=== PATIENT | male | born 1955 | race Caucasian/White ===

== ENCOUNTER 2018-03-29 11:18 | Inpatient (IN) ==
[2018-03-29] MEDS ORDERED: Etomidate Inj 40 MG/20 ML Vial IV.PUSH ONE (11:19)
[2018-03-29] MEDS ORDERED: Midazolam 50 MG/50 ML Inj 50 MG/50 ML BAG IV.CONT ONE (11:25)
[2018-03-29] MEDS ORDERED: Aspirin 300 MG Supp RECTAL ONE ×2 (11:25→14:00)
[2018-03-29] MEDS ORDERED: fentaNYL 10 mcg/mL Premix Drip 2,500 MCG/250 ML BAG ONE (11:25)
[2018-03-29] MEDS ORDERED: Heparin 10,000 UNITS/10 ML Vial (for IV use) IV.PUSH STA (11:28)
[2018-03-29] MEDS ORDERED: Heparin Drip 25,000 UNIT/250 ML BAG IV.CONT PRN (11:31)
[2018-03-29] MEDS ORDERED: Succinylcholine Inj 200 MG/10 ML Vial ONE (11:31)
[2018-03-29] MEDS: fentaNYL 10 mcg/mL Premix Drip 2,500 MCG/250 ML BAG IV.SIG PRN (11:33)
[2018-03-29] MEDS ORDERED: Etomidate Inj 20 MG/10 ML Ampul IV.PUSH ONE (11:34)
--- NOTE | 2018-03-29 11:34 | ED ---
HPI General Stated Complaint: STEMI Time Seen by Provider: 03/29/18 11:24 Source: EMS Mode of arrival: EMS Limitations: altered mental status History of Present Illness HPI narrative: Patient is a 63-year-old male who presents the emergency room via EMS for STEMI alert. As per EMS, patient was with a girlfriend and reported to her that he was not feeling well. He had a syncopal episode. Apparently, patient did not hit his head on the floor, he was lowered to the floor. Patient did lose pulses, bystanders started CPR. When EMS arrived on scene, patient was found to be in V. fib arrest, he was shocked once at 150 and return to pulses. Patient was found to have ST segment elevations in leads II, III, aVF with reciprocal changes. Patient presents the emergency room obtunded , patient unable to provide any HPI. Related Data Home Medications Medication Instructions Recorded Confirmed Unable to Obtain Home Meds 03/29/18 03/29/18 Allergies Allergy/AdvReac Type Severity Reaction Status Date / Time No Allergy Information Allergy Verified 03/29/18 11:38 Available Review of Systems ROS Unobtainable ROS Unobtainable: unobtainable due to mental status PMFSH History History Provided By: Health Administrator / EMT Medical History Medical History Hypertension (Acute) Exam Narrative Exam Narrative: GENERAL: severe distress SKIN: Focused skin assessment warm/dry. HEAD: Atraumatic. Normocephalic. EYES: Pupils equal and round. No scleral icterus. No injection or drainage. ENT: No nasal bleeding or discharge. Mucous membranes pink and moist. NECK: Trachea midline. No JVD. CARDIOVASCULAR: Regular rate and rhythm. No murmur appreciated. RESPIRATORY: No accessory muscle use. Clear to auscultation. Breath sounds equal bilaterally. GASTROINTESTINAL: Abdomen soft, non-tender, nondistended. Hepatic and splenic margins not palpable. MUSCULOSKELETAL: No obvious deformities. No clubbing. No cyanosis. No edema. NEUROLOGICAL: GCS 3, patient unresponsive Procedures Intubation Time Out Performed: Yes Sedative: etomidate Mg Given: 40 Laryngoscope: fiber optic video scope Assist Device Used: fiber optic device ET Tube Size: 8 ET Tube Uncuffed: No Tube Secured Depth (cm): 24 Tube Secured Location: teeth Tube Placement Confirmation: visualized tube passing through cords, equal breath sounds bilaterally, no breath sounds over epigastrium and confirmation by capnometry Patient Tolerated Procedure: well Intubation Complications: none Course Reevaluation(s) Reevaluation #1: Intubation performed under direct supervision of my attending. I was in the room directly supervising Trini during the intubation Time: 11:30 Critical Care Time Critical Care Time: Yes Total Critical Care Time: 30 Attestation: Aggregate critical care time was 30 minutes. Time to perform other separately billable procedures was not included in the critical care time. My time did not include minutes spent treating any other patients simultaneously or on activities that did not directly contribute to the patient's treatment. The services I provided to this patient were to treat and/or prevent clinically significant deterioration that could result in: , decompensation, deterioration I provided critical care services requiring my management, as noted below: Chart data review, documentation time, medication orders and management, vital sign assessments/reviewing monitor data, ordering and reviewing lab tests, ordering and interpreting/reviewing x-rays and diagnostic studies, care of the patient and discussion of the patient with the admitting physicians. Medical Decision Making MDM Narrative Medical decision making narrative: During the course of the patients emergency department visit, the patients history, examination, and differential diagnosis were reviewed with the patient. The patient was placed on a nuclear monitoring technician with oximetry and frequent blood pressure monitoring. The patient had an IV access obtained and blood work sent for analysis. The patient was initially provided aspirin rectally Patient with a GCS of 3 upon arrival to the emergency room, he was emergently intubated for airway protection. A STEMI alert was called overhead as patient does have ST segment elevations in 2, 3, aVF, he does have a reciprical changes. Dr. Fry at bedside, will bring him to the Fuel Operator emergently. Radiology studies were reviewed and remarkable for [-] Medical Screen Exam Complete: Yes Emergency Medical Condition: Yes Differential Diagnosis Differential Diagnosis: STEMI Lab Data Result diagrams: 03/29/18 11:20 Lab Results 03/29/18 03/29/18 Range/Units 11:20 11:20 WBC 12.2 H (4.0-11.0) th/mm3 RBC 4.14 L (4.50-5.90) mil/mm3 Hgb 13.7 (13.0-17.0) gm/dL POC Hgb (Calc) 13.6 (13.0-17.0) g/dL Hct 40.7 (39.0-51.0) % POC Hct 40.0 (39-51.0) % MCV 98.3 (80.0-100.0) fL MCH 33.1 (27.0-34.0) pg MCHC 33.7 (32.0-36.0) % RDW 14.6 (11.6-17.2) % Plt Count 243 (150-450) th/mm3 MPV 7.8 (7.0-11.0) fL Neut % (Auto) 60.0 (16.0-70.0) % Lymph % (Auto) 32.3 (9.0-44.0) % Aiken % (Auto) 4.4 (0.0-8.0) % Eos % (Auto) 2.8 (0.0-4.0) % Baso % (Auto) 0.5 (0.0-2.0) % Neut # (Auto) 7.3 (1.8-7.7) th/mm3 Lymph # (Auto) 3.9 (1.0-4.8) th/mm3 Aiken # (Auto) 0.5 (0.0-0.9) th/mm3 Eos # (Auto) 0.3 (0.0-0.4) th/mm3 Baso # (Auto) 0.1 (0.0-0.2) th/mm3 WBC Differential . Differential Comment Auto diff final POC Sodium 127 L (137-144) mmol/L POC Potassium 4.3 (3.6-5.0) mmol/L POC Chloride 96 L (102-111) mmol/L POC BUN 13 (5-21) mg/dL POC Creatinine 1.8 H (0.6-1.3) mg/dL POC Glucose 154 H (68-110) mg/dL ECG Data EKG Prior to Arrival: Yes Attestation: I personally reviewed and interpreted this ECG as follows: Interpretation: EKG at 1119: Sinus tach at 105bpm, st seg elevation II, III, aVF , ST seg depression V1-V5 Discharge Plan Discharge Disposition Patient Disposition: 30 Still Patient Discharge Condition Condition: Critical Discharge Details Diagnosis: ST elevation myocardial infarction (STEMI) Physicians Team ED Provider: Quiana Kline ED Midlevel Provider: Trini Zimmerman Primary Care Provider: UNKNOWN, Rxs /Orders / Referrals /Forms Prescriptions: No Action Unable to Obtain Home Meds RF: 0 Status ED Status: With Doctor
[2018-03-29 11:49] LABS: Baso # (Auto) 0.1 th/mm3 (0.0-0.2); Baso % (Auto) 0.5 % (0.0-2.0); Eos # (Auto) 0.3 th/mm3 (0.0-0.4); Eos % (Auto) 2.8 % (0.0-4.0); Hematocrit 40.7 % (39.0-51.0); Hemoglobin 13.7 gm/dL (13.0-17.0); Lymph # (Auto) 3.9 th/mm3 (1.0-4.8); Lymph % (Auto) 32.3 % (9.0-44.0); Mean Corpuscular HGB Conc 33.7 % (32.0-36.0); Mean Corpuscular Hemoglobin 33.1 pg (27.0-34.0); Mean Corpuscular Volume 98.3 fL (80.0-100.0); Mean Platelet Volume 7.8 fL (7.0-11.0); Mono # (Auto) 0.5 th/mm3 (0.0-0.9); Mono % (Auto) 4.4 % (0.0-8.0); Neut # (Auto) 7.3 th/mm3 (1.8-7.7); Platelet Count 243 th/mm3 (150-450); Red Blood Count 4.14 mil/mm3 (4.50-5.90); Red Cell Distribution Width 14.6 % (11.6-17.2); White Blood Count 12.2 th/mm3 (4.0-11.0)
[2018-03-29] MEDS ORDERED: Heparin/NS PF Inj 1,000 ML ONE (11:50)
[2018-03-29] MEDS ORDERED: Heparin 10,000 UNITS/10 ML Vial (for IV use) ONE (11:50)
[2018-03-29] MEDS: Midazolam 50 MG/50 ML Inj 50 MG/50 ML BAG IV.CONT PRN ×2 (11:50→20:31)
[2018-03-29 11:59] LABS: Calcium 9.1 mg/dL (8.5-10.1); Prothrombin Time 9.9 sec (9.8-11.6)
[2018-03-29 12:08] LABS: Creatine Kinase 127 U/L (39-308); Troponin I 0.29 ng/mL (0.02-0.05)
[2018-03-29 12:20] LABS: Creatine Kinase MB 2.7 ng/mL (0.5-3.6)
--- NOTE | 2018-03-29 13:05 | CATHPROC ---
3sun HIS Report Study Information Study Number Admission Scheduled Start Study Start [id number] Mar 29 2018 11:18AM 03/29/2018 Mar 29 2018 11:31AM [place] [facility] Cardiac Catheterization Admit Source Facility Department Emergency department [facility] - Reporting Coordinator Physician and Clinical Staff Initial Ranjan Garcia Adult Ministries Director Jes Davis,FAYE Adult Ministries Director Quiana Sanchez,FAYE Recorder Damien Blue,RT(R) Scrub Cristina Barrow ,RT(R) Procedures Performed Procedure Location (Site) Vessel Name Coronary Angiograms LCA Left Coronary Coronary Angiograms RCA Right Coronary Drug Eluting Inflatio RCA Prox Right Coronary IVUS RCA Right Coronary L Heart Cath PTCA RCA Prox Right Coronary Wire insertion Fem Art (right) Femoral Art Equipment Time Demurrage Agent Description Size Mfg Part Number Used/Scraped WIRE, BALANCE MIDDLEWEIGHT [id number] 11:52 [employer] 190CM Used 190CM *[id number] TRANSDUCER, TRUWAVE [id number] 11:35 LUEVANO KAT * Used W/STOCKCOCK *[id number] BALLOON, 3.5 15[place] [id number] 12:33 [employer] 3.5 15MM Used QUANTUM APEX MR *[id number] 12:24 [employer] STENT, SYNERGY 3.0 X 20MM Used *[id number] INTRODUCER SET, 11:35 [employer] FR 5 [id number] *[id number] Used MICROPUNCTURE STIFF [id number] *[id number] *[id number] 12:46 DAIG/[employer] ANGIOSEAL, FR6 VIP FR 6 Used *[id number] 11:35 [employer] BLANKET,WARM AIR CCL * Used *[id number] 11:35 [employer] PACK, CCL CUSTOM * Used *[id number] 12:32 [employer] MEDICAL 30 TYLER INDEFLATOR Used *[id number] 11:35 [place] [employer] WIRE, 3MMJ .035 180CM 180CM Used *[id number] 11:35 NAMIC MANIFOLD, 4 PORT * Used *[id number] 11:35 [employer]COMED OMNIPAQUE, 350 MG, 150ML 150ML [id number] Used 11:42 NYCOMED OMNIPAQUE, 350 MG, 50ML 50ML [id number] Used [id number] 11:49 TERUMO MEDICAL SHEATH, FR6 TERUMO (10CM) FR 6 Used *[id number] CATHETER, [employer] NATIVE [id number] 12:08 [employer]OL[employer] Used IMAGING *[id number] Equipment Model, Serial, Lot Number and Expiration Data Description Model Number Serial Number Lot Number Expiration Date ANGIOSEAL, FR6 MILLI [id number] 12-03-2018 BALLOON, 3.5 15MM NC QUANTUM [id number] 10-23-2019 APEX MR CATHETER, [employer] NATIVE [id number] 11-04-2019 IMAGING STENT, SYNERGY [id number] 04-18-2018 History: Allergies Allergy Reaction No Allergy Information Available History: Risk Factors Family History of Hypertension Dyslipidemia Previous SC Previous Heart Failure Premature CAD Yes No No No No Prior Valve Prior PCI Prior CABG Surgery No Yes No Cerebrovascular Peripheral Artery Chronic Lung On Dialysis Diabetes Disease Disease Disease No No No No No History: Symptoms/Diagnosis Selection Items Syncope History: CV Disease Selection Items Cardiomyopathy History: Stress Tests Stress or Imaging Studies Performed No History: Arrhythmias Selection Items Supraventricular History: Other Current Smoker No Labs Hgb (g/dl) Hct (%) 11.60-17.00 35.00-51.00 13.6 40 Glucose (mg/dl) BUN (mg/dl) Creatinine (mg/dl) BUN:Creatinine (1:x) 74.00-106.00 7.00-18.00 0.50-1.30 10.00-20.00 154 13 1.8 7.2 Na (meq/l) K (meq/l) Cl (meq/l) 136.00-145.00 3.50-5.10 98.00-107.00 127 4.3 96 CPK-MB (ng/ML) 0.50-3.60 Not Drawn Medication Medication Total Dose (Bolus/Oral) Medication Total Dosage/Unit 1% XYLOCAINE 20 mL BRILLINTA 180 mg FENTANYL 50 mcg/hr HEPARIN 7000 units NTG (IC) 150 mcg VERSED 2 mg VERSED 6 mg/hr Medications (Bolus/Oral) Medication Time Given Dosage/Unit Administered By Reason 03/29/2018 11:40:54 VERSED 2 mg/hr AM Patient arrived on 2 mg/hr VERSED in Right Antecubital via Peripheral IV. Pump/Drip Flow = 0 ml/hr us ing D5W. 03/29/2018 11:41:13 FENTANYL 50 mcg/hr AM Patient arrived on 50 mcg/hr FENTANYL in Right Antecubital via Peripheral IV. Pump/Drip Flow = 0 ml/h r using NaCl .9. 03/29/2018 11:47:27 1% XYLOCAINE 20 mL Ranjan Fry AM 20 mL 1% XYLOCAINE given in lab by Ranjan Fry in Right Groin via Subcutaneous. 03/29/2018 12:06:38 VERSED 4 mg/hr PM Patient arrived on 4 mg/hr VERSED in Right Antecubital via Peripheral IV. Pump/Drip Flow = 0 ml/hr us ing D5W. Increased in lab. 03/29/2018 12:08:40 HEPARIN 6000 units Jes Davis PM 6000 units HEPARIN given in lab by Jes Davis RN in Left Hand via Peripheral IV. 03/29/2018 12:26:36 NTG (IC) 150 mcg Ranjan Fry 150 mcg NTG (IC) given in lab by Ranjan Fry via Intra-coronary. 03/29/2018 12:28:29 HEPARIN 1000 units Jes Davis PM 1000 units HEPARIN given in lab by Jes Davis, FAYE in Left Hand via Peripheral IV. 03/29/2018 12:31:03 VERSED 2 mg Jes Davis 2 mg VERSED given in lab by Jes Davis, FAYE in Left Hand via Peripheral IV. 03/29/2018 12:53:49 BRILLINTA 180 mg Jes Davis PM 180 mg BRILLINTA given in lab by Jes Davis, FAYE in Per mouth via Oral. Medication (Drip) Medication Time Given Dosage/Unit Concentration/Unit Diluent (ml) Solutio n 03/29/2018 11:43:32 IV Solutions 0 mL (IV) 500 NaCl .9 AM IV Solutions given in lab by Quiana Sanchez, FAYE in Left Hand via Peripheral IV. Pump/Drip Flow = 20 ml/hr using NaCl .9. Initial Case Assessment Cardiovascular HR Rhythm NIBP 96 Irregular 141/99 Edema Present Skin color Skin None Pale Warm Flush Circulatory - Right Pulses Dorsalis Pedis Femoral 2 2 Scale (0,1,2,3,4,d) Circulatory - Left Pulses Dorsalis Pedis Femoral 2 2 Scale (0,1,2,3,4,d) Neurological State Unresponsive Respiration - General Respiration Rate SpO2 (%) (B/min) 15 99 Respiration - Ventilator Type Intubation Type ET(oral) Final Case Assessment Cardiovascular HR Rhythm NIBP 99 Sinus 154/122 Edema Present Skin color Skin None Flush Flush Circulatory - Right Pulses Dorsalis Pedis Femoral 2 2 Scale (0,1,2,3,4,d) Circulatory - Left Pulses Dorsalis Pedis Femoral 2 2 Scale (0,1,2,3,4,d) Neurological State Unresponsive Respiration - General Respiration Rate SpO2 (%) (B/min) 14 99 Respiration - Ventilator Type Intubation Type ET(oral) Chronological Log Time Study Chronological Log 11:33:30 Patient arrived via Bed. 11:33:31 Patient Name, D.O.B, / Armband Verified By R.N. 11:33:32 Consent signed by the physician and the patient and verified by the Reporting Coordinator staff. 11:33:34 Pre-op and post- op instructions given; patient acknowledges understanding of instructions. 11:33:35 Verbal Stimulation=2 Physical Stimulation=2 Airway=2 Respiration=2 TOTAL=8. (0=absent, 1=li mited, 2=present) 11:33:36 Presedation assessment performed by Reporting Coordinator RN. 11:33:46 Patient has been NPO for Less than 6Hrs. 11:33:47 Skin Breakdown- unknown. 11:33:49 Patient Warmer Placed on the Table. Vitals capture started with the following parameters, Patient=Adult, Interval=5 min, Initial Pr zqeega=224 mmHg, 11:38:24 Deflation Rate=5 mmHg, Cuff placed on Left Arm 11:39:33 HR=95 bpm, OPDE=533/99 mmhg, IlN5=787.0 %, Resp=10 B/min, Lexus=10, Pacheco=6 11:40:10 Jose Prominences Protected 11:40:42 MD arrived. 11:40:53 A # 20 IV was noted in the Antecubital (right). Grade = 0 11:40:54 Patient arrived on 2 mg/hr VERSED in Right Antecubital via Peripheral IV. Pump/Drip Flow = 0 ml/hr using D5W. 11:41:13 Patient arrived on 50 mcg/hr FENTANYL in Right Antecubital via Peripheral IV. Pump/Drip J Carlos w = 0 ml/hr using NaCl .9. 11:41:18 A # 20 IV was noted in the Hand (left). Grade = 0 IV Solutions given in lab by Quiana Sanchez RN in Left Hand via Peripheral IV. Pump/Drip Flow = 20 ml/hr using NaCl 11:43:32 .9. 11:43:57 HR=96 bpm, AZUG=381/95 mmhg, SpO2=99.0 %, Resp=17 B/min, Lexus=5, Pacheco=6 Assessment: Initial Case, HR=96 BPM, Rhythm=Irregular, XZAV=327/99 mmhg, Edema=None, Color=Pale , Skin = Warm, Flush Right Pulses: Dominick Ped=2, Femoral=2 11:44:21 Left Pulses: Dominick Ped=2, Femoral=2 Neurological: State=Unresponsive Respiration: Resp=15 B/min, SpO2=99 %, Type=ET(Oral) Time Out. Correct patient, correct procedure, correct physician, labs, allergies, and equipment verified with cath lab tech 11:46:18 team present. Fire risk assesment completed (see hard stop sheet for coding). Time Out Conc urred by MD and individual staff in procedure. 11:46:48 Pressure channel 1 zeroed. 11:47:27 20 mL 1% XYLOCAINE given in lab by Ranjan Fry in Right Groin via Subcutaneous. 11:47:28 Case Start 11:48:55 Access site was Right Femoral Artery. 11:48:59 HR=95 bpm, QQTR=901/84 mmhg, SpO2=99.0 %, Resp=15 B/min, Lexus=5, Pacheco=6 11:49:04 A SHEATH, FR6 TERUMO (10CM) FR 6 was advanced into the Fem Art (right) using the Percutaneo us technique. 11:49:05 Reference ECG taken 11:50:20 An injection in the Fem Art (right) was made through the SHEATH, FR6 TERUMO (10CM) FR 6. A JL 4.0 INFINITI CATHETER FR 6 was advanced over a wire. OMNIPAQUE, 350 MG, 150ML 150ML was us ed for 11:50:55 injections. Recorded Pressure: Ao, HR=96, Condition=Condition 1 11:52:15 (Aorta) Ao 118/67/89 11:52:21 The LCA was injected and visualized at various angles. OMNIPAQUE, 350 MG, 150ML 150ML used . After removing the current catheter a JR 4.0 GUIDE CATHETER FR 6 was advanced over a WIRE, 3MMJ .035 180CM 11:53:16 180CM. 11:53:58 HR=96 bpm, KILB=717/86 mmhg, SpO2=99.0 %, Resp=16 B/min, Lexus=5, Pacheco=6 Recorded Pressure: LV, HR=95, Condition=Condition 1 11:54:44 (Left Ventricle) LV 126/5/11 Recorded Pressure: LV, Ao, HR=96, Condition=Condition 1 11:54:59 (Left Ventricle) LV 128/4/11, (Aorta) Ao 126/68/94 11:56:24 The RCA was injected and visualized at various angles. OMNIPAQUE, 350 MG, 150ML 150ML used . 11:59:31 XU=729 bpm, OAJQ=809/82 mmhg, JkE7=499.0 %, Resp=15 B/min, Lexus=5, Pacheco=6 12:04:00 HR=98 bpm, QFOG=284/79 mmhg, FxJ3=957.0 %, Resp=15 B/min, Lexus=5, Pacheco=6 Patient arrived on 4 mg/hr VERSED in Right Antecubital via Peripheral IV. Pump/Drip Flow = 0 ml /hr using D5W. 12:06:38 Increased in lab. 12:08:40 6000 units HEPARIN given in lab by Jes Davis, FAYE in Left Hand via Peripheral IV. 12:08:59 HR=97 bpm, IZLO=643/89 mmhg, SpO2=99.0 %, Resp=15 B/min, Lexus=5, Pacheco=6 12:10:14 A WIRE, BALANCE MIDDLEWEIGHT 190CM 190CM was inserted via Fem Art (right). 12:12:15 An CATHETER, [employer] IMAGING was advanced through the lesion. Images saved onto IVUS hard drive 12:13:00 IVUS in progress using CATHETER, [employer] IMAGING Mean Luminal Area measured ~ELSIE N LUMINAL~ 12:14:39 OR=346 bpm, ZIYR=679/92 mmhg, BmU4=355.0 %, Resp=16 B/min, Lexus=5, Pacheco=6 12:15:00 IVUS catheter removed 12:19:34 EG=903 bpm, FMFM=328/75 mmhg, OiH4=273.0 %, Resp=19 B/min, Lexus=5, Pacheco=6 12:20:00 Activated Clotting Time Drawn 12:24:41 HR=97 bpm, IFEW=263/74 mmhg, YjX9=338.0 %, Resp=15 B/min, Lexus=5, Pacheco=6 A STENT, SYNERGY 3.0 X 20MM was advanced through a JR 4.0 GUIDE CATHETER FR 6 over a WIRE, [place]UB[place]AM NCE 12:25:00 MIDDLEWEIGHT 190CM 190CM. 12:26:36 150 mcg NTG (IC) given in lab by Ranjan Fry via Intra-coronary. 12::29 1000 units HEPARIN given in lab by Jes Davis, FAYE in Left Hand via Peripheral IV. 12:29:24 WK=000 bpm, MQTS=167/97 mmhg, TpX6=764.0 %, Resp=26 B/min, Lexus=5, Pacheco=6 A STENT, SYNERGY 3.0 X 20MM was deployed using a 30 TYLER INDEFLATOR at 12 atmospheres for 14 sec onds in the 12:30:57 RCA Prox. 12:31:03 2 mg VERSED given in lab by Jes Davis, FAYE in Left Hand via Peripheral IV. A STENT, SYNERGY 3.0 X 20MM was deployed using a 30 TYLER INDEFLATOR at 14 atmospheres for 10 sec onds in the 12:31:43 RCA Prox. 12:32:02 Delivery device removed 12:34:08 ON=192 bpm, RLUD=239/72 mmhg, KfS0=203.0 %, Resp=15 B/min, Lexus=5, Pacheco=6 A BALLOON, 3.5 15MM NC QUANTUM APEX MR 3.5 15MM was inserted over WIRE, BALANCE MIDDLEWEIGHT 19 0CM 12:34:39 190CM via the RCA Prox. A BALLOON, 3.5 15MM NC QUANTUM APEX MR 3.5 15MM over a WIRE, BALANCE MIDDLEWEIGHT 190CM 190CM i n the 12:35:13 RCA Prox was inflated using a 30 TYLER INDEFLATOR at 14 tyler for 14 sec. A BALLOON, 3.5 15MM NC QUANTUM APEX MR 3.5 15MM over a WIRE, BALANCE MIDDLEWEIGHT 190CM 190CM i n the 12:35:30 RCA Prox was inflated using a 30 TYLER INDEFLATOR at 18 tyler for 10 sec. A BALLOON, 3.5 15MM NC QUANTUM APEX MR 3.5 15MM over a WIRE, BALANCE MIDDLEWEIGHT 190CM 190CM i n the 12:36:12 RCA Prox was inflated using a 30 TYLER INDEFLATOR at 18 tyler for 15 sec. 12:37:56 Balloon Removed. 12:38:10 An CATHETER, [employer] IMAGING was advanced through the lesion. Images saved o [employer] IVUS hard drive 12:38:17 IVUS in progress using CATHETER, [employer] IMAGING Mean Luminal Area measured ~ELSIE N LUMINAL~ 12:38:59 PA=816 bpm, TPNT=706/68 mmhg, XzX7=907.0 %, Resp=16 B/min, Lexus=5, Pacheco=6 12:39:08 IVUS catheter removed A BALLOON, 3.5 15MM NC QUANTUM APEX MR 3.5 15MM was inserted over WIRE, BALANCE MIDDLEWEIGHT 19 0CM 12:40:59 190CM via the RCA Prox. A BALLOON, 3.5 15MM NC QUANTUM APEX MR 3.5 15MM over a WIRE, BALANCE MIDDLEWEIGHT 190CM 190CM i n the 12:41:08 RCA Prox was inflated using a 30 TYLER INDEFLATOR at 20 tyler for 25 sec. 12:42:22 Balloon Removed. 12:43:58 HR=98 bpm, OXMD=041/79 mmhg, WtY6=940.0 %, Resp=14 B/min, Lexus=5, Pacheco=6 12:44:12 Wire removed 12:45:07 A WIRE, 3MMJ .035 180CM 180CM was inserted via Fem Art (right). 12:45:13 Catheter was removed 12:45:15 Wire removed 12:47:10 ANGIOSEAL, FR6 VIP FR 6 placement in the Fem Art (right) 12:48:11 Case End (Physician broke scrub) 12:48:20 No case complications noted. 12:48:21 Cine recording checked. 12:49:36 PR=925 bpm, ZENO=816/122 mmhg, Resp=19 B/min, Lexus=5, Pacheco=6 12:50:07 Bedside Report will be given. 12:50:16 Implantable Device card placed in patient's chart. 12:50:20 A Left Heart Cath was performed. Assessment: Final Case, HR=99 BPM, Rhythm=Sinus, JMEA=063/122 mmhg, Edema=None, Color=Flush, S kin = Flush Right Pulses: Dominick Ped=2, Femoral=2 12:50:23 Left Pulses: Dominick Ped=2, Femoral=2 Neurological: State=Unresponsive Respiration: Resp=14 B/min, SpO2=99 %, Type=ET(Oral) 12:53:49 180 mg BRILLINTA given in lab by Jes Davis, RN in Per mouth via Oral. 12:54:08 HR=97 bpm, FDHZ=351/72 mmhg, Resp=13 B/min, Lexus=5, Pacheco=6 12:56:39 Vitals capture stopped. End Study - Contrast Media Used In Study Contrast Total Opened (mL) Total Used (mL) Total Wasted (mL) Omnipaque 150 125 25 End Study - Maximum Contrast Load Max Contrast Load (mL) 227.3 End Study - Radiation Exposure Fluoro Time (minutes) 12.2 End Study - Patient Disposition Complications Transferred To Interventional Outcome No Critical Care Bed successful
[2018-03-29] MEDS ORDERED: Misc Info for Pharmacy OTHER STA (13:11)
[2018-03-29] MEDS ORDERED: Aspirin 325 MG Tablet PO ONE (13:17)
[2018-03-29] MEDS ORDERED: Iohexol 350 MG/ML 100 ML Vial (for Cath Lab) IVCONTRAST ONE (13:27)
[2018-03-29] MEDS ORDERED: Iohexol 350 MG/ML 50 ML Vial (for Cath Lab) IVCONTRAST ONE (13:27)
[2018-03-29] MEDS ORDERED: Cisatracurium Inj 20 MG/10 ML Vial IV.PUSH ONE (14:27)
[2018-03-29] MEDS ORDERED: Cisatracurium Inj 100 MG in Sodium Chlor 0.9% Inj 240 ML IV.CONT PRN (14:28)
[2018-03-29] MEDS ORDERED: Artificial Tears Opth Oint 3.5 GM Tube EACH EYE PRN (14:43)
[2018-03-29] MEDS ORDERED: Mix all IV Meds in NS MISCELLANE PRN (14:59)
[2018-03-29] MEDS ORDERED: Sod Chloride 0.9% Inj 2,000 ML IV.SIG SCH (15:00)
[2018-03-29] MEDS: Cisatracurium Inj 100 MG in Sodium Chlor 0.9% Inj 240 ML IV.CONT PRN (15:10)
--- NOTE | 2018-03-29 15:23 | P.CONCC ---
History of Present Illness Service: critical care medicine Consult date: 03/29/18 Requesting Physician: Ranjan Fry Reason for Consult: Cardiac arrest Primary Care Provider: UNKNOWN Chief Complaint: Out of hospital V fib arrest, STEMI alert History of Present Illness: Patient is a 63-year-old male who presents the emergency room via EMS for STEMI alert. As per EMS, patient was with a girlfriend and reported to her that he was not feeling well. He had a syncopal episode. Apparently, patient did not hit his head on the floor, he was lowered to the floor. Patient did lose pulses , bystanders started CPR. When EMS arrived on scene, patient was found to be in V. fib arrest, he was shocked once at 150 and return to pulses. Patient was found to have ST segment elevations in leads II, III, aVF with reciprocal changes. Patient presents the emergency room obtunded, patient unable to provide any HPI. Per ER documentation GCS was 3 following return of spontaneous circulation. Patient was intubated in ER and placed on mechanical ventilation. STEMI alert was called and patient was evaluated by Dr. 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 RCA stenting performed at site of dissection. Patient was started on Versed and fentanyl during cardiac catheterization as he appeared to be gagging and fighting the ventilator. Following procedure he was [place] [facility] [place] following his arrival. I personally spoke with Dr. Kline and confirmed GCS 3 on her evaluation following patient's arrival to the ER. Decision was made to initiate hypothermia protocol. I spoke with patient's and son at bedside and they agreed to proceed with Quatro catheter placement and initiation of therapeutic hypothermia. According to patient's he was down for about 5 minutes before EMS arrival and being shocked. He was given bystander CPR by family immediately on going down. Review of Systems unobtainable due to mental status PMFSH - History History Provided By: Diabetes Trainer / EMT - Medical History Medical History: Medical History (Last Updated 03/29/18 @ 11:59 by Anai Merchant) Hypertension Pacemaker - Tobacco History Second Hand Smoke Exposure: Yes Tobacco Use In Past 30 Days: Yes Smoking Status: Smoker, status unknown Tobacco Type: Cigarettes - Alcohol History How Often Do You Have a Drink Containing Alcohol: Unable to Obtain - Substance Use History Substance History: Unable to Obtain - Travel History Recent Travel in the [place] Within the Last 8 Weeks: No Recent Travel Out of the Country Within the Last 8 Weeks: No - Immunization History Tetanus Immunization: Unable to Assess Medications and Allergies Active Medications: Active Medications Acetaminophen (Tylenol Liq) 650 mg NG/OG Q6H PRN PRN Reason: SHIVERING Artificial Tears (Lacrilube Opth Oint) 1 applicatio EACH EYE Q4H PRN PRN Reason: WHILE ON NMB Aspirin (Aspirin Chew) 81 mg PO DAILY OMAR Atorvastatin Calcium (Lipitor) 80 mg PO HS OMAR Midazolam HCl (Versed Inj) 50 mg in 50 mls @ 2 mls/hr IV.CONT TITRATE PRN; Protocol PRN Reason: Per Protocol Last Titration: 03/29/18 11:58 Dose: 4 mg/hr, 4 mls/hr Fentanyl (Fentanyl 10 Mcg/Ml Premix Drip) 2,500 mcg in 250 mls @ 5 mls/hr IV.SIG TITRATE PRN; Protocol PRN Reason: Per Protocol Last Titration: 03/29/18 11:58 Dose: 50 mcg/hr, 5 mls/hr Cisatracurium Besylate 100 mg/ (Sodium Chloride) 250 mls @ 38.16 mls/hr IV.CONT TITRATE PRN; Protocol PRN Reason: Per Protocol Norepinephrine Bitartrate 4 mg (/ Sodium Chloride) 250 mls @ 1.87 mls/hr IV.SIG TITRATE PRN; Protocol PRN Reason: Per Protocol Metoprolol Tartrate (Lopressor) 12.5 mg PO BID OAMR Sodium Chloride (Ns Flush) 2 ml IV.FLUSH BID OMAR Sodium Chloride (Ns Flush) 2 ml IV.FLUSH PRN PRN PRN Reason: FLUSH AFTER USING IV ACCESS Terbutaline Sulfate (Brethine Inj) 1 mg SQ UNSCH PRN PRN Reason: For Extravasation Ticagrelor (Brilinta) 90 mg PO BID [facility] Allergies Allergy/AdvReac Type Severity Reaction Status Date / Time No Allergy Information Allergy Verified 03/29/18 11:38 Available Home Medications Medication Instructions Recorded Confirmed Type Unable to Obtain Home Meds 03/29/18 03/29/18 History Physical Exam Vital signs: Vital Signs 03/29/18 11:18 03/29/18 11:24 03/29/18 11:28 Temperature 97.7 F Pulse Rate 103 H 103 H 109 H Respiratory Rate 22 Blood Pressure 105/58 L 150/93 H Pulse Oximetry 100 100 99 03/29/18 13:26 Temperature Pulse Rate Respiratory Rate 16 Blood Pressure Pulse Oximetry Intake & Output 03/28/18 03/29/18 03/29/18 18:59 06:59 18:59 Intake Total 810 / 810 Balance 810 / 810 Weight 77.111 kg Intake: IV 10 / 10 Heparin/NS PF Inj 1,000 ML @ 0 10 / 10 mls/hr .ROUTE .[facility] Rx#: [id number] Anesthesia Amount 800 / 800 Narrative: HEENT/ Neuro: Sedated, orally intubated, Pallor present, no icterus, tongue/ mucosa moist. No response to painful stimuli on stopping sedation with no purposeful movements.. Opened eyes transiently with blank stare. Neck: No JVD Chest/Pulm: on mech vent, good air entry bilaterally, no wheezing or crackles CVS: S1-S2 regular, no murmur GI/abdomen: soft, nontender, bowel sounds sluggish Extremities: warm bilaterally, no edema Assessment and Plan - Assessment and Plan Plan: 63-year-old male with: Out of hospital V. fib arrest status post CPR Inferior wall STEMI status post PCI to RCA Acute respiratory failure on mechanical ventilation Suspected anoxic encephalopathy Hyperlipidemia History of pacemaker placement Plan: Neuro: Follow neuro status. Starting therapeutic hypothermia protocol for anoxic brain injury. Sedation with Versed and fentanyl. Nimbex for neuromuscular blockade per protocol. Cardiovascular: IV hydration, watch for hypotension antiplatelet therapy per Dr. Fry. Status post PCI to RCA. Follow-up 2D echo. Statin/beta-emi per cardiology. Pulmonary: Continue mechanical ventilation, vent bundle, bronchodilators as needed. GI/liver: N.p.o. for now Renal/: IV hydration, strict intake output, monitor and replete electrolytes, follow BUN/creatinine. ID: No indication for antibiotics at this time. Heme: Follow CBC and coags. Endocrine: SSI for glycemic control if needed Prophylaxis: Pepcid/SCDs. Lovenox when okay with cardiology Discussed current clinical status and plan of care with patient's and son at bedside and they voiced understanding and were agreeable with plan. Condition critical. Time spent on critical care excluding procedures 60 minutes
--- NOTE | 2018-03-29 15:27 | P.PCN ---
Date of procedure: 03/29/18 Pre-op diagnosis: V. fib arrest status post CPR Post-op diagnosis: same Procedure: Left femoral vein central line/cooling catheter placement After sterile prepping and draping using 1% lidocaine for local infiltration anesthesia, left femoral vein was visualized using ultrasound vessel finder and under direct visualization was cannulated using an introducer needle with dark nonpulsatile blood return. A guidewire was passed through the introducer needle without any resistance and the needle was then removed. After making a skin stevie and dilation of tract, a Quattro cooling catheter was passed over the guidewire into the left femoral vein by modified Seldinger's technique and the guidewire was then removed. Good blood return obtained through all 3 ports which were then flushed and capped. After suturing the catheter in place, a Bioclusive dressing with Biopatch was applied to the site. Patient tolerated the procedure well with no immediate complications noted. Of note patient did have a left inguinal hernia hence ultrasound was used for line placement. Anesthesia: local Surgeon: Trae Flores Estimated blood loss (mL): 5 Pathology: none sent Condition: critical Disposition: ICU
[2018-03-29 15:53] LABS: Albumin 2.8 g/dL (3.4-5.0); Magnesium 1.9 mg/dL (1.5-2.5); Phosphorus 3.2 mg/dL (2.5-4.9)
[2018-03-29 15:55] LABS: Total Protein 5.5 g/dL (6.4-8.2)
--- NOTE | 2018-03-29 15:59 | XR ---
EXAM DATE: 03/29/2018 11:24 AM EDT AGE/SEX: 63 years / Male INDICATIONS: Status post intubation. CLINICAL DATA: This is the patient's initial encounter. Patient reports that signs and symptoms have been present for 1 day and indicates a pain score of Nonresponsive. MEDICAL/SURGICAL HISTORY: Non-responsive. Non-responsive. COMPARISON: No prior exams available for comparison. FINDINGS: The endotracheal tube appears to be in good position overlying the tracheal air shadow. There is an N G tube in the stomach. There is no pneumothorax. The lungs are clear and well aerated bilaterally. Th ere are no pleural effusions or pulmonary edema. The heart size is within normal limits. There is a p acemaker overlying the left chest. The bony structures are grossly intact. CONCLUSION: 1. The endotracheal tube and NG tube are in good position. 2. No evidence of pneumothorax. 3. No acute pulmonary infiltrates. Electronically signed by: Quinton Polanco MD 03/29/2018 3:58 PM EDT
[2018-03-29] MEDS: Oral Hygiene Kit OROPHARYNG SCH (16:15)
--- NOTE | 2018-03-29 17:41 | ECHRPT ---
Indication: CORONARY ATHEROSCLEROSIS, S/P STEMI CONCLUSIONS Technically difficult study The left ventricular systolic function is moderately reduced with an estimated ejection fraction in the range of 40-45%. There is diffuse global hypokinesis. Doppler parameters are consistent with impaired left ventricular relaxtion (grade 1 diastolic dysfun ction). Trace mitral valve regurgitation. BP: / HR: Rhythm: Sinus MEASUREMENTS (Male / Female) Normal Values Technical Quality:Technically difficult study 2D ECHO LVOT Diameter 2.1 cm Aortic Root Diameter 3.4 cm DOPPLER AV Peak Velocity 112.0 cm/s AV Peak Gradient 5.0 mmHg AV Mean Gradient 3.0 mmHg AV Velocity Time Integral 18.9 cm LVOT Peak Velocity 110.0 cm/s LVOT Peak Gradient 4.8 mmHg LVOT Velocity Time Integral 19.0 cm AV Area Cont Eq vti 3.5 cm AV Area Cont Eq pk 3.4 cm Mitral E Point Velocity 52.3 cm/s Mitral A Point Velocity 69.6 cm/s Mitral E to A Ratio 0.8 TR Peak Velocity 224.0 cm/s TR Peak Gradient 20.1 mmHg FINDINGS LEFT VENTRICLE Normal left ventricular size. Wall thickness is normal. The left ventricular systolic function is moderately reduced with an estimated ejection fraction in the range of 40-45%. There is diffuse global hypokinesis. Doppler parameters are consistent with impaired left ventricular relaxtion (grade 1 diastolic dysfun ction). RIGHT VENTRICLE Grossly normal LEFT ATRIUM The left atrial size is hhmx-xc-hcurxnsckq dilated. RIGHT [facility] The right atrial size is mildly dilated. ATRIAL SEPTUM No atrial level shunt is demonstrated by color flow Doppler interrogation. AORTA The aortic root and proximal ascending aorta are not well visualized. MITRAL VALVE Grossly normal Trace mitral valve regurgitation. No mitral valve stenosis. AORTIC VALVE Grossly normal. No aortic valve stenosis or regurgitation. TRICUSPID VALVE Grossly normal tricuspid valve. No tricuspid valve stenosis or regurgitation. PULMONARY VALVE The pulmonary valve is not well visualized. PERICARDIUM No pericardial effusion. Ranjan Fry DO (Electronically Signed) Final Date:29 March 2018 17:40
[2018-03-29 17:59] LABS: Hematocrit 35.6 % (39.0-51.0); Hemoglobin 12.2 gm/dL (13.0-17.0); Mean Corpuscular HGB Conc 34.4 % (32.0-36.0); Mean Corpuscular Hemoglobin 33.3 pg (27.0-34.0); Mean Corpuscular Volume 96.8 fL (80.0-100.0); Mean Platelet Volume 7.4 fL (7.0-11.0); Platelet Count 185 th/mm3 (150-450); Red Blood Count 3.68 mil/mm3 (4.50-5.90); Red Cell Distribution Width 14.5 % (11.6-17.2); White Blood Count 12.8 th/mm3 (4.0-11.0)
[2018-03-29] MEDS ORDERED: Enoxaparin Inj 40 MG/0.4 ML Syringe SQ SCH (18:00)
[2018-03-29 19:53] LABS: Amphetamine Screen,Urine Neg (Neg); Barbiturate Screen,Urine Neg (Neg); Cannabinoid Screen,Urine Neg (Neg); Cocaine Screen,Urine Neg (Neg)
[2018-03-29 20:03] LABS: Opiate Screen,Urine Neg (Neg)
[2018-03-29] MEDS: Chlorhexidine 0.12% Oral Kit 15 ML UDC OROPHARYNG SCH (20:32)
[2018-03-29] MEDS: Metoprolol Tartrate 25 MG Tablet PO SCH (20:32)
[2018-03-29] MEDS: Docusate Sodium Liq 100 MG/10 ML UDC PO SCH (20:32)
[2018-03-29] MEDS: Famotidine PF Inj 20 MG/2 ML Vial IV.PUSH SCH (20:33)
[2018-03-29 21:41] LABS: Bilirubin,Urine Negative (Negative); Clarity,Urine Clear (Clear); Color,Urine Straw (Yellw/Straw); Glucose,Urine (UA) Negative (Negative); Leukocyte Esterase,Urine Negative (Negative); Mucus,Urine Few /lpf (Occasional); Nitrite,Urine Negative (Negative); Squamous Epithelial Cell,Urine <1 /hpf (0-5)
[2018-03-30] MEDS: Oral Hygiene Kit OROPHARYNG SCH ×4 (00:12→16:57)
--- NOTE | 2018-03-30 02:13 | MH ---
cc: Ranjan Fry DO DATE OF ADMISSION: 03/29/2018 CHIEF COMPLAINT: Ventricular fibrillation arrest, STEMI. HISTORY OF CHIEF COMPLAINT: Olivier Marrero is a 63-year-old male who presented to EMS after a V-fib arrest as a STEMI alert. The patient is unable to provide any history, so history is taken from the chart as well as his girlfriend. He woke up this morning and stated that he was not feeling well and had a coughing episode and then vomited. His girlfriend felt that this was due to his asthma and so she told him to open up the freezer and take some nice deep breaths from the cold air. He then drove to [place], picked up family, and then came back. As he was coming in the door, she opened the door and he was going limp and she caught him and lowered him to the floor. At that time, they called 911 and apparently he was having agonal breathing and they told him not to start CPR quite yet. Eventually, they started CPR and EMS was there within 5 minutes. He was found to be in ventricular fibrillation and was shocked back to sinus rhythm. Upon arrival to the emergency room, his GCS score was 3 and he was intubated. EKG showed ST elevations in the inferior leads and I was called emergently to see the patient for consideration of cardiac catheterization. PAST MEDICAL HISTORY: 1. Asthma. 2. Hypertension. PAST SURGICAL HISTORY: 1. Coronary artery disease with stents placed in unknown coronary anatomy in April 2017. 2. Pacemaker placement for unknown reason. ALLERGIES: UNKNOWN. MEDICATIONS: Unknown. FAMILY HISTORY: Unknown/unable to obtain. SOCIAL HISTORY: Unable to obtain. REVIEW OF SYSTEMS: Unable to obtain due to the patient's critical nature. PHYSICAL EXAMINATION: VITAL SIGNS: Temperature 97.7, heart rate 103, blood pressure 155/58, respirations 22, pulse oximetry 100% on ventilator. GENERAL: The patient is currently intubated on Versed and fentanyl drip. HEENT: Pupils are equal and round. Mucous membranes moist. ET tube in place. NECK: Supple. No JVD at 45 degrees. No carotid bruits heard bilaterally. Carotid upstroke is brisk in nature. HEART: Regular rhythm, mildly tachycardic. Positive first and second heart sounds. LUNGS: Clear to auscultation bilaterally. No wheezes, rales or rhonchi. ABDOMEN: Soft, nontender, nondistended. No organomegaly noted. EXTREMITIES: Show no clubbing, cyanosis, or edema. Femoral pulses are intact. The patient does have a notable hernia on the left groin. NEUROLOGIC: Unable to obtain as the patient is currently intubated and sedated. SKIN: Warm, dry, and intact. LABORATORY DATA: Hemoglobin 13.7, hematocrit 40.7, platelets 243. Potassium 4.3, BUN 13, creatinine 1.8. Troponin 0.29. Electrocardiogram (03/29/2018 at 11:19): Sinus tachycardia with first-degree AV block, ST elevations inferiorly consistent with an acute inferior and posterior myocardial infarction. ASSESSMENT: 1. Ventricular fibrillation arrest. 2. Inferior/posterior ST elevation myocardial infarction. 3. Acute respiratory failure on mechanical ventilation. 4. Encephalopathy. 5. Hypertension. 6. History of coronary artery disease with 2 stents placed unknown coronary anatomy (04/2017). 7. History of pacemaker placement. PLAN: 1. Mr. Marrero presented with V-fib arrest and ST elevations inferiorly. 2. Due to the emergent nature, he will be taken to the laborer construction or leak gang for coronary visualization and intervention. 3. As the patient is currently intubated and sedated, emergent consent will be taken. 4. Post-procedure consideration will be made for therapeutic hypothermia. 5. We will check a 2-D echo to look at his overall left ventricular function, cardiac structure, and possible valvulopathies. Thank you for allowing me to see Olivier Marrero. If there are any questions, please do not hesitate to call. Ranjan Fry, DO VGP/sv , 12:24 AM , 12:35 AM
[2018-03-30 04:49] LABS: Baso % (Auto) 0.2 % (0.0-2.0); Eos % (Auto) 0.2 % (0.0-4.0); Hematocrit 33.9 % (39.0-51.0); Hemoglobin 11.6 gm/dL (13.0-17.0); Lymph # (Auto) 0.8 th/mm3 (1.0-4.8); Lymph % (Auto) 8.9 % (9.0-44.0); Mean Corpuscular HGB Conc 34.2 % (32.0-36.0); Mean Corpuscular Volume 96.5 fL (80.0-100.0); Mean Platelet Volume 7.5 fL (7.0-11.0); Mono # (Auto) 0.5 th/mm3 (0.0-0.9); Mono % (Auto) 5.3 % (0.0-8.0); Neut # (Auto) 8.1 th/mm3 (1.8-7.7); Neut % (Auto) 85.4 % (16.0-70.0); Platelet Count 170 th/mm3 (150-450); Red Blood Count 3.52 mil/mm3 (4.50-5.90); Red Cell Distribution Width 14.9 % (11.6-17.2); White Blood Count 9.5 th/mm3 (4.0-11.0)
[2018-03-30 05:40] LABS: Albumin 2.7 g/dL (3.4-5.0); Calcium 7.3 mg/dL (8.5-10.1); Carbon Dioxide 20.9 meq/L (21.0-32.0); Potassium 4.6 meq/L (3.5-5.1); Total Protein 5.6 g/dL (6.4-8.2)
[2018-03-30 05:47] LABS: Troponin I 13.3 ng/mL (0.02-0.05)
[2018-03-30] MEDS: Cisatracurium Inj 100 MG in Sodium Chlor 0.9% Inj 240 ML IV.CONT PRN ×2 (06:12→17:27)
[2018-03-30] MEDS: Midazolam 50 MG/50 ML Inj 50 MG/50 ML BAG IV.CONT PRN ×2 (06:13→16:30)
--- NOTE | 2018-03-30 07:11 | MA ---
cc: Ranjan Fry DO DATE: 03/29/2018 PROCEDURE: Left heart catheterization, coronary angiogram, moderate sedation 60 minutes, intravascular ultrasound right coronary artery, Synergy drug-eluting stent (3 x 20) to the right coronary artery, Angio-Seal right femoral. PREPROCEDURE DIAGNOSIS: Ventricular fibrillation arrest, inferior ST elevation myocardial infarction. POSTPROCEDURE DIAGNOSES: Ventricular fibrillation arrest, inferior/posterior ST elevation myocardial infarction, status post Synergy drug-eluting stent (3 x 20) for right coronary artery dissection. MEDICATIONS: Versed drip 2 mg per hour, fentanyl drip 50 mg per hour, heparin 7000 units, nitroglycerin 200 mcg, Versed 2 mg bolus, Brilinta 180 mg. CONTRAST USED: 125 mL. FLUOROSCOPY: 12.2 minutes. MODERATE SEDATION: 60 minutes. FRAILTY SCORE: 4. ESTIMATED BLOOD LOSS: 10 mL. PROCEDURAL SUMMARY: Olivier Marerro is a 63-year-old male who presented after a V-fib arrest with ST elevations inferiorly. I was called to see him emergently and felt that he needed to go to the industrial laborer immediately. Consent was done emergently as the patient was intubated and sedated. He was brought to the lab and prepped in the usual sterile fashion. The right femoral artery was accessed using a modified Seldinger technique and placement of a 6-Afghan sheath. This was easily aspirated and flushed. A JL 3.5 was advanced over a J-wire and engaged in the left main. Selective angiography of the left coronary artery was done. This was exchanged out for a JR4 guide, which was advanced into the left ventricle for measurement of LVEDP. This was pulled back across the aortic valve showing no significant gradient of aortic stenosis. JR4 guide was used for selective angiography of the right coronary artery. No occluded vessels were noted, but there was concern for possible dissection in the proximal portion of the RCA. The patient was given heparin at this time. A BMW wire was advanced into the distal RCA. IVUS catheter was taken of the distal to the area of concern and imaging was done on pullback. During pullback, there is significant disease throughout the proximal portion of the RCA and questionable dissection. A Synergy drug-eluting stent (3 x 20) was placed just proximal to his previous stent to cover the dissection. While placing this, angiogram showed significant spasm of the RCA as well as elevation of his STs. Stent was removed and nitroglycerin was given, which relieved the spasm within the RCA. Stent was placed again with overlap proximal to his previous stent to cover the dissection. Stent balloon was then moved forward and inflated over the overlap of the stents. This was exchanged out for a noncompliant balloon (3.5 x 15), which was used to post-dilate the stent. IVUS was then advanced again and stent showed that it was well opposed distally, but the proximal portion was not fully opposed. The noncompliant balloon (3.5 x 15) was readvanced and used to post-dilate the proximal portion of the stent. The wire was removed. Final angiogram shows well-opposed stent with no perforations or dissections. An Angio-Seal was used to close the right femoral arteriotomy site . An OG tube was then placed and angiogram showed that it was within the stomach. The patient was given 180 mg of Brilinta. He left the industrial laborer in a critical but stable state. FINDINGS: LEFT MAIN: Normal-sized vessel with adequate reflux. There appears to be 10% disease. LAD: Qxivd-sb-gchgjkyp sized vessel with diffuse disease throughout. Distal portion becomes extremely small with a 70% lesion and an overall small vessel, but this may be due to spasm due to recent ischemic event. It gives off 1 diagonal which is overall small. LEFT CIRCUMFLEX: Small vessel with diffuse 20%-30% disease. Mid portion has a 50% lesion and an overall small vessel. It gives off 1 distal obtuse marginal with no significant disease. RCA: Moderate vessel with what appears to be a dissection in the proximal portion. Distal to this, there are 2 stents, which are overall patent with 20% in-stent restenosis. LVEDP: 11. INTERVENTIONAL DATA: Vessel: Proximal RCA, lesion length 20, pre-LEW 3, post-LEW 3, post-stenosis 0. IMPRESSION: 1. Ventricular fibrillation arrest. 2. Inferior/posterior ST elevation myocardial infarction, most likely due to right coronary artery dissection, status post Synergy drug-eluting stent (3 x 20). 3. Significant spasm throughout the vessels, most likely due to a recent ischemia/ventricular fibrillation arrest. 4. Acute respiratory distress requiring intubation. 5. Encephalopathy. Bassam Coma Scale scale of 3. RECOMMENDATIONS: 1. Mr. Marrero presented with a V-fib arrest and was found to have an inferior/posterior ST elevation myocardial infarction. This is most likely due to what appears to be a RCA dissection and underwent PCI as above. 2. He also had significant spasm noted within the RCA during the procedure and this could also be a possible cause for his ST elevation myocardial infarction. His other vessels appear overall small and this may be spasm due to his recent ischemia from the ventricular fibrillation event. 3. He will be recommended aspirin and Brilinta therapy. For now, beta emi will be held due to bradycardia during hypothermic initiation. MAKSIM inhibitor therapy will be held due to his acute kidney injury. Statin therapy will be started and we will have to check his LFTs as during the event he may have elevation of these due to possible shock liver: 4. I have discussed with critical care; and as he was an hxs-tc-kdbxoise arrest with a GCS of 3, we will plan on starting him on hypothermia protocol. 5. We will check a 2-D echo to look at his overall left ventricular function, cardiac structure, and possible valvulopathies. 6. We will have his pacemaker interrogated to see what events led up to this actual event. Most likely he got ischemic causing him to go into ventricular fibrillation. 7. Hldp-xu-iicekki time was most likely not met due to the patient's critical nature of being intubated in the emergency room as well as the necessity of IVUS-ing the lesion as it was not an occluded vessel to determine possible dissection. 8. Greater than 45 minutes of critical care time was spent post-procedure discussing the patient with the emergency room, the patient's family, and critical care team. Thank you for allowing me to see Olivier Marrero. If there are any questions, please do not hesitate to call. DO CHRISTINA IvyP/yissel , 12:39 AM , 12:55 AM NELLIE
[2018-03-30 08:08] LABS: ABG Base Excess -7.8 mmol/L (-2-2); ABG PCO2 34 mmHg (38-42); ABG PO2 160 mmHG (61-120)
[2018-03-30] MEDS: Chlorhexidine 0.12% Oral Kit 15 ML UDC OROPHARYNG SCH ×2 (08:33→20:03)
--- NOTE | 2018-03-30 08:50 | P.PNCC ---
Subjective Subjective Remarks/Hospital Course: Hospital Course: Patient is a 63-year-old male who presents the emergency room via EMS for STEMI alert. As per EMS, patient was with a girlfriend and reported to her that he was not feeling well. He had a syncopal episode. Apparently, patient did not hit his head on the floor, he was lowered to the floor. Patient did lose pulses , bystanders started CPR. When EMS arrived on scene, patient was found to be in V. fib arrest, he was shocked once at 150 and return to pulses. Patient was found to have ST segment elevations in leads II, III, aVF with reciprocal changes. Patient presents the emergency room obtunded, patient unable to provide any HPI. Per ER documentation GCS was 3 following return of spontaneous circulation. Patient was intubated in ER and placed on mechanical ventilation. STEMI alert was called and patient was evaluated by Dr. 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 RCA stenting performed at site of dissection. Patient was started on Versed and fentanyl during cardiac catheterization as he appeared to be gagging and fighting the ventilator. Following procedure he was transferred to [facility] where I evaluated him following his arrival. I personally spoke with Dr. Kline and confirmed GCS 3 on her evaluation following patient's arrival to the ER. Decision was made to initiate hypothermia protocol. I spoke with patient's and son at bedside and they agreed to proceed with Quatro catheter placement and initiation of therapeutic hypothermia. According to patient's he was down for about 5 minutes before EMS arrival and being shocked. He was given bystander CPR by family immediately on going down. Subjective: 03/30: at target temperature. on low-dose vasopressors intermittently. uop marginal but adequate, likely due to hypothermia. trop increasing still, but no other evidence of coronary ischemia. Objective Vital Signs / I&O: Vital Signs 03/29/18 11:18 03/29/18 11:24 03/29/18 11:28 Temperature 36.5 C Pulse Rate 103 H 103 H 109 H Respiratory Rate 22 Blood Pressure 105/58 L 150/93 H Pulse Oximetry 100 100 99 03/29/18 13:11 03/29/18 13:26 03/29/18 13:41 Temperature 35.4 C L Pulse Rate 90 90 81 Respiratory Rate 16 16 16 Blood Pressure 127/81 105/70 126/76 Pulse Oximetry 99 99 99 03/29/18 13:56 03/29/18 14:00 03/29/18 14:30 Temperature 34 C L Pulse Rate 78 Respiratory Rate 16 16 Blood Pressure 115/73 143/86 H Pulse Oximetry 99 03/29/18 14:56 03/29/18 15:26 03/29/18 15:56 Temperature 34.2 C L 34.2 C L Pulse Rate 78 78 79 Respiratory Rate 16 16 16 Blood Pressure 126/76 149/90 H Pulse Oximetry 100 100 100 03/29/18 16:56 03/29/18 17:04 03/29/18 17:56 Temperature 33 C L 33 C L Pulse Rate 68 65 Respiratory Rate 16 16 16 Blood Pressure 163/97 H 154/92 H Pulse Oximetry 100 100 100 03/29/18 19:00 03/29/18 19:56 03/29/18 20:00 Temperature 33.0 C L 33.0 C L 33.0 C L Pulse Rate 66 62 62 Respiratory Rate 16 16 16 Blood Pressure 124/79 117/72 117/72 Pulse Oximetry 100 100 100 03/29/18 21:00 03/29/18 22:00 03/29/18 22:19 Temperature 33.0 C L 33.0 C L Pulse Rate 62 63 Respiratory Rate 16 16 16 Blood Pressure 118/72 134/78 Pulse Oximetry 100 100 100 03/29/18 23:00 03/30/18 00:00 03/30/18 00:59 Temperature 33.0 C L 33.0 C L Pulse Rate 62 61 Respiratory Rate 16 16 17 Blood Pressure 108/69 107/69 Pulse Oximetry 100 100 100 03/30/18 01:00 03/30/18 02:00 03/30/18 03:00 Temperature 33.0 C L 33.0 C L 33.0 C L Pulse Rate 59 L 60 60 Respiratory Rate 16 16 16 Blood Pressure 97/55 L 95/67 L 87/55 L Pulse Oximetry 100 100 100 03/30/18 04:00 03/30/18 04:18 03/30/18 05:00 Temperature 33.0 C L 33.0 C L Pulse Rate 62 66 Respiratory Rate 16 16 16 Blood Pressure 87/60 L 103/65 Pulse Oximetry 100 100 100 03/30/18 06:00 Temperature 33.0 C L Pulse Rate 60 Respiratory Rate 16 Blood Pressure 89/64 L Pulse Oximetry 100 Intake & Output 03/29/18 03/30/18 03/30/18 18:59 06:59 18:59 Intake Total 810 / 810 2350 / 2350 Output Total 600 / 600 400 / 400 Balance 210 / 210 1950 / 1950 Weight 77.111 kg 75.5 kg Intake: IV 2350 / 2350 Heparin/NS PF Inj 1,000 ML @ 0 10 / 10 mls/hr .ROUTE .STK-MED ONE Rx#: [id number] Nimbex Inj 100 MG In NS Inj 240 250 / 250 ML @ 3.3 MCG/KG/MIN 38.16 mls/ hr IV.CONT TITRATE PRN Rx#: [id number] Versed Inj 50 mg In 50 ml @ 2 100 / 100 MG/HR 2 mls/hr IV.CONT TITRATE PRN Rx#:[id number] NS Inj 2,000 ML @ 2000 mls/hr 1999 / 1999 IV.SIG .Q1H OMAR Rx#:[id number] Anesthesia Amount 800 / 800 Output: Urine Amount (Catheter) 600 / 600 400 / 400 Indwelling Temp Sensing 600 / 600 400 / 400 Catheter Other: Date of Last Bowel Movement 03/28/18 03/28/18 # Bowel Movements 0 Weight On Admission 73.5 kg Result Diagrams: 03/30/18 04:30 03/30/18 04:30 Objective Remarks: GENERAL: Middle-age male, lying in bed, intubated, sedated, paralyzed, critically ill HEENT: Normocephalic. Atraumatic. Pupils equal, round, reactive, conjugate. Mucous membranes are moist NECK: Trachea is midline. There is no JVD. CHEST: Equal chest rise. PRVC. FiO2 40%. CARDIOVASCULAR: Normal rate, regular rhythm. Sinus. ABDOMEN: Soft, nontender, nondistended. No guarding. MUSCULOSKELETAL: Pulses 2+. No peripheral edema. NEUROLOGICAL: RASS -5. Deeply sedated and paralyzed to prevent shivering. Pupils equal and reactive. Assessment and Plan - Assessment and Plan Plan: Assessment: 63-year-old male status post out of hospital V. fib cardiac arrest with associated cardiogenic shock and hypoxic ischemic encephalopathy. Continue with therapeutic hypothermia protocol. We will start rewarming at 1700 tonight. Remains very critically ill. Plan by systems: Neurologic: Hypoxic ischemic encephalopathy Frequent neurochecks Midazolam infusion for goal RASS -5 Nimbex drip to prevent shivering Avoid long-acting sedatives Continue therapeutic hypothermia Rewarming at 1700 tonight Respiratory: Acute hypoxic and hypercarbic respiratory failure Vent bundle Head of bed elevated Nebs No SBT until neurologic status improves Wean FiO2 for goal SPO2 greater than 90% Cardiovascular: Out of hospital ventricular fibrillation cardiac arrest Cardiogenic shock ST elevation myocardial infarction Hyperlipidemia Status post RCA stent 03/29 Trend troponins Therapeutic hypothermia Low-dose vasopressors for goal map greater than 65 Continue Brilinta Continue statin 2D echo Renal: Acute kidney injury Secondary to cardiogenic shock from out of hospital cardiac arrest Continue Tellez Trend creatinine -- Strict I/Os FEN/GI: Tube feeds ICU electrolyte protocol Daily BMP, magnesium, phosphorus Maintenance IV fluids Heme/ID: Daily CBC Endocrine: Hyperglycemia of critical illness -- SSI Prophylaxis: GI Prophylaxis Pepcid DVT Prophylaxis -- SCDs Subcu heparin Lines: Quatro Cool catheter 03/29 Tellez 03/29 Dispo: Remain in the ICU. Very critically ill. This patient remains critically ill with one or more organ systems which are or may become a threat to life. I have spent in excess of 41 minutes discontinuously in the care and management of this patient. This time is exclusive of procedures, and includes, but is not limited to, evaluation of the patient, review of the medical record, discussions with family, consultants, nursing staff, or respiratory therapy, and documentation in the medical record.
[2018-03-30] MEDS: Norepinephrine Inj 4 MG in Sodium Chlor 0.9% Inj 246 ML IV.SIG PRN (09:30)
[2018-03-30] MEDS: Docusate Sodium Liq 100 MG/10 ML UDC PO SCH ×2 (09:40→21:09)
[2018-03-30] MEDS: Famotidine PF Inj 20 MG/2 ML Vial IV.PUSH SCH ×2 (09:41→21:10)
[2018-03-30] MEDS: Metoprolol Tartrate 25 MG Tablet PO SCH ×2 (09:41→21:09)
--- NOTE | 2018-03-30 12:27 | P.CONPAL ---
Consult Service: Palliative Care Requesting Physician: Filiberto Barkley Reason for Consult: a. To assist with evaluation and management of symptoms including: pain, altered mental status b. To assist medical decision maker(s) with: better understanding of current medical conditions; weighing benefits/burdens of medical treatment options; making medical treatment decisions. Primary Care Provider: UNKNOWN History of Present Illness History of Present Illness: Mr. Marrero is a 63-year-old male who presented to [place] ED on 03/29/2018 status V. fib arrest. The patient was with his when he told her he was not feeling well with subsequent syncopal episode. He was lowered to the floor. Patient became pulseless, and bystanders started CPR. Per EMS report, patient was found to be in V. fib arrest; he was shocked once with return of circulation. Patient's GCS was 3 following ROSC. He was intubated in the ED and placed on mechanical ventilation. Diagnostic data: * Pulse, 103, respirations 22, BP 105/53, oxygen saturation 100% on nonrebreather, Cord temp 97.7 * W BC: 12.2, hemoglobin 13.7, hematocrit 40.7, platelets 243, neutrophils 60.0% * PT: 9.9, INR 1.0, APTT 24.0 * Sodium 127, potassium 4.3, chloride 96, calcium 9.1, magnesium 2.0 * BUN: 13, creatinine 1.8 * Total creatine kinase: 127 * CK-MB: 2.7 * Troponin: 0.29 * BNP: 220 * Urinalysis WNL * Toxicology screening: + benzodiazepines * Chest x-ray showed no evidence of pneumothorax; no acute pulmonary infiltrates. STEMI alert was called and patient was evaluated by Dr. 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 RCA stenting performed at site of dissection. Patient was transferred to the [facility] following the procedure. According to the patient's , the patient was down for about 5 minutes before EMS arrived and being shocked. Bystanders started CPR immediately. After Dr. Flores spoke with the patient's family/friends, a decision was made to proceed with Quadtro catheter placement and initiation of therapeutic hypothermia. Echocardiogram showing moderately reduced left ventricular systolic function with an estimated EF of 40-45%; diffuse global hypokinesis; Doppler parameters consistent with grade 1 diastolic dysfunction; trace mitral valve regurgitation. Palliative Care was consulted to assist with symptom management and to discuss with the family the benefits and burdens of his current illnesses and the options regarding future care. Patient remains intubated on mechanical vent. On fentanyl, midazolam and cisatracurium drip. Will begin rewarming patient sometime this evening. Palliative care will continue to follow this patient throughout his hospitalization to establish trust, assist with symptom management and clarification of medical treatment goals. Patient's 4 adult sons will be arriving today or tomorrow. Possible palliative care meeting on 04/03/2018. Function/Cognitive Trajectory: Patient had a previous [place] in April,. Patient's states he had recovered fully. Patient was active and independent with all ADLs prior to this acute event. Review of Systems unobtainable due to endotracheal tube PMFSH - History History Provided By: Significant Other - Medical History Medical History: Medical History (Last Updated 03/30/18 @ 12:13 by FOZIA Copeland) Hyperlipidemia (Acute) Hypertension (Acute) Asthma Coronary artery disease - Surgical History Surgical History: Surgical History (Last Updated 03/30/18 @ 12:13 by FOZIA Copeland) History of coronary artery stent placement (Acute) History of permanent cardiac pacemaker placement - Family History Family History: Family History (Last Updated 03/30/18 @ 15:21 by FOZIA Copeland) Other No family history of cardiac disease - Social History I have reviewed the patient's Social History: Yes - Tobacco History Second Hand Smoke Exposure: Yes Tobacco Use In Past 30 Days: Yes Smoking Status: Current every day smoker (Patient smokes approximately 5 cigarettes daily) Tobacco Type: Cigarettes, E-Cigarettes - Alcohol History How Often Do You Have a Drink Containing Alcohol: 2 to 3 times a week - Substance Use History Substance History: No History of Abuse - Travel History Recent Travel in the [place] Within the Last 8 Weeks: No Recent Travel Out of the Country Within the Last 8 Weeks: No - Immunization History Tetanus Immunization: Unable to Assess Medications and Allergies Active Medications: Active Medications Acetaminophen (Tylenol Liq) 650 mg NG/OG Q6H PRN PRN Reason: SHIVERING Acetaminophen (Tylenol Liq) 650 mg PO Q6H PRN PRN Reason: PAIN SCALE 1-5 Albuterol (Duoneb Neb (Prn)) 1 ampul NEB Q4HR NEB PRN PRN Reason: WHEEZING Artificial Tears (Lacrilube Opth Oint) 1 applicatio EACH EYE Q4H PRN PRN Reason: WHILE ON NMB Aspirin (Aspirin Chew) 81 mg PO DAILY [facility] Last Admin: 03/30/18 09:40 Dose: 81 mg Atorvastatin Calcium (Lipitor) 80 mg PO HS [facility] Last Admin: 03/29/18 20:32 Dose: Not Given Bisacodyl (Dulcolax Ec) 10 mg PO DAILY PRN PRN Reason: CONSTIPATION Chlorhexidine Gluconate (Peridex 0.12% Oral Kit) 15 ml OROPHARYNG BID@0800, 2000 [facility] Last Admin: 03/30/18 08:33 Dose: 15 ml Docusate Sodium (Colace Liq) 100 mg PO BID [facility] Last Admin: 03/30/18 09:40 Dose: 100 mg Enoxaparin Sodium (Lovenox Inj) 40 mg SQ Q24H MOAR Famotidine (Pepcid Pf Inj) 20 mg IV.PUSH Q12HR [facility] Last Admin: 03/30/18 09:41 Dose: 20 mg Midazolam HCl (Versed Inj) 50 mg in 50 mls @ 2 mls/hr IV.CONT TITRATE PRN; Protocol PRN Reason: Per Protocol Last Admin: 03/30/18 06:13 Dose: 6 mg/hr, 6 mls/hr Fentanyl (Fentanyl 10 Mcg/Ml Premix Drip) 2,500 mcg in 250 mls @ 5 mls/hr IV.SIG TITRATE PRN; Protocol PRN Reason: Per Protocol Last Titration: 03/29/18 20:00 Dose: 50 mcg/hr, 5 mls/hr Cisatracurium Besylate 100 mg/ (Sodium Chloride) 250 mls @ 38.16 mls/hr IV.CONT TITRATE PRN; Protocol PRN Reason: Per Protocol Last Admin: 03/30/18 06:12 Dose: 2 mcg/kg/min, 23.13 mls/hr Norepinephrine Bitartrate 4 mg (/ Sodium Chloride) 250 mls @ 1.87 mls/hr IV.SIG TITRATE PRN; Protocol PRN Reason: Per Protocol Last Admin: 03/30/18 09:30 Dose: 4 mcg/min, 15 mls/hr Metoclopramide HCl (Reglan Inj) 10 mg IV.PUSH Q6H PRN PRN Reason: NAUSEA OR VOMITING Metoprolol Tartrate (Lopressor) 12.5 mg PO BID [facility] Last Admin: 03/30/18 09:41 Dose: Not Given Miscellaneous Information (Misc Mix All Iv Meds In Ns) 1 each MISCELLANE UNSCH PRN PRN Reason: SEE LABEL COMMENTS Miscellaneous Medication () 1 each OROPHARYNG 0000,0400,1200,1600 [facility] Last Admin: 03/30/18 03:58 Dose: 1 each Ondansetron HCl (Zofran Inj) 4 mg IV.PUSH Q6H PRN PRN Reason: NAUSEA OR VOMITING Sodium Chloride (Ns Flush) 2 ml IV.FLUSH BID [facility] Last Admin: 03/30/18 09:41 Dose: 2 ml Sodium Chloride (Ns Flush) 2 ml IV.FLUSH PRN PRN PRN Reason: FLUSH AFTER USING IV ACCESS Terbutaline Sulfate (Brethine Inj) 1 mg SQ UNSCH PRN PRN Reason: For Extravasation Ticagrelor (Brilinta) 90 mg PO BID [facility] Last Admin: 03/30/18 09:40 Dose: 90 mg Allergies Allergy/AdvReac Type Severity Reaction Status Date / Time No Allergy Information Allergy Verified 03/29/18 11:38 Available Home Medications Medication Instructions Recorded Confirmed Type Unable to Obtain Home Meds 03/29/18 03/29/18 History Advance Directives Advance Directives Date on File: 03/30/18 Living Will: Yes (Completed 04/17/1997) Healthcare Surrogate: Yes (Completed 04/17/1997) Health Care Surrogate Name and Number: Neris Marrero () [phone] Documented care wishes: Patient completed a "declaration of a desire for a natural " on 1996. Copies of the patient's written advanced directives were placed in his paper chart. Copies were faxed to HIM to be scanned into the patient's EMR. Today's verbally stated goals: Patient is currently sedated and intubated on mechanical ventilation. Due to his level of responsiveness, he is unable to participate in establishing medical treatment goals. Family/friends goals: Goals are aggressive at this time. Therapeutic hypothermia initiated on 2017. Ethical and Legal Issues: No known ethical or legal issues impacting care at this time. Physical Exam Vital Signs: Vital Signs - 24 hr 03/29/18 13:11 03/29/18 13:26 03/29/18 13:41 Temperature 95.7 F L Pulse Rate 90 90 81 Respiratory Rate 16 16 16 Blood Pressure 127/81 105/70 126/76 Pulse Oximetry 99 99 99 03/29/18 13:56 03/29/18 14:00 03/29/18 14:30 Temperature 93.2 F L Pulse Rate 78 Respiratory Rate 16 16 Blood Pressure 115/73 143/86 H Pulse Oximetry 99 03/29/18 14:56 03/29/18 15:26 03/29/18 15:56 Temperature 93.6 F L 93.6 F L Pulse Rate 78 78 79 Respiratory Rate 16 16 16 Blood Pressure 126/76 149/90 H Pulse Oximetry 100 100 100 03/29/18 16:56 03/29/18 17:04 03/29/18 17:56 Temperature 91.4 F L 91.4 F L Pulse Rate 68 65 Respiratory Rate 16 16 16 Blood Pressure 163/97 H 154/92 H Pulse Oximetry 100 100 100 03/29/18 19:00 03/29/18 19:56 03/29/18 20:00 Temperature 91.4 F L 91.4 F L 91.4 F L Pulse Rate 66 62 62 Respiratory Rate 16 16 16 Blood Pressure 124/79 117/72 117/72 Pulse Oximetry 100 100 100 03/29/18 21:00 03/29/18 22:00 03/29/18 22:19 Temperature 91.4 F L 91.4 F L Pulse Rate 62 63 Respiratory Rate 16 16 16 Blood Pressure 118/72 134/78 Pulse Oximetry 100 100 100 03/29/18 23:00 03/30/18 00:00 03/30/18 00:59 Temperature 91.4 F L 91.4 F L Pulse Rate 62 61 Respiratory Rate 16 16 17 Blood Pressure 108/69 107/69 Pulse Oximetry 100 100 100 03/30/18 01:00 03/30/18 02:00 03/30/18 03:00 Temperature 91.4 F L 91.4 F L 91.4 F L Pulse Rate 59 L 60 60 Respiratory Rate 16 16 16 Blood Pressure 97/55 L 95/67 L 87/55 L Pulse Oximetry 100 100 100 03/30/18 04:00 03/30/18 04:18 03/30/18 05:00 Temperature 91.4 F L 91.4 F L Pulse Rate 62 66 Respiratory Rate 16 16 16 Blood Pressure 87/60 L 103/65 Pulse Oximetry 100 100 100 03/30/18 06:00 03/30/18 08:58 03/30/18 11:22 Temperature 91.4 F L Pulse Rate 60 Respiratory Rate 16 16 16 Blood Pressure 89/64 L Pulse Oximetry 100 100 100 I&O: Intake & Output 03/28/18 03/29/18 03/30/18 03/31/18 06:59 06:59 06:59 06:59 Intake Total 3160 / 3160 Output Total 1000 / 1000 Balance 2160 / 2160 Weight 75.5 kg Physical Exam: CONSTITUTIONAL/GENERAL: This is a middle-aged male patient who is currently sedated and paralyzed; intubated on mechanical ventilation; therapeutic hypothermia in progress. TUBES/LINES/DRAINS: PIV x 2; left femoral central line, Tellez catheter, OGT, ETT SKIN: Abrasion noted on right lower extremity. Skin is cool to touch. Not diaphoretic. HEAD: Atraumatic. Normocephalic. EYES: Pupils equal and round and reactive. No scleral icterus. No injection or drainage. Fundi not examined. ENT: Hearing grossly normal. Nose without bleeding or purulent drainage. Mucous membranes moist. NECK: Trachea midline. Supple, nontender. No palpable thyroid enlargement or nodularity. CARDIOVASCULAR: Regular rate and rhythm. No JVD. P RESPIRATORY/CHEST: Intubated on mechanical vent. PRBC. FiO2 40%. GASTROINTESTINAL: Abdomen soft, non-tender, nondistended. No guarding. GENITOURINARY: Without palpable bladder distension. Tellez catheter in place. MUSCULOSKELETAL: Extremities without clubbing, cyanosis, or edema. No mottling or clubbing. LYMPHATICS: No palpable cervical or supraclavicular adenopathy. NEUROLOGICAL: Deeply sedated and paralyzed to prevent shivering. PSYCHIATRIC: Unable to assess given level of responsiveness. Diagnostic Tests Laboratory: Laboratory Results - last 72 hr 03/29/18 03/29/18 03/29/18 11:20 11:20 11:20 WBC 12.2 H RBC 4.14 L Hgb 13.7 POC Hgb (Calc) Hct 40.7 POC Hct MCV 98.3 MCH 33.1 MCHC 33.7 RDW 14.6 Plt Count 243 MPV 7.8 Neut % (Auto) 60.0 Lymph % (Auto) 32.3 Tripp % (Auto) 4.4 Eos % (Auto) 2.8 Baso % (Auto) 0.5 Neut # (Auto) 7.3 Lymph # (Auto) 3.9 Tripp # (Auto) 0.5 Eos # (Auto) 0.3 Baso # (Auto) 0.1 WBC Differential . Differential Comment Auto diff final PT 9.9 INR 1.0 APTT 24.0 L Puncture Site Patient Temperature O2 Saturation ABG pH ABG pCO2 ABG pO2 ABG HCO3 ABG O2 Content ABG Base Excess ABG Methemoglobin Oscar Test Hemoglobin Carboxyhemoglobin O2 Delivery Device Vent Setting Inspired O2 Critical Value POC Sodium Sodium POC Potassium Potassium POC Chloride Chloride Carbon Dioxide Anion Gap POC BUN BUN Creatinine POC Creatinine Estimated GFR POC Glucose Random Glucose Lactic Acid Calcium 9.1 Prot Corrected Calcium Phosphorus Magnesium 2.0 Total Bilirubin Direct Bilirubin Indirect Bilirubin AST ALT Alkaline Phosphatase Total Creatine Kinase 127 CK-MB (CK-2) 2.7 Troponin I 0.29 H B-Natriuretic Peptide Total Protein Albumin Urine Color Urine Clarity Urine pH Ur Specific [place] Urine Protein Urine Glucose (UA) Urine Ketones Urine Occult Blood Urine Nitrate Urine Bilirubin Urine Urobilinogen Ur Leukocyte Esterase Urine RBC Urine WBC Ur Squamous Epith Cells Urine Mucus Ur Microscopic Review Urine Opiates Screen Ur Barbiturates Screen Ur Amphetamines Screen U Benzodiazepines Scrn Urine Cocaine Screen U Cannabinoids Screen Blood Type Blood Type Recheck Antibody Screen 03/29/18 03/29/18 03/29/18 11:20 11:20 13:52 WBC RBC Hgb POC Hgb (Calc) 13.6 Hct POC Hct 40.0 MCV MCH MCHC RDW Plt Count MPV Neut % (Auto) Lymph % (Auto) Tripp % (Auto) Eos % (Auto) Baso % (Auto) Neut # (Auto) Lymph # (Auto) Tripp # (Auto) Eos # (Auto) Baso # (Auto) WBC Differential Differential Comment PT INR APTT Puncture Site Right radial Patient Temperature 98.6 O2 Saturation 96 ABG pH 7.32 L ABG pCO2 34 L ABG pO2 160 H ABG HCO3 17 L ABG O2 Content 18.1 ABG Base Excess -7.8 L ABG Methemoglobin 1.6 Oscar Test Present Hemoglobin 13.2 Carboxyhemoglobin 0.6 O2 Delivery Device Ventilator Vent Setting [id number] Inspired O2 50 Critical Value No POC Sodium 127 L Sodium POC Potassium 4.3 Potassium POC Chloride 96 L Chloride Carbon Dioxide Anion Gap POC BUN 13 BUN Creatinine POC Creatinine 1.8 H Estimated GFR POC Glucose 154 H Random Glucose Lactic Acid Calcium Prot Corrected Calcium Phosphorus Magnesium Total Bilirubin Direct Bilirubin Indirect Bilirubin AST ALT Alkaline Phosphatase Total Creatine Kinase CK-MB (CK-2) Troponin I B-Natriuretic Peptide 220 H Total Protein Albumin Urine Color Urine Clarity Urine pH Ur Specific [place] Urine Protein Urine Glucose (UA) Urine Ketones Urine Occult Blood Urine Nitrate Urine Bilirubin Urine Urobilinogen Ur Leukocyte Esterase Urine RBC Urine WBC Ur Squamous Epith Cells Urine Mucus Ur Microscopic Review Urine Opiates Screen Ur Barbiturates Screen Ur Amphetamines Screen U Benzodiazepines Scrn Urine Cocaine Screen U Cannabinoids Screen Blood Type Blood Type Recheck Antibody Screen 03/29/18 03/29/18 03/29/18 15:06 15:20 15:20 WBC RBC Hgb POC Hgb (Calc) Hct POC Hct MCV MCH MCHC RDW Plt Count MPV Neut % (Auto) Lymph % (Auto) Tripp % (Auto) Eos % (Auto) Baso % (Auto) Neut # (Auto) Lymph # (Auto) Tripp # (Auto) Eos # (Auto) Baso # (Auto) WBC Differential Differential Comment PT INR APTT Puncture Site Patient Temperature O2 Saturation ABG pH ABG pCO2 ABG pO2 ABG HCO3 ABG O2 Content ABG Base Excess ABG Methemoglobin Oscar Test Hemoglobin Carboxyhemoglobin O2 Delivery Device Vent Setting Inspired O2 Critical Value POC Sodium Sodium POC Potassium Potassium POC Chloride Chloride Carbon Dioxide Anion Gap POC BUN BUN Creatinine POC Creatinine Estimated GFR POC Glucose Random Glucose Lactic Acid 0.7 Calcium Prot Corrected Calcium Phosphorus 3.2 Magnesium 1.9 Total Bilirubin 0.7 Direct Bilirubin 0.3 H Indirect Bilirubin 0.4 AST 39 H ALT 19 Alkaline Phosphatase 98 Total Creatine Kinase CK-MB (CK-2) Troponin I B-Natriuretic Peptide Total Protein 5.5 L Albumin 2.8 L Urine Color Urine Clarity Urine pH Ur Specific [place] Urine Protein Urine Glucose (UA) Urine Ketones Urine Occult Blood Urine Nitrate Urine Bilirubin Urine Urobilinogen Ur Leukocyte Esterase Urine RBC Urine WBC Ur Squamous Epith Cells Urine Mucus Ur Microscopic Review Urine Opiates Screen Neg Ur Barbiturates Screen Neg Ur Amphetamines Screen Neg U Benzodiazepines Scrn Pos H Urine Cocaine Screen Neg U Cannabinoids Screen Neg Blood Type Blood Type Recheck Antibody Screen 03/29/18 03/29/18 03/29/18 15:20 15:20 17:35 WBC 12.8 H RBC 3.68 L Hgb 12.2 L POC Hgb (Calc) Hct 35.6 L POC Hct MCV 96.8 MCH 33.3 MCHC 34.4 RDW 14.5 Plt Count 185 MPV 7.4 Neut % (Auto) Lymph % (Auto) Tripp % (Auto) Eos % (Auto) Baso % (Auto) Neut # (Auto) Lymph # (Auto) Tripp # (Auto) Eos # (Auto) Baso # (Auto) WBC Differential Differential Comment PT INR APTT Puncture Site Patient Temperature O2 Saturation ABG pH ABG pCO2 ABG pO2 ABG HCO3 ABG O2 Content ABG Base Excess ABG Methemoglobin Oscar Test Hemoglobin Carboxyhemoglobin O2 Delivery Device Vent Setting Inspired O2 Critical Value POC Sodium Sodium POC Potassium Potassium POC Chloride Chloride Carbon Dioxide Anion Gap POC BUN BUN Creatinine POC Creatinine Estimated GFR POC Glucose Random Glucose Lactic Acid Calcium Prot Corrected Calcium Phosphorus Magnesium Total Bilirubin Cancelled Direct Bilirubin Cancelled Indirect Bilirubin Cancelled AST Cancelled ALT Cancelled Alkaline Phosphatase Cancelled Total Creatine Kinase CK-MB (CK-2) Troponin I B-Natriuretic Peptide Total Protein Cancelled Albumin Cancelled Urine Color Urine Clarity Urine pH Ur Specific [place] Urine Protein Urine Glucose (UA) Urine Ketones Urine Occult Blood Urine Nitrate Urine Bilirubin Urine Urobilinogen Ur Leukocyte Esterase Urine RBC Urine WBC Ur Squamous Epith Cells Urine Mucus Ur Microscopic Review Urine Opiates Screen Ur Barbiturates Screen Ur Amphetamines Screen U Benzodiazepines Scrn Urine Cocaine Screen U Cannabinoids Screen Blood Type O Positive Blood Type Recheck Required Antibody Screen Negative 03/29/18 03/29/18 03/29/18 17:35 17:50 20:08 WBC RBC Hgb POC Hgb (Calc) Hct POC Hct MCV MCH MCHC RDW Plt Count MPV Neut % (Auto) Lymph % (Auto) Tripp % (Auto) Eos % (Auto) Baso % (Auto) Neut # (Auto) Lymph # (Auto) Tripp # (Auto) Eos # (Auto) Baso # (Auto) WBC Differential Differential Comment PT INR APTT 37.8 H D Puncture Site Patient Temperature O2 Saturation ABG pH ABG pCO2 ABG pO2 ABG HCO3 ABG O2 Content ABG Base Excess ABG Methemoglobin Oscar Test Hemoglobin Carboxyhemoglobin O2 Delivery Device Vent Setting Inspired O2 Critical Value POC Sodium Sodium POC Potassium Potassium POC Chloride Chloride Carbon Dioxide Anion Gap POC BUN BUN Creatinine POC Creatinine Estimated GFR POC Glucose Random Glucose Lactic Acid Calcium Prot Corrected Calcium Phosphorus Magnesium Total Bilirubin Direct Bilirubin Indirect Bilirubin AST ALT Alkaline Phosphatase Total Creatine Kinase CK-MB (CK-2) Troponin I 9.96 H* B-Natriuretic Peptide Total Protein Albumin Urine Color Straw Urine Clarity Clear Urine pH 5.0 Ur Specific [place] 1.020 Urine Protein Negative Urine Glucose (UA) Negative Urine Ketones 20 Urine Occult Blood Small H Urine Nitrate Negative Urine Bilirubin Negative Urine Urobilinogen Less than 2 Ur Leukocyte Esterase Negative Urine RBC Less than 1 Urine WBC 1 Ur Squamous Epith Cells <1 Urine Mucus Few H Ur Microscopic Review Not Reportable Urine Opiates Screen Ur Barbiturates Screen Ur Amphetamines Screen U Benzodiazepines Scrn Urine Cocaine Screen U Cannabinoids Screen Blood Type Blood Type Recheck Antibody Screen 03/30/18 03/30/18 04:30 04:30 WBC 9.5 RBC 3.52 L Hgb 11.6 L POC Hgb (Calc) Hct 33.9 L POC Hct MCV 96.5 MCH 33.0 MCHC 34.2 RDW 14.9 Plt Count 170 MPV 7.5 Neut % (Auto) 85.4 H Lymph % (Auto) 8.9 L Tripp % (Auto) 5.3 Eos % (Auto) 0.2 Baso % (Auto) 0.2 Neut # (Auto) 8.1 H Lymph # (Auto) 0.8 L Tripp # (Auto) 0.5 Eos # (Auto) 0.0 Baso # (Auto) 0.0 WBC Differential . Differential Comment Auto diff final PT INR APTT Puncture Site Patient Temperature O2 Saturation ABG pH ABG pCO2 ABG pO2 ABG HCO3 ABG O2 Content ABG Base Excess ABG Methemoglobin Oscar Test Hemoglobin Carboxyhemoglobin O2 Delivery Device Vent Setting Inspired O2 Critical Value POC Sodium Sodium 134 L POC Potassium Potassium 4.6 POC Chloride Chloride 102 Carbon Dioxide 20.9 L Anion Gap 11 POC BUN BUN 16 Creatinine 1.25 POC Creatinine Estimated GFR 58 L POC Glucose Random Glucose 78 Lactic Acid Calcium 7.3 L* D Prot Corrected Calcium 8.1 L Phosphorus Magnesium Total Bilirubin 0.5 Direct Bilirubin 0.2 Indirect Bilirubin 0.3 AST 54 H ALT 22 Alkaline Phosphatase 93 Total Creatine Kinase CK-MB (CK-2) Troponin I 13.30 H* B-Natriuretic Peptide Total Protein 5.6 L Albumin 2.7 L Urine Color Urine Clarity Urine pH Ur Specific [place] Urine Protein Urine Glucose (UA) Urine Ketones Urine Occult Blood Urine Nitrate Urine Bilirubin Urine Urobilinogen Ur Leukocyte Esterase Urine RBC Urine WBC Ur Squamous Epith Cells Urine Mucus Ur Microscopic Review Urine Opiates Screen Ur Barbiturates Screen Ur Amphetamines Screen U Benzodiazepines Scrn Urine Cocaine Screen U Cannabinoids Screen Blood Type Blood Type Recheck Antibody Screen Result Diagrams: 03/30/18 04:30 03/30/18 04:30 Imaging: Chest X-Ray 03/29/18 11:24 CONCLUSION: 1. The endotracheal tube and NG tube are in good position. 2. No evidence of pneumothorax. 3. No acute pulmonary infiltrates. Procedures: 03/29/2018: Endotracheal intubation 03/29/2018: Cardiac catheterization 03/29/2018: Left femoral vein central line/cooling catheter placement Patient/Family Conference Present at Family Conference: Met with patient's at bedside Family Conference Location: Bedside Issues Discussed: * Palliative care role, purpose, approach * Additional medical, psychosocial, and spiritual history * Patients general health, functional status, and cognitive changes in the months leading up to the current hospitalization * Patient/family understanding of the current medical problems * Patient/family understanding of prognosis * Patients goals of care as best understood from advance directives and/or conversations and/or values * Current medical treatment options and benefits/burdens of those options * Likely scenarios comparing ongoing aggressive care with a transition to comfort measures only * Questions answered to the best of my ability * Palliative care contact information provided Assessment and Plan - Disease Oriented Problem List (1) Acute respiratory failure (2) Hyperlipidemia (3) History of permanent cardiac pacemaker placement (4) ST elevation myocardial infarction (STEMI) (5) Cardiac arrest with ventricular fibrillation Pertinent Non-Medical Issues: Psychosocial: Patient is originally from [place]. He has been to his , Neris, for approximately 30 years. They have 4 adult sons and at least one grandson. 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 Spiritual: Confucianism duane. Patient's tells me they have a very strong duane and believe in miracles. [place] visits were declined by the who states that they have their own psychological aide will likely visit Legal: Healthcare surrogate designation form and living will were completed on 04/17/1997. Patient's is designated as the primary healthcare surrogate decision-maker. Ethical issues impacting care: No known ethical issues impacting care at this time. Important Contacts: Neris Marrero, : [phone] JING Marrero, son: [phone] Prognosis: Patient is a 63-year-old male status post out of hospital cardiac arrest on . Therapeutic hypothermia was initiated. Approximately 1% of patients who suffer an out of hospital cardiac arrest survive. Code Status: Full Code Plan: * FULL CODE * Decision making: Patient has designated his , Neris Marrero, as his primary healthcare surrogate decision-maker. * Patient completed a "declaration of a desire for a natural " on 1996. Copies of the patient's written advanced directives were placed in his paper chart. Copies were faxed to HIM to be scanned into the patient's EMR. * AGGRESSIVE GOALS * Discussed patient with Dr. Best and RN, Ion. * Palliative care contact information was provided to the patient's , Neris. * Patient has 4 adult children who will likely be arriving in [place] sometime tomorrow 03/31/2018. Patient's is aware that her is critically ill. She states they have a strong duane and believe in miracles. There will be no changes in medical treatment goals at this time. Possible meeting with palliative care on 04/03/2018 * Symptom management: Pain: Patient is currently sedated on fentanyl and versed drips, showing no signs or symptoms of pain. Possible contributing factors include recent CPR, intubation, invasive procedures, immobility etc. We will continue to monitor; no recommendations at this time Altered mental status: Concern for anoxic brain injury status post out of hospital V. fib arrest. According to the patient's , the patient was down for about 5 minutes before EMS arrived and being shocked. Bystanders started CPR immediately. After Dr. Flores spoke with the patient's family/friends, a decision was made to proceed with Quadtro catheter placement and initiation of therapeutic hypothermia. Will begin rewarming this evening. * Palliative care will continue to follow this patient throughout his hospitalization to establish trust, assist with symptom management and clarification of medical treatment goals. Appreciation Thank you for the opportunity to participate in the care of Olivier Marrero. Attestation Attestation: To help prompt me to consider important information that might be impacting today's encounter and assessment, information from prior notes written by myself or my colleagues may have been "brought forward" into today's note. My signature on this note, however, is an attestation that I personally performed the exam, history, and/or decision-making noted today, and, unless otherwise indicated, the interactions with patient, family, and staff as well as the review of records all occurred today. I also attest that the listed assessment and stated plan reflect my best clinical judgment today based on the combination of historical information, prior notes, and today's exam/ interactions. When time spent is documented, it refers only to time spent today by the signer, or if indicated, combined time spent today by collaborating physician/nurse practitioner.
--- NOTE | 2018-03-30 12:53 | ECG ---
Date Performed: 03/30/2018 Time Performed: 06:28:10 PTAGE: 63 years EKG: Sinus bradycardia Lead(s) unsuitable for analysis: V2 Prolonged QT interval Inferior infarc t - age undetermined Lateral ST-T changes may be due to myocardial ischemia Inferior ST elevation wit h reciprocal changes has improved significantly since prior tracing Abnormal ECG PREVIOUS TRACING : 03/29/2018 11.19 DOCTOR: Osvaldo Walter Interpretating Date/Time 03/30/2018 12:52:07
--- NOTE | 2018-03-30 12:53 | ECG ---
Date Performed: 03/29/2018 Time Performed: 11:19:50 PTAGE: 63 years EKG: SINUS TACHYCARDIA WITH FIRST DEGREE AV BLOCK INFERIOR MYOCARDIAL INFARCTION ACUTE ID INTERPRETATION BASED ON A DEFAULT AGE OF 40 YEARS Clinical correlation urgently recommended NO PREVIOUS TRACING DOCTOR: Osvaldo Walter Interpretating Date/Time 03/30/2018 12:51:25
[2018-03-30 21:52] LABS: Calcium 7.5 mg/dL (8.5-10.1); Carbon Dioxide 19.8 meq/L (21.0-32.0); Magnesium 1.8 mg/dL (1.5-2.5); Potassium 4.6 meq/L (3.5-5.1)
--- NOTE | 2018-03-30 22:57 | P.PNCA ---
Subjective Interval history: At goal, plan for rewarming today at 1700 Minimal bleeding at groin sites Medications and Allergies Active Medications: Active Medications Acetaminophen (Tylenol Liq) 650 mg NG/OG Q6H PRN PRN Reason: SHIVERING Acetaminophen (Tylenol Liq) 650 mg PO Q6H PRN PRN Reason: PAIN SCALE 1-5 Albuterol (Duoneb Neb (Prn)) 1 ampul NEB Q4HR NEB PRN PRN Reason: WHEEZING Artificial Tears (Lacrilube Opth Oint) 1 applicatio EACH EYE Q4H PRN PRN Reason: WHILE ON NMB Aspirin (Aspirin Chew) 81 mg PO DAILY [facility] Last Admin: 03/30/18 09:40 Dose: 81 mg Atorvastatin Calcium (Lipitor) 80 mg PO HS [facility] Last Admin: 03/30/18 21:08 Dose: 80 mg Bisacodyl (Dulcolax Ec) 10 mg PO DAILY PRN PRN Reason: CONSTIPATION Chlorhexidine Gluconate (Peridex 0.12% Oral Kit) 15 ml OROPHARYNG BID@0800, 2000 [facility] Last Admin: 03/30/18 20:03 Dose: 15 ml Docusate Sodium (Colace Liq) 100 mg PO BID [facility] Last Admin: 03/30/18 21:09 Dose: 100 mg Enoxaparin Sodium (Lovenox Inj) 40 mg SQ Q24H [facility] Famotidine (Pepcid Pf Inj) 20 mg IV.PUSH Q12HR [facility] Last Admin: 03/30/18 21:10 Dose: 20 mg Midazolam HCl (Versed Inj) 50 mg in 50 mls @ 2 mls/hr IV.CONT TITRATE PRN; Protocol PRN Reason: Per Protocol Last Titration: 03/30/18 19:00 Dose: 6 mg/hr, 6 mls/hr Fentanyl (Fentanyl 10 Mcg/Ml Premix Drip) 2,500 mcg in 250 mls @ 5 mls/hr IV.SIG TITRATE PRN; Protocol PRN Reason: Per Protocol Last Titration: 03/30/18 19:00 Dose: 50 mcg/hr, 5 mls/hr Cisatracurium Besylate 100 mg/ (Sodium Chloride) 250 mls @ 38.16 mls/hr IV.CONT TITRATE PRN; Protocol PRN Reason: Per Protocol Last Titration: 03/30/18 19:00 Dose: 2 mcg/kg/min, 23.13 mls/hr Norepinephrine Bitartrate 4 mg (/ Sodium Chloride) 250 mls @ 1.87 mls/hr IV.SIG TITRATE PRN; Protocol PRN Reason: Per Protocol Last Titration: 03/30/18 19:00 Dose: 4 mcg/min, 15 mls/hr Metoclopramide HCl (Reglan Inj) 10 mg IV.PUSH Q6H PRN PRN Reason: NAUSEA OR VOMITING Metoprolol Tartrate (Lopressor) 12.5 mg PO BID [facility] Last Admin: 03/30/18 21:09 Dose: Not Given Miscellaneous Information (Misc Mix All Iv Meds In Ns) 1 each MISCELLANE UNSCH PRN PRN Reason: SEE LABEL COMMENTS Miscellaneous Medication () 1 each OROPHARYNG 0000,0400,1200,1600 [facility] Last Admin: 03/30/18 16:57 Dose: 1 each Ondansetron HCl (Zofran Inj) 4 mg IV.PUSH Q6H PRN PRN Reason: NAUSEA OR VOMITING Sodium Chloride (Ns Flush) 2 ml IV.FLUSH BID [facility] Last Admin: 03/30/18 21:10 Dose: 2 ml Sodium Chloride (Ns Flush) 2 ml IV.FLUSH PRN PRN PRN Reason: FLUSH AFTER USING IV ACCESS Terbutaline Sulfate (Brethine Inj) 1 mg SQ UNSCH PRN PRN Reason: For Extravasation Ticagrelor (Brilinta) 90 mg PO BID [facility] Last Admin: 03/30/18 21:09 Dose: 90 mg Allergies Allergy/AdvReac Type Severity Reaction Status Date / Time No Allergy Information Allergy Verified 03/29/18 11:38 Available Home Medications Medication Instructions Recorded Confirmed Type Unable to Obtain Home Meds 03/29/18 03/29/18 History Physical Exam Vital signs: Vital Signs 03/29/18 23:00 03/30/18 00:00 03/30/18 00:59 Temperature 91.4 F L 91.4 F L Pulse Rate 62 61 Respiratory Rate 16 16 17 Blood Pressure 108/69 107/69 Pulse Oximetry 100 100 100 03/30/18 01:00 03/30/18 02:00 03/30/18 03:00 Temperature 91.4 F L 91.4 F L 91.4 F L Pulse Rate 59 L 60 60 Respiratory Rate 16 16 16 Blood Pressure 97/55 L 95/67 L 87/55 L Pulse Oximetry 100 100 100 03/30/18 04:00 03/30/18 04:18 03/30/18 05:00 Temperature 91.4 F L 91.4 F L Pulse Rate 62 66 Respiratory Rate 16 16 16 Blood Pressure 87/60 L 103/65 Pulse Oximetry 100 100 100 03/30/18 06:00 03/30/18 08:00 03/30/18 08:58 Temperature 91.4 F L 91.6 F L Pulse Rate 60 60 Respiratory Rate 16 16 16 Blood Pressure 89/64 L 83/55 L Pulse Oximetry 100 100 100 03/30/18 10:00 03/30/18 11:22 03/30/18 12:00 Temperature 91.6 F L Pulse Rate 60 60 Respiratory Rate 16 16 Blood Pressure 100/63 Pulse Oximetry 100 100 03/30/18 14:00 03/30/18 15:30 03/30/18 16:00 Temperature 91.6 F L Pulse Rate 60 62 Respiratory Rate 16 16 Blood Pressure 91/56 L Pulse Oximetry 100 100 03/30/18 18:00 03/30/18 20:00 03/30/18 20:19 Temperature 94.1 F L Pulse Rate 60 87 Respiratory Rate 16 16 Blood Pressure 101/67 Pulse Oximetry 100 100 03/30/18 22:00 Temperature Pulse Rate 95 H Respiratory Rate Blood Pressure Pulse Oximetry Intake & Output 03/30/18 03/30/18 03/31/18 06:59 18:59 06:59 Intake Total 2350 / 2350 300 / 300 Output Total 400 / 400 200 / 200 Balance 1949 / 1950 100 / 100 Weight 75.5 kg Intake: IV 2350 / 2350 300 / 300 Nimbex Inj 100 MG In NS Inj 240 250 / 250 250 / 250 ML @ 3.3 MCG/KG/MIN 38.16 mls/ hr IV.CONT TITRATE PRN Rx#: [id number] Versed Inj 50 mg In 50 ml @ 2 100 / 100 50 / 50 MG/HR 2 mls/hr IV.CONT TITRATE PRN Rx#:[id number] NS Inj 2,000 ML @ 2000 mls/hr 1999 / 1999 IV.SIG .Q1H OMAR Rx#:[id number] Output: Urine Amount (Catheter) 400 / 400 200 / 200 Indwelling Temp Sensing 400 / 400 200 / 200 Catheter Other: Date of Last Bowel Movement 03/28/18 03/28/18 03/28/18 # Bowel Movements 0 0 Weight On Admission 73.5 kg Narrative: HEENT/ Neuro: Sedated, orally intubated, Pallor present, no icterus, tongue/ mucosa moist. No response to painful stimuli on stopping sedation with no purposeful movements.. Opened eyes transiently with blank stare. Neck: No JVD Chest/Pulm: on mech vent, good air entry bilaterally, no wheezing or crackles CVS: S1-S2 regular, no murmur GI/abdomen: soft, nontender, bowel sounds sluggish Extremities: cool bilaterally, no edema - Urinary Catheter Management Indwelling Temp Sensing Catheter Cath placed during this visit: yes Reason for continuing: Hourly intake/output Insertion date: 03/29/18 Insertion time: 15:00 Results 03/30/18 04:30 03/30/18 20:45 Cardiac Enzymes 03/29/18 03/29/18 03/29/18 Range/Units 11:20 11:20 15:20 AST 39 H (15-37) U/L CK-MB (CK-2) 2.7 (0.5-3.6) ng/mL Troponin I 0.29 H (0.02-0.05) ng/mL B-Natriuretic Peptide 220 H (0-100) pg/mL 03/29/18 03/29/18 03/30/18 Range/Units 15:20 20:08 04:30 AST Cancelled 54 H (15-37) U/L CK-MB (CK-2) (0.5-3.6) ng/mL Troponin I 9.96 H* 13.30 H* (0.02-0.05) ng/mL B-Natriuretic Peptide (0-100) pg/mL Coagulation 03/29/18 03/29/18 03/29/18 Range/Units 11:20 11:20 17:35 PT 9.9 (9.8-11.6) sec APTT 24.0 L 37.8 H D (24.3-30.1) sec B-Natriuretic Peptide 220 H (0-100) pg/mL CBC 03/29/18 03/29/18 03/30/18 Range/Units 11:20 17:35 04:30 WBC 12.2 H 12.8 H 9.5 (4.0-11.0) th/mm3 RBC 4.14 L 3.68 L 3.52 L (4.50-5.90) mil/mm3 Hgb 13.7 12.2 L 11.6 L (13.0-17.0) gm/dL Hct 40.7 35.6 L 33.9 L (39.0-51.0) % Plt Count 243 185 170 (150-450) th/mm3 Neut # (Auto) 7.3 8.1 H (1.8-7.7) th/mm3 Lymph # (Auto) 3.9 0.8 L (1.0-4.8) th/mm3 Imperial # (Auto) 0.5 0.5 (0.0-0.9) th/mm3 Eos # (Auto) 0.3 0.0 (0.0-0.4) th/mm3 Baso # (Auto) 0.1 0.0 (0.0-0.2) th/mm3 Comprehensive Metabolic Panel 03/29/18 03/29/18 03/29/18 Range/Units 11:20 15:20 15:20 Sodium (136-145) meq/L Potassium (3.5-5.1) meq/L Chloride (98-107) meq/L Carbon Dioxide (21.0-32.0) meq/L BUN (7-18) mg/dL Creatinine (0.60-1.30) mg/dL Calcium 9.1 (8.5-10.1) mg/dL Direct Bilirubin 0.3 H Cancelled (0.0-0.2) mg/dL Indirect Bilirubin 0.4 Cancelled (0.0-0.8) mg/dL AST 39 H Cancelled (15-37) U/L ALT 19 Cancelled (12-78) U/L Alkaline Phosphatase 98 Cancelled (45-117) U/L Total Protein 5.5 L Cancelled (6.4-8.2) g/dL Albumin 2.8 L Cancelled (3.4-5.0) g/dL 03/30/18 03/30/18 Range/Units 04:30 20:45 Sodium 134 L 134 L (136-145) meq/L Potassium 4.6 4.6 (3.5-5.1) meq/L Chloride 102 103 (98-107) meq/L Carbon Dioxide 20.9 L 19.8 L (21.0-32.0) meq/L BUN 16 15 (7-18) mg/dL Creatinine 1.25 1.03 (0.60-1.30) mg/dL Calcium 7.3 L* D 7.5 L (8.5-10.1) mg/dL Direct Bilirubin 0.2 (0.0-0.2) mg/dL Indirect Bilirubin 0.3 (0.0-0.8) mg/dL AST 54 H (15-37) U/L ALT 22 (12-78) U/L Alkaline Phosphatase 93 (45-117) U/L Total Protein 5.6 L (6.4-8.2) g/dL Albumin 2.7 L (3.4-5.0) g/dL Intake and Output 03/30/18 03/30/18 03/30/18 06:59 14:59 22:59 Intake Total 300 / 300 50 / 50 250 / 250 Output Total 400 / 400 200 / 200 Balance -100 / -100 50 / 50 50 / 50 Intake: IV 300 / 300 50 / 50 250 / 250 Nimbex Inj 100 MG In NS Inj 240 250 / 250 250 / 250 ML @ 3.3 MCG/KG/MIN 38.16 mls/ hr IV.CONT TITRATE PRN Rx#: [id number] Versed Inj 50 mg In 50 ml @ 2 50 / 50 50 / 50 MG/HR 2 mls/hr IV.CONT TITRATE PRN Rx#:[id number] Output: Urine Amount (Catheter) 400 / 400 200 / 200 Indwelling Temp Sensing 400 / 400 200 / 200 Catheter Other: Date of Last Bowel Movement 03/28/18 03/28/18 03/28/18 # Bowel Movements 0 0 Weight 75.5 kg - Imaging and Cardiology Imaging: Impressions Chest X-Ray 03/29/18 11:24 CONCLUSION: 1. The endotracheal tube and NG tube are in good position. 2. No evidence of pneumothorax. 3. No acute pulmonary infiltrates. Assessment and Plan - Assessment (1) ST elevation myocardial infarction (STEMI) Code(s): I21.3 - ST elevation (STEMI) myocardial infarction of unspecified site Status: Acute (2) Acute respiratory failure Code(s): J96.00 - Acute respiratory failure, unspecified whether with hypoxia or hypercapnia Status: Acute (3) History of permanent cardiac pacemaker placement Code(s): Z95.0 - Presence of cardiac pacemaker Status: Acute (4) Cardiac arrest with ventricular fibrillation Code(s): I46.9 - Cardiac arrest, cause unspecified; I49.01 - Ventricular fibrillation Status: Acute (5) History of coronary artery stent placement Code(s): Z95.5 - Presence of coronary angioplasty implant and graft Status: Acute (6) Hyperlipidemia Code(s): E78.5 - Hyperlipidemia, unspecified Status: Acute (7) Hypertension Code(s): I10 - Essential (primary) hypertension Status: Acute - Plan 1) Vfib arrest Most likely due to coronary dissection 2) Inferior STEMI with coronary dissection s/p KAILA to RCA Significant spasm in multiple vessels due to Vfib arrest/ischemia ASA/Brilinta 3) Encephalopathy Will await rewarming to see about neurologic status 4) Hypothermia protocol Plan for rewarming today at 1700 5) PPM interrogated 11 mins of ventricular fibrillation No other events (1) ST elevation myocardial infarction (STEMI) Qualifiers: Involved coronary artery: unspecified coronary artery Qualified Code(s): I21.3 - ST elevation (STEMI) myocardial infarction of unspecified site
[2018-03-30] MEDS ORDERED: Potassium Chlor 20 mEq Premix 20 MEQ/100 ML PIGGYBACK IV.SIG PRN ×2 (23:29)
[2018-03-30] MEDS ORDERED: Magnesium Oxide 400 MG Tablet PO PRN (23:29)
[2018-03-30] MEDS ORDERED: Sodium Phosphate Inj 30 MMOL in Sodium Chlor 0.9% Inj 250 ML IV.SIG PRN (23:29)
[2018-03-30] MEDS ORDERED: Potassium Phosphate Inj 30 MMOL in Sodium Chlor 0.9% Inj 250 ML IV.SIG PRN (23:29)
[2018-03-30] MEDS ORDERED: Magnesium Sulfate Inj 2 GM in Sodium Chlor 0.9% Inj 96 ML IV.SIG PRN (23:29)
[2018-03-30] MEDS ORDERED: Potassium Chloride 25 MEQ Effervescent Tablet PO PRN (23:29)
[2018-03-30] MEDS ORDERED: Magnesium Sulfate Inj 4 GM in Sodium Chlor 0.9% Inj 92 ML IV.SIG PRN (23:29)
[2018-03-30] MEDS ORDERED: Potassium Phosphate 500 MG Soluble Tablet PO PRN ×2 (23:29)
[2018-03-30] MEDS ORDERED: Potassium Chlor 40 mEq Premix 40 MEQ/100 ML PIGGYBACK IV.SIG PRN ×2 (23:29)
[2018-03-31] MEDS: Oral Hygiene Kit OROPHARYNG SCH ×4 (00:09→15:15)
[2018-03-31] MEDS: Midazolam 50 MG/50 ML Inj 50 MG/50 ML BAG IV.CONT PRN (01:35)
[2018-03-31] MEDS: Norepinephrine Inj 4 MG in Sodium Chlor 0.9% Inj 246 ML IV.SIG PRN ×2 (02:00→19:53)
[2018-03-31] MEDS ORDERED: Sodium Chlor 0.9% Inj 250 ML IV.SIG SCH (02:00)
[2018-03-31 04:34] LABS: Hematocrit 31.2 % (39.0-51.0); Hemoglobin 10.2 gm/dL (13.0-17.0); Mean Corpuscular HGB Conc 32.7 % (32.0-36.0); Mean Corpuscular Hemoglobin 32.4 pg (27.0-34.0); Mean Corpuscular Volume 99.3 fL (80.0-100.0); Mean Platelet Volume 7.9 fL (7.0-11.0); Platelet Count 157 th/mm3 (150-450); Red Blood Count 3.14 mil/mm3 (4.50-5.90); Red Cell Distribution Width 14.9 % (11.6-17.2); White Blood Count 12.1 th/mm3 (4.0-11.0)
[2018-03-31 04:49] LABS: Carbon Dioxide 19.5 meq/L (21.0-32.0); Magnesium 2.1 mg/dL (1.5-2.5); Potassium 4.9 meq/L (3.5-5.1)
--- NOTE | 2018-03-31 07:53 | P.PNCC ---
Subjective Subjective Remarks/Hospital Course: Hospital Course: Patient is a 63-year-old male who presents the emergency room via EMS for STEMI alert. As per EMS, patient was with a girlfriend and reported to her that he was not feeling well. He had a syncopal episode. Apparently, patient did not hit his head on the floor, he was lowered to the floor. Patient did lose pulses , bystanders started CPR. When EMS arrived on scene, patient was found to be in V. fib arrest, he was shocked once at 150 and return to pulses. Patient was found to have ST segment elevations in leads II, III, aVF with reciprocal changes. Patient presents the emergency room obtunded, patient unable to provide any HPI. Per ER documentation GCS was 3 following return of spontaneous circulation. Patient was intubated in ER and placed on mechanical ventilation. STEMI alert was called and patient was evaluated by Dr. 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 RCA stenting performed at site of dissection. Patient was started on Versed and fentanyl during cardiac catheterization as he appeared to be gagging and fighting the ventilator. Following procedure he was transferred to [facility] where I evaluated him following his arrival. I personally spoke with Dr. Kline and confirmed GCS 3 on her evaluation following patient's arrival to the ER. Decision was made to initiate hypothermia protocol. I spoke with patient's and son at bedside and they agreed to proceed with Quatro catheter placement and initiation of therapeutic hypothermia. According to patient's he was down for about 5 minutes before EMS arrival and being shocked. He was given bystander CPR by family immediately on going down. Subjective: 03/30: at target temperature. on low-dose vasopressors intermittently. uop marginal but adequate, likely due to hypothermia. trop increasing still, but no other evidence of coronary ischemia. 03/31: rewarmed. following commands. still on levophed. organ function stable. Objective Vital Signs / I&O: Vital Signs 03/30/18 08:00 03/30/18 08:58 03/30/18 10:00 Temperature 33.1 C L Pulse Rate 60 60 Respiratory Rate 16 16 Blood Pressure 83/55 L Pulse Oximetry 100 100 03/30/18 11:22 03/30/18 12:00 03/30/18 14:00 Temperature 33.1 C L Pulse Rate 60 60 Respiratory Rate 16 16 Blood Pressure 100/63 Pulse Oximetry 100 100 03/30/18 15:30 03/30/18 16:00 03/30/18 18:00 Temperature 33.1 C L Pulse Rate 62 60 Respiratory Rate 16 16 Blood Pressure 91/56 L Pulse Oximetry 100 100 03/30/18 20:00 03/30/18 20:19 03/30/18 22:00 Temperature 34.5 C L Pulse Rate 87 95 H Respiratory Rate 16 16 Blood Pressure 101/67 Pulse Oximetry 100 100 03/30/18 23:55 03/31/18 00:00 03/31/18 02:00 Temperature 35.9 C L Pulse Rate 108 H 110 H Respiratory Rate 16 16 Blood Pressure 86/51 L Pulse Oximetry 99 100 03/31/18 04:00 03/31/18 06:00 Temperature 36.0 C L Pulse Rate 101 H 101 H Respiratory Rate 16 Blood Pressure 94/59 L Pulse Oximetry 100 Intake & Output 03/30/18 03/31/18 03/31/18 18:59 06:59 18:59 Intake Total 300 / 300 710 / 710 Output Total 200 / 200 250 / 250 Balance 100 / 100 460 / 460 Weight 72 kg Intake: IV 300 / 300 650 / 650 Nimbex Inj 100 MG In NS Inj 240 250 / 250 100 / 100 ML @ 3.3 MCG/KG/MIN 38.16 mls/ hr IV.CONT TITRATE PRN Rx#: [id number] Versed Inj 50 mg In 50 ml @ 2 50 / 50 50 / 50 MG/HR 2 mls/hr IV.CONT TITRATE PRN Rx#:[id number] Levophed Inj 4 MG In NS Inj 246 250 / 250 ML @ 0.5 MCG/MIN 1.87 mls/hr IV.SIG TITRATE PRN Rx#:[id number] NS Inj 250 ML @ Wide Open IV. 250 / 250 SIG BOLUS OMAR Rx#:[id number] Water Bolus Amount 60 / 60 Output: Urine Amount (Catheter) 200 / 200 150 / 150 Indwelling Temp Sensing 200 / 200 150 / 150 Catheter Gastric Drainage 100 / 100 Oral 100 / 100 Other: Date of Last Bowel Movement 03/28/18 03/28/18 # Bowel Movements 0 Result Diagrams: 03/31/18 03:30 03/31/18 03:30 Objective Remarks: GENERAL: Middle-age male, lying in bed, awakens and follows commands. HEENT: Normocephalic. Atraumatic. Pupils equal, round, reactive, conjugate. Mucous membranes are moist NECK: Trachea is midline. There is no JVD. CHEST: Equal chest rise. PRVC. FiO2 40%. CARDIOVASCULAR: slightly tachycardic rate at 104, regular rhythm. Sinus. ABDOMEN: Soft, nontender, nondistended. No guarding. MUSCULOSKELETAL: Pulses 2+. No peripheral edema. NEUROLOGICAL: RASS -2. arouses and follows commands x 4. Assessment and Plan - Assessment and Plan Plan: Assessment: 63-year-old male status post out of hospital V. fib cardiac arrest with associated cardiogenic shock and hypoxic ischemic encephalopathy. Clinically starting to improve. shock persists. will work towards weaning of mechanical ventilation. Remains very critically ill. Plan by systems: Neurologic: Hypoxic ischemic encephalopathy- improving Frequent neurochecks transition to propofol and fentanyl. goal RASS -1. d/c midazolam. d/c nimbex. Avoid long-acting sedatives s/p therapetuic hypothermia. rewarmed AM 03/31. Respiratory: Acute hypoxic and hypercarbic respiratory failure Vent bundle Head of bed elevated Nebs start SBTs. Wean FiO2 for goal SPO2 greater than 90% Cardiovascular: Out of hospital ventricular fibrillation cardiac arrest Cardiogenic shock ST elevation myocardial infarction Hyperlipidemia Status post RCA stent 03/29 Trend troponins s/p therapeutic hypothermia norepinephrine for goal map greater than 65 Continue Brilinta Continue statin 2D echo Renal: Acute kidney injury- improving Secondary to cardiogenic shock from out of hospital cardiac arrest Continue Rosalinda Trend creatinine -- Strict I/Os FEN/GI: Tube feeds ICU electrolyte protocol Daily BMP, magnesium, phosphorus Maintenance IV fluids Heme/ID: Daily CBC Endocrine: Hyperglycemia of critical illness -- SSI Prophylaxis: GI Prophylaxis Pepcid DVT Prophylaxis -- SCDs Subcu heparin Lines: Quatro Cool catheter 03/29: keep today to prevent rebound hyperthermia Rosalinda 03/29 Dispo: Remain in the ICU.
[2018-03-31] MEDS: Chlorhexidine 0.12% Oral Kit 15 ML UDC OROPHARYNG SCH ×2 (08:25→20:55)
[2018-03-31] MEDS: Docusate Sodium Liq 100 MG/10 ML UDC PO SCH (08:25)
[2018-03-31] MEDS: Famotidine PF Inj 20 MG/2 ML Vial IV.PUSH SCH (08:25)
[2018-03-31] MEDS: Metoprolol Tartrate 25 MG Tablet PO SCH (08:26)
[2018-03-31] MEDS ORDERED: Magnesium Sulfate Inj 2 GM in Sodium Chlor 0.9% Inj 96 ML IV.SIG ONE (09:00)
[2018-03-31] MEDS ORDERED: Propofol 1000 mg/100 ml Inj 1,000 MG/100 ML BOTTLE IV.CONT PRN (09:00)
[2018-03-31] MEDS: fentaNYL 10 mcg/mL Premix Drip 2,500 MCG/250 ML BAG IV.SIG PRN (09:02)
[2018-03-31 11:28] LABS: ABG Base Excess -8.9 mmol/L (-2-2); ABG PCO2 36 mmHg (38-42); ABG PO2 136 mmHG (61-120)
[2018-03-31] MEDS ORDERED: Sodium Bicarbonate 8.4% Inj 50 MEQ/50 ML Syringe IV.PUSH SCH (12:15)
[2018-03-31 13:33] LABS: ABG Base Excess -3.1 mmol/L (-2-2); ABG PCO2 33 mmHg (38-42); ABG PO2 56 mmHG (61-120)
[2018-03-31] MEDS ORDERED: Gelatin 12 MM/7 MM Topical Foam ONE (14:09)
--- NOTE | 2018-03-31 15:49 | P.PNPAL ---
Reason for Visit Reason for visit: a. To assist with evaluation and management of symptoms including: pain, altered mental status b. To assist medical decision maker(s) with: better understanding of current medical conditions; weighing benefits/burdens of medical treatment options; making medical treatment decisions. Subjective Subjective/Interval History: Mr. Marrero is a 63-year-old male who presented to [facility] ED on 03/29/2018 status V. fib arrest. The patient was with his when he told her he was not feeling well with subsequent syncopal episode. He was lowered to the floor. Patient became pulseless, and bystanders started CPR. Per EMS report, patient was found to be in V. fib arrest; he was shocked once with return of circulation. Patient's GCS was 3 following ROSC. He was intubated in the ED and placed on mechanical ventilation. STEMI alert was called and patient was evaluated by Dr. 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 RCA stenting performed at site of dissection. Patient was transferred to the [facility] following the procedure. According to the patient's , the patient was down for about 5 minutes before EMS arrived and being shocked. Bystanders started CPR immediately. After Dr. Flores spoke with the patient's family/friends, a decision was made to proceed with Quadtro catheter placement and initiation of therapeutic hypothermia. Follow up visit earlier this morning for symptom management and clarification of medical treatment goals. Clinical data: * WBC: 12.1, hemoglobin 10.0, hematocrit 31.2, platelets 157 * Sodium: 138, potassium 4.9, chloride 105, carbon dioxide 19.5, glucose 77, calcium 8.0, magnesium 2.1 * BUN: 16, creatinine 1.17, GFR 63 * Blood cultures negative times 1 day Patient was seen and assessed in the [facility]. His was at bedside. Patient has been rewarmed. Remains on low dose Levophed. He he is alert and following commands; nodding and shaking his head to yes no questions. Plan for extubation later today. Advance Directives Advance Directives Date on File: 03/30/18 Health Care Surrogate Name and Number: Neris Marrero () [phone] Documented care wishes:: Patient completed a "declaration of a desire for a natural " on 1996. Copies of the patient's written advanced directives were placed in his paper chart. Copies were faxed to HIM to be scanned into the patient's EMR. Objective Vital Signs: Vital Signs 03/30/18 15:30 03/30/18 16:00 03/30/18 18:00 Temperature 91.6 F L Pulse Rate 62 60 Respiratory Rate 16 16 Blood Pressure 91/56 L Pulse Oximetry 100 100 03/30/18 20:00 03/30/18 20:19 03/30/18 22:00 Temperature 94.1 F L Pulse Rate 87 95 H Respiratory Rate 16 16 Blood Pressure 101/67 Pulse Oximetry 100 100 03/30/18 23:55 03/31/18 00:00 03/31/18 02:00 Temperature 96.6 F L Pulse Rate 108 H 110 H Respiratory Rate 16 16 Blood Pressure 86/51 L Pulse Oximetry 99 100 03/31/18 04:00 03/31/18 06:00 03/31/18 07:59 Temperature 96.8 F L Pulse Rate 101 H 101 H 10 L Respiratory Rate 16 23 Blood Pressure 94/59 L Pulse Oximetry 100 92 L 03/31/18 08:00 03/31/18 10:00 03/31/18 12:00 Temperature 97.0 F L 98.6 F Pulse Rate 100 H 110 H 112 H Respiratory Rate 23 18 Blood Pressure 94/59 L 93/56 L Pulse Oximetry 95 97 03/31/18 13:30 03/31/18 14:00 Temperature Pulse Rate 124 H Respiratory Rate Blood Pressure Pulse Oximetry 96 Intake & Output 03/30/18 03/31/18 03/31/18 18:59 06:59 18:59 Intake Total 300 / 300 710 / 710 611 / 611 Output Total 200 / 200 250 / 250 Balance 100 / 100 460 / 460 611 / 611 Weight 72 kg Intake: IV 300 / 300 650 / 650 611 / 611 Sodium Bicarbonate 8.4% Inj 100 100 / 100 ML @ 0 mls/hr .ROUTE .STK-MED ONE Rx#:[id number] Nimbex Inj 100 MG In NS Inj 240 250 / 250 100 / 100 100 / 100 ML @ 3.3 MCG/KG/MIN 38.16 mls/ hr IV.CONT TITRATE PRN Rx#: [id number] Versed Inj 50 mg In 50 ml @ 2 50 / 50 50 / 50 30 / 30 MG/HR 2 mls/hr IV.CONT TITRATE PRN Rx#:[id number] Diprivan 1000 mg/100 ml Inj 1, 1 / 1 000 mg In 100 ml @ 5 MCG/KG/MIN 2.16 mls/hr IV.CONT TITRATE PRN Rx#:[id number] Magnesium Sulfate Inj 2 GM In 100 / 100 NS Inj 96 ML @ 50 mls/hr IV.SIG ONCE ONE Rx#:[id number] Levophed Inj 4 MG In NS Inj 246 250 / 250 ML @ 0.5 MCG/MIN 1.87 mls/hr IV.SIG TITRATE PRN Rx#:[id number] NS Inj 250 ML @ Wide Open IV. 250 / 250 0 / 0 SIG BOLUS OMAR Rx#:[id number] fentaNYL 10 mcg/mL Premix Drip 280 / 280 2,500 mcg In 250 ml @ 50 MCG/HR 5 mls/hr IV.SIG TITRATE PRN Rx #:[id number] Water Bolus Amount 60 / 60 Output: Urine Amount (Catheter) 200 / 200 150 / 150 Indwelling Temp Sensing 200 / 200 150 / 150 Catheter Gastric Drainage 100 / 100 Oral 100 / 100 Other: Date of Last Bowel Movement 03/28/18 03/28/18 03/28/18 # Bowel Movements 0 Physical Exam: CONSTITUTIONAL/GENERAL: This is a middle-aged male patient who is currently sedated and paralyzed; intubated on mechanical ventilation TUBES/LINES/DRAINS: PIV x 2; left femoral central line, Tellez catheter, OGT, ETT SKIN: Abrasion noted on right lower extremity. Warm to touch Not diaphoretic. HEAD: Atraumatic. Normocephalic. EYES: Pupils equal and round and reactive. No scleral icterus. No injection or drainage. Fundi not examined. ENT: Hearing grossly normal. Nose without bleeding or purulent drainage. Mucous membranes moist. NECK: Trachea midline. Supple, nontender. No palpable thyroid enlargement or nodularity. CARDIOVASCULAR: Tachycardic. No JVD. RESPIRATORY/CHEST: Intubated on mechanical vent. PRBC. FiO2 40%. GASTROINTESTINAL: Abdomen soft, non-tender, nondistended. No guarding. GENITOURINARY: Without palpable bladder distension. Tellez catheter in place. MUSCULOSKELETAL: Extremities without clubbing, cyanosis, or edema. No mottling or clubbing. LYMPHATICS: No palpable cervical or supraclavicular adenopathy. NEUROLOGICAL: Awake and alert. Follows simple commands. Nodding/shaking his head to yes/no questions. PSYCHIATRIC: Anxious. No obvious hallucinations or psychotic thought processes noted. Diagnostic Tests Laboratory: Laboratory Results - last 72 hr 03/29/18 03/29/18 03/29/18 11:20 11:20 11:20 WBC 12.2 H RBC 4.14 L Hgb 13.7 POC Hgb (Calc) Hct 40.7 POC Hct MCV 98.3 MCH 33.1 MCHC 33.7 RDW 14.6 Plt Count 243 MPV 7.8 Neut % (Auto) 60.0 Lymph % (Auto) 32.3 Barren % (Auto) 4.4 Eos % (Auto) 2.8 Baso % (Auto) 0.5 Neut # (Auto) 7.3 Lymph # (Auto) 3.9 Barren # (Auto) 0.5 Eos # (Auto) 0.3 Baso # (Auto) 0.1 WBC Differential . Differential Comment Auto diff final PT 9.9 INR 1.0 APTT 24.0 L Puncture Site Patient Temperature O2 Saturation ABG pH ABG pCO2 ABG pO2 ABG HCO3 ABG O2 Content ABG Base Excess ABG Methemoglobin Oscar Test Hemoglobin Carboxyhemoglobin O2 Delivery Device Liter Flow Vent Setting Inspired O2 Critical Value POC Sodium Sodium POC Potassium Potassium POC Chloride Chloride Carbon Dioxide Anion Gap POC BUN BUN Creatinine POC Creatinine Estimated GFR POC Glucose Random Glucose Lactic Acid Calcium 9.1 Prot Corrected Calcium Phosphorus Magnesium 2.0 Total Bilirubin Direct Bilirubin Indirect Bilirubin AST ALT Alkaline Phosphatase Total Creatine Kinase 127 CK-MB (CK-2) 2.7 Troponin I 0.29 H B-Natriuretic Peptide Total Protein Albumin Urine Color Urine Clarity Urine pH Ur Specific Kipling Urine Protein Urine Glucose (UA) Urine Ketones Urine Occult Blood Urine Nitrate Urine Bilirubin Urine Urobilinogen Ur Leukocyte Esterase Urine RBC Urine WBC Ur Squamous Epith Cells Urine Mucus Ur Microscopic Review Urine Opiates Screen Ur Barbiturates Screen Ur Amphetamines Screen U Benzodiazepines Scrn Urine Cocaine Screen U Cannabinoids Screen Blood Type Blood Type Recheck Antibody Screen 03/29/18 03/29/18 03/29/18 11:20 11:20 13:52 WBC RBC Hgb POC Hgb (Calc) 13.6 Hct POC Hct 40.0 MCV MCH MCHC RDW Plt Count MPV Neut % (Auto) Lymph % (Auto) Barren % (Auto) Eos % (Auto) Baso % (Auto) Neut # (Auto) Lymph # (Auto) Barren # (Auto) Eos # (Auto) Baso # (Auto) WBC Differential Differential Comment PT INR APTT Puncture Site Right radial Patient Temperature 98.6 O2 Saturation 96 ABG pH 7.32 L ABG pCO2 34 L ABG pO2 160 H ABG HCO3 17 L ABG O2 Content 18.1 ABG Base Excess -7.8 L ABG Methemoglobin 1.6 Oscar Test Present Hemoglobin 13.2 Carboxyhemoglobin 0.6 O2 Delivery Device Ventilator Liter Flow Vent Setting Prvc/[id number] Inspired O2 50 Critical Value No POC Sodium 127 L Sodium POC Potassium 4.3 Potassium POC Chloride 96 L Chloride Carbon Dioxide Anion Gap POC BUN 13 BUN Creatinine POC Creatinine 1.8 H Estimated GFR POC Glucose 154 H Random Glucose Lactic Acid Calcium Prot Corrected Calcium Phosphorus Magnesium Total Bilirubin Direct Bilirubin Indirect Bilirubin AST ALT Alkaline Phosphatase Total Creatine Kinase CK-MB (CK-2) Troponin I B-Natriuretic Peptide 220 H Total Protein Albumin Urine Color Urine Clarity Urine pH Ur Specific Kipling Urine Protein Urine Glucose (UA) Urine Ketones Urine Occult Blood Urine Nitrate Urine Bilirubin Urine Urobilinogen Ur Leukocyte Esterase Urine RBC Urine WBC Ur Squamous Epith Cells Urine Mucus Ur Microscopic Review Urine Opiates Screen Ur Barbiturates Screen Ur Amphetamines Screen U Benzodiazepines Scrn Urine Cocaine Screen U Cannabinoids Screen Blood Type Blood Type Recheck Antibody Screen 03/29/18 03/29/18 03/29/18 15:06 15:20 15:20 WBC RBC Hgb POC Hgb (Calc) Hct POC Hct MCV MCH MCHC RDW Plt Count MPV Neut % (Auto) Lymph % (Auto) Barren % (Auto) Eos % (Auto) Baso % (Auto) Neut # (Auto) Lymph # (Auto) Barren # (Auto) Eos # (Auto) Baso # (Auto) WBC Differential Differential Comment PT INR APTT Puncture Site Patient Temperature O2 Saturation ABG pH ABG pCO2 ABG pO2 ABG HCO3 ABG O2 Content ABG Base Excess ABG Methemoglobin Oscar Test Hemoglobin Carboxyhemoglobin O2 Delivery Device Liter Flow Vent Setting Inspired O2 Critical Value POC Sodium Sodium POC Potassium Potassium POC Chloride Chloride Carbon Dioxide Anion Gap POC BUN BUN Creatinine POC Creatinine Estimated GFR POC Glucose Random Glucose Lactic Acid 0.7 Calcium Prot Corrected Calcium Phosphorus 3.2 Magnesium 1.9 Total Bilirubin 0.7 Direct Bilirubin 0.3 H Indirect Bilirubin 0.4 AST 39 H ALT 19 Alkaline Phosphatase 98 Total Creatine Kinase CK-MB (CK-2) Troponin I B-Natriuretic Peptide Total Protein 5.5 L Albumin 2.8 L Urine Color Urine Clarity Urine pH Ur Specific Kipling Urine Protein Urine Glucose (UA) Urine Ketones Urine Occult Blood Urine Nitrate Urine Bilirubin Urine Urobilinogen Ur Leukocyte Esterase Urine RBC Urine WBC Ur Squamous Epith Cells Urine Mucus Ur Microscopic Review Urine Opiates Screen Neg Ur Barbiturates Screen Neg Ur Amphetamines Screen Neg U Benzodiazepines Scrn Pos H Urine Cocaine Screen Neg U Cannabinoids Screen Neg Blood Type Blood Type Recheck Antibody Screen 03/29/18 03/29/18 03/29/18 15:20 15:20 17:35 WBC 12.8 H RBC 3.68 L Hgb 12.2 L POC Hgb (Calc) Hct 35.6 L POC Hct MCV 96.8 MCH 33.3 MCHC 34.4 RDW 14.5 Plt Count 185 MPV 7.4 Neut % (Auto) Lymph % (Auto) Barren % (Auto) Eos % (Auto) Baso % (Auto) Neut # (Auto) Lymph # (Auto) Barren # (Auto) Eos # (Auto) Baso # (Auto) WBC Differential Differential Comment PT INR APTT Puncture Site Patient Temperature O2 Saturation ABG pH ABG pCO2 ABG pO2 ABG HCO3 ABG O2 Content ABG Base Excess ABG Methemoglobin Oscar Test Hemoglobin Carboxyhemoglobin O2 Delivery Device Liter Flow Vent Setting Inspired O2 Critical Value POC Sodium Sodium POC Potassium Potassium POC Chloride Chloride Carbon Dioxide Anion Gap POC BUN BUN Creatinine POC Creatinine Estimated GFR POC Glucose Random Glucose Lactic Acid Calcium Prot Corrected Calcium Phosphorus Magnesium Total Bilirubin Cancelled Direct Bilirubin Cancelled Indirect Bilirubin Cancelled AST Cancelled ALT Cancelled Alkaline Phosphatase Cancelled Total Creatine Kinase CK-MB (CK-2) Troponin I B-Natriuretic Peptide Total Protein Cancelled Albumin Cancelled Urine Color Urine Clarity Urine pH Ur Specific Kipling Urine Protein Urine Glucose (UA) Urine Ketones Urine Occult Blood Urine Nitrate Urine Bilirubin Urine Urobilinogen Ur Leukocyte Esterase Urine RBC Urine WBC Ur Squamous Epith Cells Urine Mucus Ur Microscopic Review Urine Opiates Screen Ur Barbiturates Screen Ur Amphetamines Screen U Benzodiazepines Scrn Urine Cocaine Screen U Cannabinoids Screen Blood Type O Positive Blood Type Recheck Required Antibody Screen Negative 03/29/18 03/29/18 03/29/18 17:35 17:50 20:08 WBC RBC Hgb POC Hgb (Calc) Hct POC Hct MCV MCH MCHC RDW Plt Count MPV Neut % (Auto) Lymph % (Auto) Barren % (Auto) Eos % (Auto) Baso % (Auto) Neut # (Auto) Lymph # (Auto) Barren # (Auto) Eos # (Auto) Baso # (Auto) WBC Differential Differential Comment PT INR APTT 37.8 H D Puncture Site Patient Temperature O2 Saturation ABG pH ABG pCO2 ABG pO2 ABG HCO3 ABG O2 Content ABG Base Excess ABG Methemoglobin Oscar Test Hemoglobin Carboxyhemoglobin O2 Delivery Device Liter Flow Vent Setting Inspired O2 Critical Value POC Sodium Sodium POC Potassium Potassium POC Chloride Chloride Carbon Dioxide Anion Gap POC BUN BUN Creatinine POC Creatinine Estimated GFR POC Glucose Random Glucose Lactic Acid Calcium Prot Corrected Calcium Phosphorus Magnesium Total Bilirubin Direct Bilirubin Indirect Bilirubin AST ALT Alkaline Phosphatase Total Creatine Kinase CK-MB (CK-2) Troponin I 9.96 H* B-Natriuretic Peptide Total Protein Albumin Urine Color Straw Urine Clarity Clear Urine pH 5.0 Ur Specific Kipling 1.020 Urine Protein Negative Urine Glucose (UA) Negative Urine Ketones 20 Urine Occult Blood Small H Urine Nitrate Negative Urine Bilirubin Negative Urine Urobilinogen Less than 2 Ur Leukocyte Esterase Negative Urine RBC Less than 1 Urine WBC 1 Ur Squamous Epith Cells <1 Urine Mucus Few H Ur Microscopic Review Not Reportable Urine Opiates Screen Ur Barbiturates Screen Ur Amphetamines Screen U Benzodiazepines Scrn Urine Cocaine Screen U Cannabinoids Screen Blood Type Blood Type Recheck Antibody Screen 03/30/18 03/30/18 03/30/18 04:30 04:30 20:45 WBC 9.5 RBC 3.52 L Hgb 11.6 L POC Hgb (Calc) Hct 33.9 L POC Hct MCV 96.5 MCH 33.0 MCHC 34.2 RDW 14.9 Plt Count 170 MPV 7.5 Neut % (Auto) 85.4 H Lymph % (Auto) 8.9 L Barren % (Auto) 5.3 Eos % (Auto) 0.2 Baso % (Auto) 0.2 Neut # (Auto) 8.1 H Lymph # (Auto) 0.8 L Barren # (Auto) 0.5 Eos # (Auto) 0.0 Baso # (Auto) 0.0 WBC Differential . Differential Comment Auto diff final PT INR APTT Puncture Site Patient Temperature O2 Saturation ABG pH ABG pCO2 ABG pO2 ABG HCO3 ABG O2 Content ABG Base Excess ABG Methemoglobin Oscar Test Hemoglobin Carboxyhemoglobin O2 Delivery Device Liter Flow Vent Setting Inspired O2 Critical Value POC Sodium Sodium 134 L 134 L POC Potassium Potassium 4.6 4.6 POC Chloride Chloride 102 103 Carbon Dioxide 20.9 L 19.8 L Anion Gap 11 11 POC BUN BUN 16 15 Creatinine 1.25 1.03 POC Creatinine Estimated GFR 58 L 73 L POC Glucose Random Glucose 78 76 Lactic Acid Calcium 7.3 L* D 7.5 L Prot Corrected Calcium 8.1 L Phosphorus Magnesium 1.8 Total Bilirubin 0.5 Direct Bilirubin 0.2 Indirect Bilirubin 0.3 AST 54 H ALT 22 Alkaline Phosphatase 93 Total Creatine Kinase CK-MB (CK-2) Troponin I 13.30 H* B-Natriuretic Peptide Total Protein 5.6 L Albumin 2.7 L Urine Color Urine Clarity Urine pH Ur Specific Kipling Urine Protein Urine Glucose (UA) Urine Ketones Urine Occult Blood Urine Nitrate Urine Bilirubin Urine Urobilinogen Ur Leukocyte Esterase Urine RBC Urine WBC Ur Squamous Epith Cells Urine Mucus Ur Microscopic Review Urine Opiates Screen Ur Barbiturates Screen Ur Amphetamines Screen U Benzodiazepines Scrn Urine Cocaine Screen U Cannabinoids Screen Blood Type Blood Type Recheck Antibody Screen 03/31/18 03/31/18 03/31/18 00:17 03:30 03:30 WBC 12.1 H RBC 3.14 L Hgb 10.2 L POC Hgb (Calc) Hct 31.2 L POC Hct MCV 99.3 MCH 32.4 MCHC 32.7 RDW 14.9 Plt Count 157 MPV 7.9 Neut % (Auto) Lymph % (Auto) Barren % (Auto) Eos % (Auto) Baso % (Auto) Neut # (Auto) Lymph # (Auto) Barren # (Auto) Eos # (Auto) Baso # (Auto) WBC Differential Differential Comment PT INR APTT Puncture Site Patient Temperature O2 Saturation ABG pH ABG pCO2 ABG pO2 ABG HCO3 ABG O2 Content ABG Base Excess ABG Methemoglobin Oscar Test Hemoglobin Carboxyhemoglobin O2 Delivery Device Liter Flow Vent Setting Inspired O2 Critical Value POC Sodium Sodium 138 POC Potassium Potassium 4.9 POC Chloride Chloride 105 Carbon Dioxide 19.5 L Anion Gap 14 POC BUN BUN 16 Creatinine 1.17 POC Creatinine Estimated GFR 63 L POC Glucose 77 Random Glucose 77 Lactic Acid Calcium 8.0 L Prot Corrected Calcium Phosphorus Magnesium 2.1 Total Bilirubin Direct Bilirubin Indirect Bilirubin AST ALT Alkaline Phosphatase Total Creatine Kinase CK-MB (CK-2) Troponin I B-Natriuretic Peptide Total Protein Albumin Urine Color Urine Clarity Urine pH Ur Specific Kipling Urine Protein Urine Glucose (UA) Urine Ketones Urine Occult Blood Urine Nitrate Urine Bilirubin Urine Urobilinogen Ur Leukocyte Esterase Urine RBC Urine WBC Ur Squamous Epith Cells Urine Mucus Ur Microscopic Review Urine Opiates Screen Ur Barbiturates Screen Ur Amphetamines Screen U Benzodiazepines Scrn Urine Cocaine Screen U Cannabinoids Screen Blood Type Blood Type Recheck Antibody Screen 03/31/18 03/31/18 11:15 13:20 WBC RBC Hgb POC Hgb (Calc) Hct POC Hct MCV MCH MCHC RDW Plt Count MPV Neut % (Auto) Lymph % (Auto) Barren % (Auto) Eos % (Auto) Baso % (Auto) Neut # (Auto) Lymph # (Auto) Barren # (Auto) Eos # (Auto) Baso # (Auto) WBC Differential Differential Comment PT INR APTT Puncture Site Right radial Right radial Patient Temperature 98.6 98.6 O2 Saturation 96 89 L* ABG pH 7.29 L* 7.42 ABG pCO2 36 L 33 L ABG pO2 136 H 56 L* ABG HCO3 17 L 21 L ABG O2 Content 14.8 13.4 ABG Base Excess -8.9 L -3.1 L ABG Methemoglobin 1.6 1.4 Oscar Test Present Present Hemoglobin 10.7 L 10.7 L Carboxyhemoglobin 0.6 0.8 O2 Delivery Device Ventilator Nasal cannula Liter Flow 4.00 Vent Setting Cpap/[id number]/[id number] Inspired O2 40 Critical Value Yes Yes POC Sodium Sodium POC Potassium Potassium POC Chloride Chloride Carbon Dioxide Anion Gap POC BUN BUN Creatinine POC Creatinine Estimated GFR POC Glucose Random Glucose Lactic Acid Calcium Prot Corrected Calcium Phosphorus Magnesium Total Bilirubin Direct Bilirubin Indirect Bilirubin AST ALT Alkaline Phosphatase Total Creatine Kinase CK-MB (CK-2) Troponin I B-Natriuretic Peptide Total Protein Albumin Urine Color Urine Clarity Urine pH Ur Specific Kipling Urine Protein Urine Glucose (UA) Urine Ketones Urine Occult Blood Urine Nitrate Urine Bilirubin Urine Urobilinogen Ur Leukocyte Esterase Urine RBC Urine WBC Ur Squamous Epith Cells Urine Mucus Ur Microscopic Review Urine Opiates Screen Ur Barbiturates Screen Ur Amphetamines Screen U Benzodiazepines Scrn Urine Cocaine Screen U Cannabinoids Screen Blood Type Blood Type Recheck Antibody Screen Result Diagrams: 03/31/18 03:30 03/31/18 03:30 Microbiology: Microbiology 03/30/18 20:45 Aerobic Blood Culture - Preliminary Blood - Line No growth in 1 day Anaerobic Blood Culture - Preliminary No growth in 1 day Imaging: Chest X-Ray 03/29/18 11:24 CONCLUSION: 1. The endotracheal tube and NG tube are in good position. 2. No evidence of pneumothorax. 3. No acute pulmonary infiltrates. Procedures: 03/29/2018: Endotracheal intubation 03/29/2018: Cardiac catheterization 03/29/2018: Left femoral vein central line/cooling catheter placement 03/31/2018: Extubation Assessment and Plan - Disease Oriented Problem List (1) Acute respiratory failure (2) Hyperlipidemia (3) History of permanent cardiac pacemaker placement (4) ST elevation myocardial infarction (STEMI) (5) Cardiac arrest with ventricular fibrillation Pertinent Non-Medical Issues: Psychosocial: Patient is originally from [place]. He has been to his , Neris, for approximately 30 years. They have 4 adult sons and at least one grandson. Patient was in [place] in [employer] industry. He is now retired. Spiritual: Church duane. Patient's tells me they have a very strong duane and believe in miracles. 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 Patient's is designated as the primary healthcare surrogate decision-maker. Ethical issues impacting care: No known ethical issues impacting care at this time. Important Contacts: Neris Marrero, : [phone] JING Marrero, son: [phone] Prognosis: Patient is a 63-year-old male status post out of hospital cardiac arrest on . Therapeutic hypothermia was initiated. Approximately 1% of patients who suffer an out of hospital cardiac arrest survive. Code Status: Full Code Plan: * FULL CODE * Decision making: Patient has designated his , Neris Marrero, as his primary healthcare surrogate decision-maker. * Patient completed a "declaration of a desire for a natural " on 1996. Copies of the patient's written advanced directives were placed in his paper chart. Copies were faxed to HIM to be scanned into the patient's EMR. * AGGRESSIVE GOALS * Discussed patient with Dr. Best and RN, Ion. * Symptom management: Pain: Patient is currently sedated on fentanyl; weaned off of medazepam drip. Showing no signs or symptoms of pain. Factors that could contribute to possible pain include recent CPR, intubation, invasive procedures, immobility etc. We will continue to monitor; no recommendations at this time Altered mental status: Therapeutic hypothermia initiated secondary to concern for anoxic brain injury status post out of hospital V. fib Cardiac arrest. Patient has been rewarmed. He is awake and alert. Following simple one-step commands such as squeezing my hand, giving a "thumbs up" and wiggling his toes. We will continue to monitor; plan for possible extubation later today. * Palliative care will continue to follow this patient throughout his hospitalization to establish trust, assist with symptom management and clarification of medical treatment goals.
--- NOTE | 2018-03-31 16:33 | XR ---
EXAM DATE: 03/31/2018 4:29 PM EDT AGE/SEX: 63 years / Male INDICATIONS: Dobbhoff placement. CLINICAL DATA: This is the patient's initial encounter. Patient reports that signs and symptoms have been present for 4 - 6 days and indicates a pain score of 0/10. MEDICAL/SURGICAL HISTORY: None. None. COMPARISON: No prior exams available for comparison. FINDINGS: Doppler of tube coils in the stomach. Intestinal gas pattern is nonspecific and benign. Tellez cathete r is seen over the pelvis. Degenerative changes noted in the spine and hips. No suspicious calcific d ensities. CONCLUSION: Dobbhoff tube in the stomach. Electronically signed by: Frantz Almonte MD 03/31/2018 4:32 PM EDT
--- NOTE | 2018-03-31 19:29 | P.PNCA ---
Subjective Interval history: Extubated On low dose Levophed No complaints, but mildly lethargic Medications and Allergies Active Medications: Active Medications Acetaminophen (Tylenol Liq) 650 mg NG/OG Q6H PRN PRN Reason: SHIVERING Acetaminophen (Tylenol Liq) 650 mg PO Q6H PRN PRN Reason: PAIN SCALE 1-5 Albuterol (Duoneb Neb (Prn)) 1 ampul NEB Q4HR NEB PRN PRN Reason: WHEEZING Last Admin: 03/31/18 08:04 Dose: 1 ampul Artificial Tears (Lacrilube Opth Oint) 1 applicatio EACH EYE Q4H PRN PRN Reason: WHILE ON NMB Aspirin (Aspirin Chew) 81 mg PO DAILY [facility] Last Admin: 03/31/18 08:25 Dose: 81 mg Atorvastatin Calcium (Lipitor) 80 mg PO HS [facility] Last Admin: 03/30/18 21:08 Dose: 80 mg Bisacodyl (Dulcolax Ec) 10 mg PO DAILY PRN PRN Reason: CONSTIPATION Chlorhexidine Gluconate (Peridex 0.12% Oral Kit) 15 ml OROPHARYNG BID@0800, 2000 [facility] Last Admin: 03/31/18 08:25 Dose: 15 ml Docusate Sodium (Colace Liq) 100 mg PO BID [facility] Last Admin: 03/31/18 08:25 Dose: 100 mg Enoxaparin Sodium (Lovenox Inj) 40 mg SQ Q24H [facility] Famotidine (Pepcid Pf Inj) 20 mg IV.PUSH Q12HR [facility] Last Admin: 03/31/18 08:25 Dose: 20 mg Norepinephrine Bitartrate 4 mg (/ Sodium Chloride) 250 mls @ 1.87 mls/hr IV.SIG TITRATE PRN; Protocol PRN Reason: Per Protocol Last Titration: 03/31/18 17:52 Dose: 2 mcg/min, 7.5 mls/hr Magnesium Sulfate 4 gm/ Sodium (Chloride) 100 mls @ 50 mls/hr IV.SIG UNSCH PRN PRN Reason: For Magnesium 0.9 - 1.1 mg/dL Potassium Chloride (Kcl 40 Meq Premix Inj) 40 meq in 100 mls @ 25 mls/hr IV.SIG Q2H PRN PRN Reason: For Potassium 2.8 - 3.2 mEq/L Potassium Chloride (Kcl 20 Meq Premix Inj) 20 meq in 100 mls @ 50 mls/hr IV.SIG Q2H PRN PRN Reason: For Potassium 3.3 - 3.5 mEq/L Potassium Chloride (Kcl 40 Meq Premix Inj) 40 meq in 100 mls @ 25 mls/hr IV.SIG UNSCH PRN PRN Reason: For Potassium 3.3 - 3.5 mEq/L Potassium Chloride (Kcl 20 Meq Premix Inj) 20 meq in 100 mls @ 50 mls/hr IV.SIG Q2H PRN PRN Reason: For Potassium 2.8 - 3.2 mEq/L Potassium Phosphate 30 mmol/ (Sodium Chloride) 260 mls @ 42 mls/hr IV.SIG UNSCH PRN PRN Reason: SEE LABEL COMMENTS Sodium Phosphate 30 mmol/ (Sodium Chloride) 260 mls @ 42 mls/hr IV.SIG UNSCH PRN PRN Reason: For Phosphorus < 2.5 mg/dL Magnesium Sulfate 2 gm/ Sodium (Chloride) 100 mls @ 50 mls/hr IV.SIG UNSCH PRN PRN Reason: For Magnesium 1.2 - 1.6 mg/dL Magnesium Oxide (Mag-Ox) 800 mg PO UNSCH PRN PRN Reason: For Magnesium 1.2 - 1.6 mg/dL Metoclopramide HCl (Reglan Inj) 10 mg IV.PUSH Q6H PRN PRN Reason: NAUSEA OR VOMITING Metoprolol Tartrate (Lopressor) 12.5 mg PO BID [facility] Last Admin: 03/31/18 08:26 Dose: Not Given Miscellaneous Information (Misc Mix All Iv Meds In Ns) 1 each MISCELLANE UNSCH PRN PRN Reason: SEE LABEL COMMENTS Miscellaneous Medication () 1 each OROPHARYNG 0000,0400,1200,1600 [facility] Last Admin: 03/31/18 15:15 Dose: Not Given Ondansetron HCl (Zofran Inj) 4 mg IV.PUSH Q6H PRN PRN Reason: NAUSEA OR VOMITING Potassium Bicarb/Potassium Chloride (K-Lyte Cl Eff) 50 meq PO UNSCH PRN PRN Reason: For Potassium 3.3 - 3.5 mEq/L Potassium Phosphate (K-Phos Original) 2,000 mg PO Q4H PRN PRN Reason: Phosphorus Less Than 2.5 mg/dL Potassium Phosphate (K-Phos Original) 2,000 mg PO UNSCH PRN PRN Reason: SEE LABEL COMMENTS Sodium Bicarbonate (Sodium Bicarbonate 8.4% Inj) 100 meq IV.PUSH NOW [facility] Sodium Chloride (Ns Flush) 2 ml IV.FLUSH BID [facility] Last Admin: 03/31/18 08:25 Dose: 2 ml Sodium Chloride (Ns Flush) 2 ml IV.FLUSH PRN PRN PRN Reason: FLUSH AFTER USING IV ACCESS Terbutaline Sulfate (Brethine Inj) 1 mg SQ UNSCH PRN PRN Reason: For Extravasation Ticagrelor (Brilinta) 90 mg PO BID [facility] Last Admin: 03/31/18 08:25 Dose: 90 mg Allergies Allergy/AdvReac Type Severity Reaction Status Date / Time No Allergy Information Allergy Verified 03/29/18 11:38 Available Home Medications Medication Instructions Recorded Confirmed Type Unable to Obtain Home Meds 03/29/18 03/29/18 History Physical Exam Vital signs: Vital Signs 03/30/18 20:00 03/30/18 20:19 03/30/18 22:00 Temperature 94.1 F L Pulse Rate 87 95 H Respiratory Rate 16 16 Blood Pressure 101/67 Pulse Oximetry 100 100 03/30/18 23:55 03/31/18 00:00 03/31/18 02:00 Temperature 96.6 F L Pulse Rate 108 H 110 H Respiratory Rate 16 16 Blood Pressure 86/51 L Pulse Oximetry 99 100 03/31/18 04:00 03/31/18 06:00 03/31/18 07:59 Temperature 96.8 F L Pulse Rate 101 H 101 H 10 L Respiratory Rate 16 23 Blood Pressure 94/59 L Pulse Oximetry 100 92 L 03/31/18 08:00 03/31/18 10:00 03/31/18 12:00 Temperature 97.0 F L 98.6 F Pulse Rate 100 H 110 H 112 H Respiratory Rate 23 18 Blood Pressure 94/59 L 93/56 L Pulse Oximetry 95 97 03/31/18 13:30 03/31/18 14:00 03/31/18 16:00 Temperature 98.4 F Pulse Rate 124 H 117 H Respiratory Rate 15 Blood Pressure 91/51 L Pulse Oximetry 96 98 03/31/18 17:57 Temperature Pulse Rate 110 H Respiratory Rate Blood Pressure Pulse Oximetry Intake & Output 03/31/18 03/31/18 04/01/18 06:59 18:59 06:59 Intake Total 710 / 710 801 / 801 Output Total 250 / 250 500 / 500 Balance 460 / 460 301 / 301 Weight 72 kg Intake: IV 650 / 650 711 / 711 Sodium Bicarbonate 8.4% Inj 100 100 / 100 ML @ 0 mls/hr .ROUTE .STK-MED ONE Rx#:[id number] Nimbex Inj 100 MG In NS Inj 240 100 / 100 100 / 100 ML @ 3.3 MCG/KG/MIN 38.16 mls/ hr IV.CONT TITRATE PRN Rx#: [id number] Versed Inj 50 mg In 50 ml @ 2 50 / 50 30 / 30 MG/HR 2 mls/hr IV.CONT TITRATE PRN Rx#:[id number] Diprivan 1000 mg/100 ml Inj 1, 1 / 1 000 mg In 100 ml @ 5 MCG/KG/MIN 2.16 mls/hr IV.CONT TITRATE PRN Rx#:[id number] Ofirmev Inj 1,000 mg In 100 ml 100 / 100 @ 400 mls/hr IV.SIG NOW ONE Rx# :[id number] Magnesium Sulfate Inj 2 GM In 100 / 100 NS Inj 96 ML @ 50 mls/hr IV.SIG ONCE ONE Rx#:[id number] Levophed Inj 4 MG In NS Inj 246 250 / 250 ML @ 0.5 MCG/MIN 1.87 mls/hr IV.SIG TITRATE PRN Rx#:[id number] NS Inj 250 ML @ Wide Open IV. 250 / 250 0 / 0 SIG BOLUS OMAR Rx#:[id number] fentaNYL 10 mcg/mL Premix Drip 280 / 280 2,500 mcg In 250 ml @ 50 MCG/HR 5 mls/hr IV.SIG TITRATE PRN Rx #:[id number] Oral 30 / 30 Water Bolus Amount 60 / 60 60 / 60 Output: Urine Amount (Catheter) 150 / 150 500 / 500 Indwelling Temp Sensing 150 / 150 500 / 500 Catheter Gastric Drainage 100 / 100 Oral 100 / 100 Other: Date of Last Bowel Movement 03/28/18 03/28/18 Narrative: GENERAL: NAD, mildly drowsy SKIN: Warm and dry. HEAD: Atraumatic. Normocephalic. EYES: Pupils equal and round. No scleral icterus. No injection or drainage. ENT: No nasal bleeding or discharge. Mucous membranes pink and moist. Tongue with ecchymosis most likely from biting it NECK: Trachea midline. No JVD. CARDIOVASCULAR: Regular rhythm, mildly tachycardic RESPIRATORY: No accessory muscle use. Clear to auscultation. Breath sounds equal bilaterally. GASTROINTESTINAL: Abdomen soft, non-tender, nondistended. Hepatic and splenic margins not palpable. MUSCULOSKELETAL: Extremities without clubbing, cyanosis, or edema. No obvious deformities. NEUROLOGICAL: Awake and alert. No obvious cranial nerve deficits. Motor grossly within normal limits. Five out of 5 muscle strength in the arms and legs. Normal speech. - Urinary Catheter Management Indwelling Temp Sensing Catheter Cath placed during this visit: yes Reason for continuing: Hourly intake/output Insertion date: 03/29/18 Insertion time: 15:00 Results 03/31/18 03:30 03/31/18 03:30 Cardiac Enzymes 03/29/18 03/30/18 Range/Units 20:08 04:30 AST 54 H (15-37) U/L Troponin I 9.96 H* 13.30 H* (0.02-0.05) ng/mL CBC 03/30/18 03/31/18 Range/Units 04:30 03:30 WBC 9.5 12.1 H (4.0-11.0) th/mm3 RBC 3.52 L 3.14 L (4.50-5.90) mil/mm3 Hgb 11.6 L 10.2 L (13.0-17.0) gm/dL Hct 33.9 L 31.2 L (39.0-51.0) % Plt Count 170 157 (150-450) th/mm3 Neut # (Auto) 8.1 H (1.8-7.7) th/mm3 Lymph # (Auto) 0.8 L (1.0-4.8) th/mm3 [place] # (Auto) 0.5 (0.0-0.9) th/mm3 Eos # (Auto) 0.0 (0.0-0.4) th/mm3 Baso # (Auto) 0.0 (0.0-0.2) th/mm3 Comprehensive Metabolic Panel 03/30/18 03/30/18 03/31/18 Range/Units 04:30 20:45 03:30 Sodium 134 L 134 L 138 (136-145) meq/L Potassium 4.6 4.6 4.9 (3.5-5.1) meq/L Chloride 102 103 105 (98-107) meq/L Carbon Dioxide 20.9 L 19.8 L 19.5 L (21.0-32.0) meq/L BUN 16 15 16 (7-18) mg/dL Creatinine 1.25 1.03 1.17 (0.60-1.30) mg/dL Calcium 7.3 L* D 7.5 L 8.0 L (8.5-10.1) mg/dL Direct Bilirubin 0.2 (0.0-0.2) mg/dL Indirect Bilirubin 0.3 (0.0-0.8) mg/dL AST 54 H (15-37) U/L ALT 22 (12-78) U/L Alkaline Phosphatase 93 (45-117) U/L Total Protein 5.6 L (6.4-8.2) g/dL Albumin 2.7 L (3.4-5.0) g/dL Intake and Output 03/31/18 03/31/18 03/31/18 06:59 14:59 22:59 Intake Total 710 / 710 611 / 611 190 / 190 Output Total 250 / 250 500 / 500 Balance 460 / 460 611 / 611 -310 / -310 Intake: IV 650 / 650 611 / 611 100 / 100 Sodium Bicarbonate 8.4% Inj 100 100 / 100 ML @ 0 mls/hr .ROUTE .STK-MED ONE Rx#:[id number] Nimbex Inj 100 MG In NS Inj 240 100 / 100 100 / 100 ML @ 3.3 MCG/KG/MIN 38.16 mls/ hr IV.CONT TITRATE PRN Rx#: [id number] Versed Inj 50 mg In 50 ml @ 2 50 / 50 30 / 30 MG/HR 2 mls/hr IV.CONT TITRATE PRN Rx#:[id number] Diprivan 1000 mg/100 ml Inj 1, 1 / 1 000 mg In 100 ml @ 5 MCG/KG/MIN 2.16 mls/hr IV.CONT TITRATE PRN Rx#:[id number] Ofirmev Inj 1,000 mg In 100 ml 100 / 100 @ 400 mls/hr IV.SIG NOW ONE Rx# :[id number] Magnesium Sulfate Inj 2 GM In 100 / 100 NS Inj 96 ML @ 50 mls/hr IV.SIG ONCE ONE Rx#:[id number] Levophed Inj 4 MG In NS Inj 246 250 / 250 ML @ 0.5 MCG/MIN 1.87 mls/hr IV.SIG TITRATE PRN Rx#:[id number] NS Inj 250 ML @ Wide Open IV. 250 / 250 0 / 0 SIG BOLUS OMAR Rx#:[id number] fentaNYL 10 mcg/mL Premix Drip 280 / 280 2,500 mcg In 250 ml @ 50 MCG/HR 5 mls/hr IV.SIG TITRATE PRN Rx #:[id number] Oral 30 / 30 Water Bolus Amount 60 / 60 60 / 60 Output: Urine Amount (Catheter) 150 / 150 500 / 500 Indwelling Temp Sensing 150 / 150 500 / 500 Catheter Gastric Drainage 100 / 100 Oral 100 / 100 Other: Date of Last Bowel Movement 03/28/18 03/28/18 03/28/18 Weight 72 kg - Imaging and Cardiology Imaging: Impressions Abdomen X-Ray 03/31/18 15:51 CONCLUSION: Dobbhoff tube in the stomach. Assessment and Plan - Assessment (1) ST elevation myocardial infarction (STEMI) Code(s): I21.3 - ST elevation (STEMI) myocardial infarction of unspecified site Status: Acute (2) Acute respiratory failure Code(s): J96.00 - Acute respiratory failure, unspecified whether with hypoxia or hypercapnia Status: Acute (3) History of permanent cardiac pacemaker placement Code(s): Z95.0 - Presence of cardiac pacemaker Status: Acute (4) Cardiac arrest with ventricular fibrillation Code(s): I46.9 - Cardiac arrest, cause unspecified; I49.01 - Ventricular fibrillation Status: Acute (5) History of coronary artery stent placement Code(s): Z95.5 - Presence of coronary angioplasty implant and graft Status: Acute (6) Hyperlipidemia Code(s): E78.5 - Hyperlipidemia, unspecified Status: Acute (7) Hypertension Code(s): I10 - Essential (primary) hypertension Status: Acute - Plan 1) Vfib arrest Most likely due to coronary dissection 2) Inferior STEMI with coronary dissection s/p KAILA to RCA Significant spasm in multiple vessels due to Vfib arrest/ischemia ASA/Brilinta/Statin BB/MAKSIM-I on hold due to hypotension 3) Encephalopathy Post cardiac arrest, hypothermia, and rewarming 4) Hypothermia protocol completed 5) PPM interrogated 11 mins of ventricular fibrillation No other events 6) asked about defibrillator placement Vfib arrest due to inferior STEMI with RCA dissection Would not consider him a candidate as area of concern fixed (1) ST elevation myocardial infarction (STEMI) Qualifiers: Involved coronary artery: unspecified coronary artery Qualified Code(s): I21.3 - ST elevation (STEMI) myocardial infarction of unspecified site
[2018-04-01] MEDS ORDERED: Morphine Inj 4 MG/ML Vial IV.PUSH PRN ×2 (00:01→00:02)
[2018-04-01] MEDS: Metoprolol Tartrate 25 MG Tablet PO SCH ×3 (00:52→20:21)
[2018-04-01] MEDS: Docusate Sodium Liq 100 MG/10 ML UDC PO SCH ×3 (00:53→23:50)
[2018-04-01] MEDS: Famotidine PF Inj 20 MG/2 ML Vial IV.PUSH SCH ×2 (00:53→09:51)
[2018-04-01] MEDS: Oral Hygiene Kit OROPHARYNG SCH ×4 (00:53→15:55)
--- NOTE | 2018-04-01 00:57 | XR ---
EXAM DATE: 04/01/2018 12:54 AM EDT AGE/SEX: 63 years / Male INDICATIONS: Dobbhoff tube placement. CLINICAL DATA: This is the patient's initial encounter. Patient reports that signs and symptoms have been present for 1 day and indicates a pain score of 0/10. MEDICAL/SURGICAL HISTORY: None. None. [place] [facility] [place]. . FINDINGS: Dobbhoff tube is coiled within the stomach. No dilated loops of small or large bowel failure. The vis ualized lower lungs are clear. CONCLUSION: Dobbhoff tube in the stomach. Electronically signed by: Grayson Little MD 04/01/2018 12:56 AM EDT
--- NOTE | 2018-04-01 09:50 | P.PNCA ---
Subjective Interval history: PT without complaints Medications and Allergies Active Medications: Active Medications Acetaminophen (Tylenol Liq) 650 mg NG/OG Q6H PRN PRN Reason: SHIVERING Acetaminophen (Tylenol Liq) 650 mg PO Q6H PRN PRN Reason: PAIN SCALE 1-5 Last Admin: 04/01/18 05:08 Dose: 650 mg Hydrocodone Bitart/Acetaminophen ([place] 7.5/325) 1 tab NG/OG Q4H PRN PRN Reason: pain Albuterol (Duoneb Neb (Prn)) 1 ampul NEB Q4HR NEB PRN PRN Reason: WHEEZING Last Admin: 03/31/18 08:04 Dose: 1 ampul Artificial Tears (Lacrilube Opth Oint) 1 applicatio EACH EYE Q4H PRN PRN Reason: WHILE ON NMB Aspirin (Aspirin Chew) 81 mg PO DAILY [facility] Last Admin: 03/31/18 08:25 Dose: 81 mg Atorvastatin Calcium (Lipitor) 80 mg PO HS [facility] Last Admin: 04/01/18 00:52 Dose: 80 mg Bisacodyl (Dulcolax Ec) 10 mg PO DAILY PRN PRN Reason: CONSTIPATION Chlorhexidine Gluconate (Peridex 0.12% Oral Kit) 15 ml OROPHARYNG BID@0800, 2000 [facility] Last Admin: 03/31/18 20:55 Dose: 15 ml Docusate Sodium (Colace Liq) 100 mg PO BID [facility] Last Admin: 04/01/18 00:53 Dose: 100 mg Enoxaparin Sodium (Lovenox Inj) 40 mg SQ Q24H OMAR Famotidine (Pepcid Pf Inj) 20 mg IV.PUSH Q12HR [facility] Last Admin: 04/01/18 00:53 Dose: 20 mg Norepinephrine Bitartrate 4 mg (/ Sodium Chloride) 250 mls @ 1.87 mls/hr IV.SIG TITRATE PRN; Protocol PRN Reason: Per Protocol Last Admin: 03/31/18 19:53 Dose: 2 mcg/min, 7.5 mls/hr Magnesium Sulfate 4 gm/ Sodium (Chloride) 100 mls @ 50 mls/hr IV.SIG UNSCH PRN PRN Reason: For Magnesium 0.9 - 1.1 mg/dL Potassium Chloride (Kcl 40 Meq Premix Inj) 40 meq in 100 mls @ 25 mls/hr IV.SIG Q2H PRN PRN Reason: For Potassium 2.8 - 3.2 mEq/L Potassium Chloride (Kcl 20 Meq Premix Inj) 20 meq in 100 mls @ 50 mls/hr IV.SIG Q2H PRN PRN Reason: For Potassium 3.3 - 3.5 mEq/L Potassium Chloride (Kcl 40 Meq Premix Inj) 40 meq in 100 mls @ 25 mls/hr IV.SIG UNSCH PRN PRN Reason: For Potassium 3.3 - 3.5 mEq/L Potassium Chloride (Kcl 20 Meq Premix Inj) 20 meq in 100 mls @ 50 mls/hr IV.SIG Q2H PRN PRN Reason: For Potassium 2.8 - 3.2 mEq/L Potassium Phosphate 30 mmol/ (Sodium Chloride) 260 mls @ 42 mls/hr IV.SIG UNSCH PRN PRN Reason: SEE LABEL COMMENTS Sodium Phosphate 30 mmol/ (Sodium Chloride) 260 mls @ 42 mls/hr IV.SIG UNSCH PRN PRN Reason: For Phosphorus < 2.5 mg/dL Magnesium Sulfate 2 gm/ Sodium (Chloride) 100 mls @ 50 mls/hr IV.SIG UNSCH PRN PRN Reason: For Magnesium 1.2 - 1.6 mg/dL Magnesium Oxide (Mag-Ox) 800 mg PO UNSCH PRN PRN Reason: For Magnesium 1.2 - 1.6 mg/dL Metoclopramide HCl (Reglan Inj) 10 mg IV.PUSH Q6H PRN PRN Reason: NAUSEA OR VOMITING Metoprolol Tartrate (Lopressor) 12.5 mg PO BID [facility] Last Admin: 04/01/18 00:52 Dose: 12.5 mg Miscellaneous Information (Misc Mix All Iv Meds In Ns) 1 each MISCELLANE UNSCH PRN PRN Reason: SEE LABEL COMMENTS Miscellaneous Medication () 1 each OROPHARYNG 0000,0400,1200,1600 [facility] Last Admin: 04/01/18 04:51 Dose: Not Given Morphine Sulfate (Morphine Inj) 2 mg IV.PUSH Q3H PRN PRN Reason: mild breakthrough pain Last Admin: 04/01/18 00:33 Dose: 2 mg Morphine Sulfate (Morphine Inj) 4 mg IV.PUSH Q3H PRN PRN Reason: mod/severe breakthrough pain Ondansetron HCl (Zofran Inj) 4 mg IV.PUSH Q6H PRN PRN Reason: NAUSEA OR VOMITING Potassium Bicarb/Potassium Chloride (K-Lyte Cl Eff) 50 meq PO UNSCH PRN PRN Reason: For Potassium 3.3 - 3.5 mEq/L Potassium Phosphate (K-Phos Original) 2,000 mg PO Q4H PRN PRN Reason: Phosphorus Less Than 2.5 mg/dL Potassium Phosphate (K-Phos Original) 2,000 mg PO UNSCH PRN PRN Reason: SEE LABEL COMMENTS Sodium Bicarbonate (Sodium Bicarbonate 8.4% Inj) 100 meq IV.PUSH NOW [facility] Sodium Chloride (Ns Flush) 2 ml IV.FLUSH BID [facility] Last Admin: 04/01/18 00:53 Dose: 2 ml Sodium Chloride (Ns Flush) 2 ml IV.FLUSH PRN PRN PRN Reason: FLUSH AFTER USING IV ACCESS Terbutaline Sulfate (Brethine Inj) 1 mg SQ UNSCH PRN PRN Reason: For Extravasation Ticagrelor (Brilinta) 90 mg PO BID [facility] Last Admin: 04/01/18 00:53 Dose: 90 mg Allergies Allergy/AdvReac Type Severity Reaction Status Date / Time No Allergy Information Allergy Verified 03/29/18 11:38 Available Home Medications Medication Instructions Recorded Confirmed Type Unable to Obtain Home Meds 03/29/18 03/29/18 History Physical Exam Vital signs: Vital Signs 03/31/18 10:00 03/31/18 12:00 03/31/18 13:30 Temperature 98.6 F Pulse Rate 110 H 112 H Respiratory Rate 18 Blood Pressure 93/56 L Pulse Oximetry 97 96 03/31/18 14:00 03/31/18 16:00 03/31/18 16:15 Temperature 98.4 F 98.2 F Pulse Rate 124 H 117 H 122 H Respiratory Rate 15 21 Blood Pressure 91/51 L 92/53 L Pulse Oximetry 98 97 03/31/18 16:30 03/31/18 16:45 03/31/18 17:00 Temperature 98.4 F 98.2 F 98.2 F Pulse Rate 124 H 115 H 111 H Respiratory Rate 25 H 15 13 Blood Pressure 90/51 L 86/52 L 85/57 L Pulse Oximetry 97 96 98 03/31/18 17:15 03/31/18 17:30 03/31/18 17:45 Temperature 98.4 F 98.4 F 98.2 F Pulse Rate 111 H 110 H 108 H Respiratory Rate 13 15 14 Blood Pressure 95/59 L 83/52 L 86/51 L Pulse Oximetry 99 97 98 03/31/18 17:57 03/31/18 18:00 03/31/18 18:15 Temperature 98.2 F 98.4 F Pulse Rate 110 H 108 H 109 H Respiratory Rate 14 15 Blood Pressure 92/55 L 84/53 L Pulse Oximetry 98 98 03/31/18 18:31 03/31/18 18:45 03/31/18 19:00 Temperature 98.4 F 98.4 F 98.4 F Pulse Rate 113 H 122 H 111 H Respiratory Rate 29 H 20 16 Blood Pressure 79/63 L 88/56 L 87/52 L Pulse Oximetry 98 98 97 03/31/18 19:15 03/31/18 19:30 03/31/18 19:45 Temperature 98.4 F 98.4 F 98.4 F Pulse Rate 121 H 125 H 111 H Respiratory Rate 21 25 H 20 Blood Pressure 102/55 L 101/59 L 80/50 L Pulse Oximetry 98 96 98 03/31/18 19:51 03/31/18 20:00 03/31/18 21:00 Temperature 98.4 F 98.4 F 98.4 F Pulse Rate 125 H 128 H 128 H Respiratory Rate 28 H 29 H 23 Blood Pressure 103/65 Pulse Oximetry 98 97 99 03/31/18 21:14 03/31/18 21:15 03/31/18 21:30 Temperature 98.4 F 98.4 F 98.4 F Pulse Rate 125 H 126 H 127 H Respiratory Rate 21 22 27 H Blood Pressure 104/57 L 90/59 L 96/62 L Pulse Oximetry 98 98 99 03/31/18 21:45 03/31/18 22:00 03/31/18 22:09 Temperature 98.6 F 98.4 F Pulse Rate 119 H 113 H Respiratory Rate 20 17 Blood Pressure 88/56 L 86/56 L Pulse Oximetry 98 99 98 03/31/18 22:16 03/31/18 22:30 03/31/18 22:45 Temperature 98.4 F 98.6 F 98.4 F Pulse Rate 132 H 127 H 126 H Respiratory Rate 30 H 21 21 Blood Pressure 119/62 110/53 L 109/60 Pulse Oximetry 97 97 95 03/31/18 23:00 03/31/18 23:19 03/31/18 23:30 Temperature 98.4 F 98.1 F 98.1 F Pulse Rate 127 H 133 H 118 H Respiratory Rate 15 22 18 Blood Pressure 117/59 L 111/68 95/56 L Pulse Oximetry 97 97 99 03/31/18 23:45 04/01/18 00:00 04/01/18 00:15 Temperature 97.9 F 97.7 F 97.9 F Pulse Rate 127 H 102 H 128 H Respiratory Rate 31 H 32 H 34 H Blood Pressure 113/61 117/59 L 106/65 Pulse Oximetry 98 96 99 04/01/18 00:30 04/01/18 00:36 04/01/18 00:45 Temperature 97.5 F L 97.3 F L Pulse Rate 134 H 130 H Respiratory Rate 20 19 Blood Pressure 138/82 109/60 Pulse Oximetry 98 98 98 04/01/18 01:00 04/01/18 01:15 04/01/18 01:37 Temperature 97.3 F L 97.2 F L 96.4 F L Pulse Rate 129 H 138 H 128 H Respiratory Rate 22 25 H 24 Blood Pressure 123/63 111/83 105/57 L Pulse Oximetry 100 97 100 04/01/18 01:47 04/01/18 02:00 04/01/18 02:15 Temperature 94.8 F L 98.4 F 98.4 F Pulse Rate 127 H 127 H 124 H Respiratory Rate 17 33 H 24 Blood Pressure 106/59 L 106/61 103/61 Pulse Oximetry 98 99 100 04/01/18 02:30 04/01/18 02:45 04/01/18 03:00 Temperature 98.4 F 98.4 F 98.4 F Pulse Rate 123 H 109 H 106 H Respiratory Rate 27 H 21 21 Blood Pressure 101/64 92/56 L 92/53 L Pulse Oximetry 99 100 100 04/01/18 03:15 04/01/18 03:30 04/01/18 03:45 Temperature 98.4 F 98.4 F 98.4 F Pulse Rate 105 H 104 H 102 H Respiratory Rate 18 23 25 H Blood Pressure 98/56 L 94/54 L 93/56 L Pulse Oximetry 100 100 100 04/01/18 04:00 04/01/18 04:15 04/01/18 04:30 Temperature 98.4 F 98.4 F 98.4 F Pulse Rate 114 H 105 H 109 H Respiratory Rate 29 H 18 16 Blood Pressure 90/55 L 93/54 L 91/56 L Pulse Oximetry 97 99 99 04/01/18 04:45 04/01/18 06:00 Temperature 98.4 F Pulse Rate 105 H 102 H Respiratory Rate 22 Blood Pressure 90/53 L Pulse Oximetry 99 Intake & Output 03/31/18 04/01/18 04/01/18 18:59 06:59 18:59 Intake Total 801 / 801 310 / 310 Output Total 500 / 500 500 / 500 Balance 301 / 301 -190 / -190 Weight 72 kg Intake: IV 711 / 711 250 / 250 Sodium Bicarbonate 8.4% Inj 100 100 / 100 ML @ 0 mls/hr .ROUTE .STK-MED ONE Rx#:[id number] Nimbex Inj 100 MG In NS Inj 240 100 / 100 ML @ 3.3 MCG/KG/MIN 38.16 mls/ hr IV.CONT TITRATE PRN Rx#: [id number] Versed Inj 50 mg In 50 ml @ 2 30 / 30 MG/HR 2 mls/hr IV.CONT TITRATE PRN Rx#:[id number] Diprivan 1000 mg/100 ml Inj 1, 1 / 1 000 mg In 100 ml @ 5 MCG/KG/MIN 2.16 mls/hr IV.CONT TITRATE PRN Rx#:[id number] Ofirmev Inj 1,000 mg In 100 ml 100 / 100 @ 400 mls/hr IV.SIG NOW ONE Rx# :[id number] Magnesium Sulfate Inj 2 GM In 100 / 100 NS Inj 96 ML @ 50 mls/hr IV.SIG ONCE ONE Rx#:[id number] Levophed Inj 4 MG In NS Inj 246 250 / 250 ML @ 0.5 MCG/MIN 1.87 mls/hr IV.SIG TITRATE PRN Rx#:[id number] NS Inj 250 ML @ Wide Open IV. 0 / 0 SIG BOLUS OMAR Rx#:[id number] fentaNYL 10 mcg/mL Premix Drip 280 / 280 2,500 mcg In 250 ml @ 50 MCG/HR 5 mls/hr IV.SIG TITRATE PRN Rx #:[id number] Oral 30 / 30 Water Bolus Amount 60 / 60 60 / 60 Output: Urine Amount (Catheter) 500 / 500 500 / 500 Indwelling Temp Sensing 500 / 500 500 / 500 Catheter Other: Date of Last Bowel Movement 03/28/18 03/28/18 # Bowel Movements 0 - Routine Neck Exam Comments: no JVD - Routine Respiratory Exam Present: CTA bilaterally - Routine Cardiovascular Exam Present: tachycardia - Routine Abdominal Exam Present: soft - Urinary Catheter Management Indwelling Temp Sensing Catheter Cath placed during this visit: yes Reason for continuing: Hourly intake/output Insertion date: 03/29/18 Insertion time: 15:00 Results 03/31/18 03:30 03/31/18 03:30 CBC 03/31/18 Range/Units 03:30 WBC 12.1 H (4.0-11.0) th/mm3 RBC 3.14 L (4.50-5.90) mil/mm3 Hgb 10.2 L (13.0-17.0) gm/dL Hct 31.2 L (39.0-51.0) % Plt Count 157 (150-450) th/mm3 Comprehensive Metabolic Panel 03/30/18 03/31/18 Range/Units 20:45 03:30 Sodium 134 L 138 (136-145) meq/L Potassium 4.6 4.9 (3.5-5.1) meq/L Chloride 103 105 (98-107) meq/L Carbon Dioxide 19.8 L 19.5 L (21.0-32.0) meq/L BUN 15 16 (7-18) mg/dL Creatinine 1.03 1.17 (0.60-1.30) mg/dL Calcium 7.5 L 8.0 L (8.5-10.1) mg/dL Intake and Output 03/31/18 04/01/18 04/01/18 22:59 06:59 14:59 Intake Total 440 / 440 60 / 60 Output Total 500 / 500 500 / 500 Balance -60 / -60 -440 / -440 Intake: IV 350 / 350 Ofirmev Inj 1,000 mg In 100 ml 100 / 100 @ 400 mls/hr IV.SIG NOW ONE Rx# :[id number] Levophed Inj 4 MG In NS Inj 246 250 / 250 ML @ 0.5 MCG/MIN 1.87 mls/hr IV.SIG TITRATE PRN Rx#:[id number] Oral 30 / 30 Water Bolus Amount 60 / 60 60 / 60 Output: Urine Amount (Catheter) 500 / 500 500 / 500 Indwelling Temp Sensing 500 / 500 500 / 500 Catheter Other: Date of Last Bowel Movement 03/28/18 03/28/18 # Bowel Movements 0 Weight 72 kg - Imaging and Cardiology Imaging: Impressions Abdomen X-Ray 03/31/18 15:51 CONCLUSION: Dobbhoff tube in the stomach. Abdomen X-Ray 04/01/18 00:00 CONCLUSION: Dobbhoff tube in the stomach. Assessment and Plan - Assessment (1) ST elevation myocardial infarction (STEMI) Code(s): I21.3 - ST elevation (STEMI) myocardial infarction of unspecified site Status: Acute Plan: stable and doing well: off vent, will try for OOB to chair today. Consider BB if BP holds up off pressors. (2) Acute respiratory failure Code(s): J96.00 - Acute respiratory failure, unspecified whether with hypoxia or hypercapnia Status: Acute (3) History of permanent cardiac pacemaker placement Code(s): Z95.0 - Presence of cardiac pacemaker Status: Acute (4) Cardiac arrest with ventricular fibrillation Code(s): I46.9 - Cardiac arrest, cause unspecified; I49.01 - Ventricular fibrillation Status: Acute (5) History of coronary artery stent placement Code(s): Z95.5 - Presence of coronary angioplasty implant and graft Status: Acute (6) Hyperlipidemia Code(s): E78.5 - Hyperlipidemia, unspecified Status: Acute (7) Hypertension Code(s): I10 - Essential (primary) hypertension Status: Acute - Plan 1) Vfib arrest Most likely due to coronary dissection 2) Inferior STEMI with coronary dissection s/p KAILA to RCA Significant spasm in multiple vessels due to Vfib arrest/ischemia ASA/Brilinta/Statin BB/MAKSIM-I on hold due to hypotension 3) Encephalopathy Post cardiac arrest, hypothermia, and rewarming 4) Hypothermia protocol completed 5) PPM interrogated 11 mins of ventricular fibrillation No other events 6) asked about defibrillator placement Vfib arrest due to inferior STEMI with RCA dissection Would not consider him a candidate as area of concern fixed (1) ST elevation myocardial infarction (STEMI) Qualifiers: Involved coronary artery: unspecified coronary artery Qualified Code(s): I21.3 - ST elevation (STEMI) myocardial infarction of unspecified site
[2018-04-01] MEDS: Chlorhexidine 0.12% Oral Kit 15 ML UDC OROPHARYNG SCH ×2 (09:52→23:14)
[2018-04-01] MEDS ORDERED: Morphine Sulfate Inj 2 MG/ML Vial IV.PUSH PRN (15:49)
--- NOTE | 2018-04-01 15:53 | P.PNCC ---
Subjective Subjective Remarks/Hospital Course: Patient is a 63-year-old male who presents the emergency room via EMS for STEMI alert. As per EMS, patient was with a girlfriend and reported to her that he was not feeling well. He had a syncopal episode. Apparently, patient did not hit his head on the floor, he was lowered to the floor. Patient did lose pulses , bystanders started CPR. When EMS arrived on scene, patient was found to be in V. fib arrest, he was shocked once at 150 and return to pulses. Patient was found to have ST segment elevations in leads II, III, aVF with reciprocal changes. Patient presents the emergency room obtunded, patient unable to provide any HPI. Per ER documentation GCS was 3 following return of spontaneous circulation. Patient was intubated in ER and placed on mechanical ventilation. STEMI alert was called and patient was evaluated by Dr. 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 RCA stenting performed at site of dissection. Patient was started on Versed and fentanyl during cardiac catheterization as he appeared to be gagging and fighting the ventilator. Following procedure he was transferred to [facility] where I evaluated him following his arrival. I personally spoke with Dr. Kline and confirmed GCS 3 on her evaluation following patient's arrival to the ER. Decision was made to initiate hypothermia protocol. I spoke with patient's and son at bedside and they agreed to proceed with Quatro catheter placement and initiation of therapeutic hypothermia. According to patient's he was down for about 5 minutes before EMS arrival and being shocked. He was given bystander CPR by family immediately on going down. 03/30: at target temperature. on low-dose vasopressors intermittently. uop marginal but adequate, likely due to hypothermia. trop increasing still, but no other evidence of coronary ischemia. 03/31: rewarmed. following commands. still on levophed. organ function stable. Subjective 04/01: Off norepinephrine. Quattro catheter has been removed. Very weak. Nasogastric tube remains in place. Follows commands. Objective Vital Signs / I&O: Vital Signs 03/31/18 16:00 03/31/18 16:15 03/31/18 16:30 Temperature 98.4 F 98.2 F 98.4 F Pulse Rate 117 H 122 H 124 H Respiratory Rate 15 21 25 H Blood Pressure 91/51 L 92/53 L 90/51 L Pulse Oximetry 98 97 97 03/31/18 16:45 03/31/18 17:00 03/31/18 17:15 Temperature 98.2 F 98.2 F 98.4 F Pulse Rate 115 H 111 H 111 H Respiratory Rate 15 13 13 Blood Pressure 86/52 L 85/57 L 95/59 L Pulse Oximetry 96 98 99 03/31/18 17:30 03/31/18 17:45 03/31/18 17:57 Temperature 98.4 F 98.2 F Pulse Rate 110 H 108 H 110 H Respiratory Rate 15 14 Blood Pressure 83/52 L 86/51 L Pulse Oximetry 97 98 03/31/18 18:00 03/31/18 18:15 03/31/18 18:31 Temperature 98.2 F 98.4 F 98.4 F Pulse Rate 108 H 109 H 113 H Respiratory Rate 14 15 29 H Blood Pressure 92/55 L 84/53 L 79/63 L Pulse Oximetry 98 98 98 03/31/18 18:45 03/31/18 19:00 03/31/18 19:15 Temperature 98.4 F 98.4 F 98.4 F Pulse Rate 122 H 111 H 121 H Respiratory Rate 20 16 21 Blood Pressure 88/56 L 87/52 L 102/55 L Pulse Oximetry 98 97 98 03/31/18 19:30 03/31/18 19:45 03/31/18 19:51 Temperature 98.4 F 98.4 F 98.4 F Pulse Rate 125 H 111 H 125 H Respiratory Rate 25 H 20 28 H Blood Pressure 101/59 L 80/50 L 103/65 Pulse Oximetry 96 98 98 03/31/18 20:00 03/31/18 21:00 03/31/18 21:14 Temperature 98.4 F 98.4 F 98.4 F Pulse Rate 128 H 128 H 125 H Respiratory Rate 29 H 23 21 Blood Pressure 104/57 L Pulse Oximetry 97 99 98 03/31/18 21:15 03/31/18 21:30 03/31/18 21:45 Temperature 98.4 F 98.4 F 98.6 F Pulse Rate 126 H 127 H 119 H Respiratory Rate 22 27 H 20 Blood Pressure 90/59 L 96/62 L 88/56 L Pulse Oximetry 98 99 98 03/31/18 22:00 03/31/18 22:09 03/31/18 22:16 Temperature 98.4 F 98.4 F Pulse Rate 113 H 132 H Respiratory Rate 17 30 H Blood Pressure 86/56 L 119/62 Pulse Oximetry 99 98 97 03/31/18 22:30 03/31/18 22:45 03/31/18 23:00 Temperature 98.6 F 98.4 F 98.4 F Pulse Rate 127 H 126 H 127 H Respiratory Rate 21 21 15 Blood Pressure 110/53 L 109/60 117/59 L Pulse Oximetry 97 95 97 03/31/18 23:19 03/31/18 23:30 03/31/18 23:45 Temperature 98.1 F 98.1 F 97.9 F Pulse Rate 133 H 118 H 127 H Respiratory Rate 22 18 31 H Blood Pressure 111/68 95/56 L 113/61 Pulse Oximetry 97 99 98 04/01/18 00:00 04/01/18 00:15 04/01/18 00:30 Temperature 97.7 F 97.9 F 97.5 F L Pulse Rate 102 H 128 H 134 H Respiratory Rate 32 H 34 H 20 Blood Pressure 117/59 L 106/65 138/82 Pulse Oximetry 96 99 98 04/01/18 00:36 04/01/18 00:45 04/01/18 01:00 Temperature 97.3 F L 97.3 F L Pulse Rate 130 H 129 H Respiratory Rate 19 22 Blood Pressure 109/60 123/63 Pulse Oximetry 98 98 100 04/01/18 01:15 04/01/18 01:37 04/01/18 01:47 Temperature 97.2 F L 96.4 F L 94.8 F L Pulse Rate 138 H 128 H 127 H Respiratory Rate 25 H 24 17 Blood Pressure 111/83 105/57 L 106/59 L Pulse Oximetry 97 100 98 04/01/18 02:00 04/01/18 02:15 04/01/18 02:30 Temperature 98.4 F 98.4 F 98.4 F Pulse Rate 127 H 124 H 123 H Respiratory Rate 33 H 24 27 H Blood Pressure 106/61 103/61 101/64 Pulse Oximetry 99 100 99 04/01/18 02:45 04/01/18 03:00 04/01/18 03:15 Temperature 98.4 F 98.4 F 98.4 F Pulse Rate 109 H 106 H 105 H Respiratory Rate 21 21 18 Blood Pressure 92/56 L 92/53 L 98/56 L Pulse Oximetry 100 100 100 04/01/18 03:30 04/01/18 03:45 04/01/18 04:00 Temperature 98.4 F 98.4 F 98.4 F Pulse Rate 104 H 102 H 114 H Respiratory Rate 23 25 H 29 H Blood Pressure 94/54 L 93/56 L 90/55 L Pulse Oximetry 100 100 97 04/01/18 04:15 04/01/18 04:30 04/01/18 04:45 Temperature 98.4 F 98.4 F 98.4 F Pulse Rate 105 H 109 H 105 H Respiratory Rate 18 16 22 Blood Pressure 93/54 L 91/56 L 90/53 L Pulse Oximetry 99 99 99 04/01/18 06:00 Temperature Pulse Rate 102 H Respiratory Rate Blood Pressure Pulse Oximetry Intake & Output 03/31/18 04/01/18 04/01/18 18:59 06:59 18:59 Intake Total 801 / 801 310 / 310 Output Total 500 / 500 500 / 500 Balance 301 / 301 -190 / -190 Weight 72 kg Intake: IV 711 / 711 250 / 250 Sodium Bicarbonate 8.4% Inj 100 100 / 100 ML @ 0 mls/hr .ROUTE .STK-MED ONE Rx#:[id number] Nimbex Inj 100 MG In NS Inj 240 100 / 100 ML @ 3.3 MCG/KG/MIN 38.16 mls/ hr IV.CONT TITRATE PRN Rx#: [id number] Versed Inj 50 mg In 50 ml @ 2 30 / 30 MG/HR 2 mls/hr IV.CONT TITRATE PRN Rx#:[id number] Diprivan 1000 mg/100 ml Inj 1, 1 / 1 000 mg In 100 ml @ 5 MCG/KG/MIN 2.16 mls/hr IV.CONT TITRATE PRN Rx#:[id number] Ofirmev Inj 1,000 mg In 100 ml 100 / 100 @ 400 mls/hr IV.SIG NOW ONE Rx# :[id number] Magnesium Sulfate Inj 2 GM In 100 / 100 NS Inj 96 ML @ 50 mls/hr IV.SIG ONCE ONE Rx#:[id number] Levophed Inj 4 MG In NS Inj 246 250 / 250 ML @ 0.5 MCG/MIN 1.87 mls/hr IV.SIG TITRATE PRN Rx#:[id number] NS Inj 250 ML @ Wide Open IV. 0 / 0 SIG BOLUS OMAR Rx#:[id number] fentaNYL 10 mcg/mL Premix Drip 280 / 280 2,500 mcg In 250 ml @ 50 MCG/HR 5 mls/hr IV.SIG TITRATE PRN Rx #:[id number] Oral 30 / 30 Water Bolus Amount 60 / 60 60 / 60 Output: Urine Amount (Catheter) 500 / 500 500 / 500 Indwelling Temp Sensing 500 / 500 500 / 500 Catheter Other: Date of Last Bowel Movement 03/28/18 03/28/18 03/28/18 # Bowel Movements 0 Result Diagrams: 03/31/18 03:30 03/31/18 03:30 Other Results: Microbiology 03/30/18 20:45 Blood - Line Aerobic Blood Culture - Preliminary No growth in 2 days 03/30/18 20:45 Blood - Line Anaerobic Blood Culture - Preliminary No growth in 2 days Imaging: Chest X-Ray 03/29/18 11:24 CONCLUSION: 1. The endotracheal tube and NG tube are in good position. 2. No evidence of pneumothorax. 3. No acute pulmonary infiltrates. Abdomen X-Ray 03/31/18 15:51 CONCLUSION: Dobbhoff tube in the stomach. Abdomen X-Ray 04/01/18 00:00 CONCLUSION: Dobbhoff tube in the stomach. Objective Remarks: GENERAL: 63-year-old male resting in bed in no acute distress HEENT: Normocephalic. Atraumatic. Pupils equal, round, reactive, conjugate. Mucous membranes are moist G-tube in place NECK: Trachea is midline. There is no JVD. CHEST: Essentially clear to auscultation bilateral without wheezes rales rhonchi CARDIOVASCULAR: Tachycardic, regular rhythm. S1, S2. No S4 per ABDOMEN: Soft, nontender, nondistended. No guarding. MUSCULOSKELETAL: Pulses 2+. No peripheral edema. NEUROLOGICAL: Renal nerves II through XII grossly intact. Strength is equal and symmetric. Normal sensation. Assessment and Plan - Assessment and Plan Plan: Neuro/Psych: Hypoxic ischemic encephalopathy- improving Acetaminophen 650 mg by tube every 4 hours as needed fever Oxycodone 5 mg by tube every 4 hours as needed pain 1 through 5 Morphine sulfate 2 mg IV every 2 hours as needed pain 6-10 s/p therapetuic hypothermia. rewarmed AM 03/31. Respiratory: Acute hypoxic and hypercarbic respiratory failure Incentive spirometry while awake Nasal cannula to maintain saturations greater than equal to 92% Head of bed elevated Albuterol/ipratropium aerosols every 6 hours with albuterol aerosols every 2 hours as needed dyspnea Cardiovascular: Out of hospital ventricular fibrillation cardiac arrest Cardiogenic shock Acute systolic and diastolic heart failure ST elevation myocardial infarction Hyperlipidemia RCA dissection Status post RCA stent 03/29 for dissection 2D echocardiogram revealed EF of 40-45 %. Global hypokinesis. Grade 1 diastolic dysfunction. s/p target temperature monitoring Continue ticagrelor 90 mg twice daily and aspirin 81 mg daily for dual action platelet therapy for drug-eluting stent Continue atorvastatin 80 mg daily 11-minute V. fib arrest document by pacemaker Currently on metoprolol tartrate 6.25 mg twice daily. No MAKSIM inhibitor due to hypotension Renal Acute kidney injury- improving Secondary to cardiogenic shock from out of hospital cardiac arrest Continue Tellez Trend creatinine -- Strict I/Os FEN/GI: Tube feeds currently on hold. Swallow evaluation pending ICU electrolyte protocol Daily BMP, magnesium, phosphorus Maintenance IV fluids Heme/ID: Leukocytosis Normocytic anemia Daily CBC No indication for transfusion of blood products. Endocrine: Hyperglycemia of critical illness -- SSI Prophylaxis: GI Prophylaxis Famotidine DVT Prophylaxis -- SCDs Enoxaparin Lines: Quatro Cool catheter 03/29- Tellez 03/29 Level 2 follow-up
[2018-04-01] MEDS ORDERED: Melatonin 5 MG Tablet PO ONE (23:30)
[2018-04-02] MEDS ORDERED: Dexmedetomidine Inj 200 MCG in Sodium Chlor 0.9% Inj 48 ML IV.CONT PRN (03:03)
[2018-04-02 05:44] LABS: Baso % (Auto) 0.2 % (0.0-2.0); Eos % (Auto) 0.3 % (0.0-4.0); Hematocrit 26.4 % (39.0-51.0); Hemoglobin 9.1 gm/dL (13.0-17.0); Lymph # (Auto) 0.6 th/mm3 (1.0-4.8); Mean Corpuscular HGB Conc 34.7 % (32.0-36.0); Mean Corpuscular Hemoglobin 33.5 pg (27.0-34.0); Mean Corpuscular Volume 96.7 fL (80.0-100.0); Mean Platelet Volume 8.4 fL (7.0-11.0); Mono # (Auto) 0.4 th/mm3 (0.0-0.9); Mono % (Auto) 5.8 % (0.0-8.0); Neut # (Auto) 6.5 th/mm3 (1.8-7.7); Neut % (Auto) 85.7 % (16.0-70.0); Platelet Count 140 th/mm3 (150-450); Red Blood Count 2.73 mil/mm3 (4.50-5.90); Red Cell Distribution Width 14.9 % (11.6-17.2); White Blood Count 7.6 th/mm3 (4.0-11.0)
[2018-04-02 06:17] LABS: Alanine Aminotransferase 35 U/L (12-78); Alkaline Phosphatase 111 U/L (45-117); Anion Gap 10 meq/L (5-15); Aspartate Aminotransferase 164 U/L (15-37); Blood Urea Nitrogen 21 mg/dL (7-18); Calcium 8.2 mg/dL (8.5-10.1); Carbon Dioxide 24.8 meq/L (21.0-32.0); Chloride 105 meq/L (98-107); Glomerular Filtration Rate 46 mL/min (>89); Glucose,Random 86 mg/dL (74-106); Magnesium 1.9 mg/dL (1.5-2.5); Phosphorus 1.9 mg/dL (2.5-4.9); Potassium 3.5 meq/L (3.5-5.1); Sodium 140 meq/L (136-145); Total Protein 5.2 g/dL (6.4-8.2)
[2018-04-02] MEDS ORDERED: Potassium Phosphate Inj 30 MMOL in Sodium Chlor 0.9% Inj 250 ML IV.SIG ONE (06:38)
[2018-04-02] MEDS ORDERED: Sodium Chlor 0.9% Inj 500 ML IV.SIG SCH (06:39)
[2018-04-02] MEDS: Oral Hygiene Kit OROPHARYNG SCH ×3 (06:39→16:51)
[2018-04-02] MEDS: Enoxaparin Inj 40 MG/0.4 ML Syringe SQ SCH (09:55)
[2018-04-02] MEDS: Docusate Sodium Liq 100 MG/10 ML UDC PO SCH ×2 (09:55→20:32)
--- NOTE | 2018-04-02 09:55 | CT ---
EXAM DATE: 04/02/2018 9:46 AM EDT AGE/SEX: 63 years / Male INDICATIONS: Altered mental status. CLINICAL DATA: This is the patient's initial encounter. Patient reports that signs and symptoms have been present for 1 day and indicates a pain score of Nonresponsive. MEDICAL/SURGICAL HISTORY: Hypertension. Cardiovascular disease. Coronary artery stent. Pacemaker. RADIATION DOSE: 40.28 CTDI (mGy) COMPARISON: No prior exams available for comparison. TECHNIQUE: CT of the head without contrast. Using automated exposure control and adjustment of the mA and/or kV according to patient size, radiation dose was kept as low as reasonably achievable to ob tain optimal diagnostic quality images. DICOM format image data is available electronically for revi ew and comparison. FINDINGS: Cerebrum: There is mild generalized atrophy and ventricles are normal given the degree of atrophy. M ild periventricular white matter change is present. No midline shift, mass lesion, hemorrhage or acu te infarction. No extraaxial fluid collections are seen. Posterior Fossa: The cerebellum and brainstem demonstrate no acute abnormality. The 4th ventricle is midline. The cerebellopontine angle is within normal limits. Extracranial: There is a minimal mucoperiosteal thickening within the sphenoid, ethmoid, and visuali zed maxillary sinuses. Mastoid air cells are clear. Skull: The calvaria is intact. No skull fracture. CONCLUSION: 1. No acute intracranial abnormality is identified. 2. Chronic changes include mild generalized atrophy and mild periventricular white matter low-attenu ation most likely representing chronic microvascular ischemia. . Electronically signed by: Frantz Pacheco MD 04/02/2018 9:54 AM EDT
[2018-04-02] MEDS: Chlorhexidine 0.12% Oral Kit 15 ML UDC OROPHARYNG SCH ×2 (09:56→20:32)
[2018-04-02] MEDS: Metoprolol Tartrate 25 MG Tablet PO SCH ×2 (09:56→20:32)
--- NOTE | 2018-04-02 10:42 | US ---
EXAM DATE: 04/02/2018 10:26 AM EDT AGE/SEX: 63 years / Male INDICATIONS: Increased lab values. CLINICAL DATA: This is the patient's initial encounter. Patient reports that signs and symptoms have been present for 1 day and indicates a pain score of 0/10. MEDICAL/SURGICAL HISTORY: Asthma. Hypertension. Hyperlipidemia. . Coronary artery stent place ment. Permanent cardiac pacemaker placement. COMPARISON: No prior exams available for comparison. MEASUREMENTS: Right Kidney:__9.8 x 5.2 x 4.7 cm Left Kidney:__7.8 x 4.4 x 4.1 cm FINDINGS: Right Kidney: Normal echogenicity and cortical thickness. No mass or hydronephrosis. Left Kidney: Normal echogenicity and cortical thickness. No mass or hydronephrosis. Bladder: Tellez catheter is present. Bladder decompressed. Other: None. CONCLUSION: Ultrasound of the kidneys demonstrate no significant abnormality. There is no hydronephrosis. Electronically signed by: Frantz Pacheco MD 04/02/2018 10:41 AM EDT
--- NOTE | 2018-04-02 11:01 | P.PNCA ---
Subjective Interval history: Pt without complaints this am Medications and Allergies Active Medications: Active Medications Acetaminophen (Tylenol Liq) 650 mg PO Q6H PRN PRN Reason: FEVER Last Admin: 04/01/18 05:08 Dose: 650 mg Albuterol (Duoneb Neb (Mendez)) 1 ampul NEB Q6HR NEB [facility] Last Admin: 04/02/18 09:44 Dose: Not Given Albuterol (Albuterol Neb (Prn)) 2.5 mg NEB Q2HR NEB PRN PRN Reason: DYSPNEA Artificial Tears (Lacrilube Opth Oint) 1 applicatio EACH EYE Q4H PRN PRN Reason: WHILE ON NMB Aspirin (Aspirin Chew) 81 mg PO DAILY [facility] Last Admin: 04/02/18 09:55 Dose: 81 mg Atorvastatin Calcium (Lipitor) 80 mg PO HS [facility] Last Admin: 04/01/18 20:14 Dose: 80 mg Bisacodyl (Dulcolax Ec) 10 mg PO DAILY PRN PRN Reason: CONSTIPATION Chlorhexidine Gluconate (Peridex 0.12% Oral Kit) 15 ml OROPHARYNG BID@0800, 2000 [facility] Last Admin: 04/02/18 09:56 Dose: 15 ml Docusate Sodium (Colace Liq) 100 mg PO BID [facility] Last Admin: 04/02/18 09:55 Dose: 100 mg Enoxaparin Sodium (Lovenox Inj) 40 mg SQ DAILY [facility] Last Admin: 04/02/18 09:55 Dose: 40 mg Magnesium Sulfate 4 gm/ Sodium (Chloride) 100 mls @ 50 mls/hr IV.SIG UNSCH PRN PRN Reason: For Magnesium 0.9 - 1.1 mg/dL Potassium Chloride (Kcl 40 Meq Premix Inj) 40 meq in 100 mls @ 25 mls/hr IV.SIG Q2H PRN PRN Reason: For Potassium 2.8 - 3.2 mEq/L Potassium Chloride (Kcl 20 Meq Premix Inj) 20 meq in 100 mls @ 50 mls/hr IV.SIG Q2H PRN PRN Reason: For Potassium 3.3 - 3.5 mEq/L Potassium Chloride (Kcl 40 Meq Premix Inj) 40 meq in 100 mls @ 25 mls/hr IV.SIG UNSCH PRN PRN Reason: For Potassium 3.3 - 3.5 mEq/L Potassium Chloride (Kcl 20 Meq Premix Inj) 20 meq in 100 mls @ 50 mls/hr IV.SIG Q2H PRN PRN Reason: For Potassium 2.8 - 3.2 mEq/L Potassium Phosphate 30 mmol/ (Sodium Chloride) 260 mls @ 42 mls/hr IV.SIG UNSCH PRN PRN Reason: SEE LABEL COMMENTS Sodium Phosphate 30 mmol/ (Sodium Chloride) 260 mls @ 42 mls/hr IV.SIG UNSCH PRN PRN Reason: For Phosphorus < 2.5 mg/dL Magnesium Sulfate 2 gm/ Sodium (Chloride) 100 mls @ 50 mls/hr IV.SIG UNSCH PRN PRN Reason: For Magnesium 1.2 - 1.6 mg/dL Dexmedetomidine HCl 200 mcg/ (Sodium Chloride) 50 mls @ 3.6 mls/hr IV.CONT TITRATE PRN; Protocol PRN Reason: Per Protocol Sodium Chloride (Ns Inj) 500 mls @ 0 mls/hr IV.SIG BOLUS MENDEZ Potassium Phosphate 30 mmol/ (Sodium Chloride) 260 mls @ 43.333 mls/hr IV.SIG ONCE ONE Stop: 04/02/18 12:37 Magnesium Oxide (Mag-Ox) 800 mg PO UNSCH PRN PRN Reason: For Magnesium 1.2 - 1.6 mg/dL Metoclopramide HCl (Reglan Inj) 10 mg IV.PUSH Q6H PRN PRN Reason: NAUSEA OR VOMITING Metoprolol Tartrate (Lopressor) 6.25 mg PO BID [facility] Last Admin: 04/02/18 09:56 Dose: Not Given Miscellaneous Information (Misc Mix All Iv Meds In Ns) 1 each MISCELLANE UNSCH PRN PRN Reason: SEE LABEL COMMENTS Miscellaneous Medication () 1 each OROPHARYNG 0000,0400,1200,1600 [facility] Last Admin: 04/02/18 06:39 Dose: Not Given Morphine Sulfate (Morphine Inj) 2 mg IV.PUSH Q2H PRN PRN Reason: Pain 6 through 10 Last Admin: 04/01/18 22:38 Dose: 2 mg Ondansetron HCl (Zofran Inj) 4 mg IV.PUSH Q6H PRN PRN Reason: NAUSEA OR VOMITING Oxycodone HCl (Roxicodone Intensol Liq) 5 mg PO Q4H PRN PRN Reason: Pain 1 through 5 Potassium Bicarb/Potassium Chloride (K-Lyte Cl Eff) 50 meq PO UNSCH PRN PRN Reason: For Potassium 3.3 - 3.5 mEq/L Potassium Phosphate (K-Phos Original) 2,000 mg PO Q4H PRN PRN Reason: Phosphorus Less Than 2.5 mg/dL Potassium Phosphate (K-Phos Original) 2,000 mg PO UNSCH PRN PRN Reason: SEE LABEL COMMENTS Sodium Bicarbonate (Sodium Bicarbonate 8.4% Inj) 100 meq IV.PUSH NOW [facility] Sodium Chloride (Ns Flush) 2 ml IV.FLUSH BID [facility] Last Admin: 04/02/18 09:55 Dose: 2 ml Sodium Chloride (Ns Flush) 2 ml IV.FLUSH PRN PRN PRN Reason: FLUSH AFTER USING IV ACCESS Ticagrelor (Brilinta) 90 mg PO BID [facility] Last Admin: 04/02/18 09:55 Dose: 90 mg Allergies Allergy/AdvReac Type Severity Reaction Status Date / Time No Allergy Information Allergy Verified 03/29/18 11:38 Available Home Medications Medication Instructions Recorded Confirmed Type Unable to Obtain Home Meds 03/29/18 03/29/18 History Physical Exam Vital signs: Vital Signs 04/01/18 12:00 04/01/18 14:00 04/01/18 16:00 Temperature 97.7 F 97.8 F Pulse Rate 113 H 106 H 111 H Respiratory Rate 20 17 Blood Pressure 107/57 L 100/59 L Pulse Oximetry 99 100 04/01/18 17:05 04/01/18 17:07 04/01/18 18:00 Temperature Pulse Rate 118 H 126 H Respiratory Rate 22 Blood Pressure Pulse Oximetry 97 04/01/18 20:00 04/01/18 22:00 04/02/18 00:00 Temperature 97.8 F 98.0 F Pulse Rate 121 H 112 H 128 H Respiratory Rate 14 26 H Blood Pressure 107/62 122/74 Pulse Oximetry 97 96 04/02/18 02:00 04/02/18 04:00 04/02/18 06:00 Temperature 98.0 F Pulse Rate 108 H 114 H 89 Respiratory Rate 12 Blood Pressure 109/62 Pulse Oximetry 98 04/02/18 07:00 Temperature Pulse Rate Respiratory Rate Blood Pressure Pulse Oximetry 97 Intake & Output 04/01/18 04/02/18 04/02/18 18:59 06:59 18:59 Intake Total 200 / 200 0 / 0 Output Total 350 / 350 600 / 600 Balance -150 / -150 -600 / -600 Weight 70.5 kg Intake: Oral 200 / 200 0 / 0 Output: Stool 0 / 0 Urine/Stool Mix 0 / 0 Urine Amount (Catheter) 350 / 350 600 / 600 Indwelling Temp Sensing 350 / 350 600 / 600 Catheter Other: Date of Last Bowel Movement 03/28/18 03/28/18 # Bowel Movements 0 # Incontinent Bowel Movements 0 - Constitutional no acute distress - Routine Respiratory Exam Present: CTA bilaterally - Routine Cardiovascular Exam Present: RRR Comments: no murmurs or edema - Urinary Catheter Management Indwelling Temp Sensing Catheter Cath placed during this visit: yes Reason for continuing: Hourly intake/output Insertion date: 03/29/18 Insertion time: 15:00 Results 04/02/18 04:56 04/02/18 04:56 Cardiac Enzymes 04/02/18 Range/Units 04:56 AST 164 H (15-37) U/L CBC 04/02/18 Range/Units 04:56 WBC 7.6 (4.0-11.0) th/mm3 RBC 2.73 L (4.50-5.90) mil/mm3 Hgb 9.1 L (13.0-17.0) gm/dL Hct 26.4 L (39.0-51.0) % Plt Count 140 L (150-450) th/mm3 Neut # (Auto) 6.5 (1.8-7.7) th/mm3 Lymph # (Auto) 0.6 L (1.0-4.8) th/mm3 Collier # (Auto) 0.4 (0.0-0.9) th/mm3 Eos # (Auto) 0.0 (0.0-0.4) th/mm3 Baso # (Auto) 0.0 (0.0-0.2) th/mm3 Comprehensive Metabolic Panel 04/02/18 Range/Units 04:56 Sodium 140 (136-145) meq/L Potassium 3.5 (3.5-5.1) meq/L Chloride 105 (98-107) meq/L Carbon Dioxide 24.8 (21.0-32.0) meq/L BUN 21 H (7-18) mg/dL Creatinine 1.54 H (0.60-1.30) mg/dL Calcium 8.2 L (8.5-10.1) mg/dL AST 164 H (15-37) U/L ALT 35 (12-78) U/L Alkaline Phosphatase 111 (45-117) U/L Total Protein 5.2 L (6.4-8.2) g/dL Albumin 2.0 L (3.4-5.0) g/dL Intake and Output 04/01/18 04/02/18 04/02/18 22:59 06:59 14:59 Intake Total 200 / 200 0 / 0 Output Total 350 / 350 600 / 600 Balance -150 / -150 -600 / -600 Intake: Oral 200 / 200 0 / 0 Output: Stool 0 / 0 Urine/Stool Mix 0 / 0 Urine Amount (Catheter) 350 / 350 600 / 600 Indwelling Temp Sensing 350 / 350 600 / 600 Catheter Other: Date of Last Bowel Movement 03/28/18 03/28/18 # Bowel Movements 0 # Incontinent Bowel Movements 0 Weight 70.5 kg - Imaging and Cardiology Imaging: Impressions Abdomen X-Ray 03/31/18 15:51 CONCLUSION: Dobbhoff tube in the stomach. Abdomen X-Ray 04/01/18 00:00 CONCLUSION: Dobbhoff tube in the stomach. Abdomen/Bladder Ultrasound 04/02/18 00:00 CONCLUSION: Ultrasound of the kidneys demonstrate no significant abnormality. There is no hydronephrosis. Head CT 04/02/18 06:40 CONCLUSION: 1. No acute intracranial abnormality is identified. 2. Chronic changes include mild generalized atrophy and mild periventricular white matter low-attenuation most likely representing chronic microvascular ischemia. . Echo: report reviewed Assessment and Plan - Assessment (1) ST elevation myocardial infarction (STEMI) Code(s): I21.3 - ST elevation (STEMI) myocardial infarction of unspecified site Status: Acute Plan: stable and doing well -try again for OOB, (AMS yesterday) -on low dose BB (2) History of permanent cardiac pacemaker placement Code(s): Z95.0 - Presence of cardiac pacemaker Status: Acute (3) Cardiac arrest with ventricular fibrillation Code(s): I46.9 - Cardiac arrest, cause unspecified; I49.01 - Ventricular fibrillation Status: Acute (4) History of coronary artery stent placement Code(s): Z95.5 - Presence of coronary angioplasty implant and graft Status: Acute (5) Hyperlipidemia Code(s): E78.5 - Hyperlipidemia, unspecified Status: Acute Plan: statin (6) Hypertension Code(s): I10 - Essential (primary) hypertension Status: Acute Plan: good to low s/p STEMI (7) Acute respiratory failure Code(s): J96.00 - Acute respiratory failure, unspecified whether with hypoxia or hypercapnia Status: Acute - Plan 1) Vfib arrest Most likely due to coronary dissection 2) Inferior STEMI with coronary dissection s/p KAILA to RCA Significant spasm in multiple vessels due to Vfib arrest/ischemia ASA/Brilinta/Statin BB/MAKSIM-I on hold due to hypotension 3) Encephalopathy Post cardiac arrest, hypothermia, and rewarming 4) Hypothermia protocol completed 5) PPM interrogated 11 mins of ventricular fibrillation No other events 6) asked about defibrillator placement Vfib arrest due to inferior STEMI with RCA dissection Would not consider him a candidate as area of concern fixed (1) ST elevation myocardial infarction (STEMI) Qualifiers: Involved coronary artery: unspecified coronary artery Qualified Code(s): I21.3 - ST elevation (STEMI) myocardial infarction of unspecified site
--- NOTE | 2018-04-02 12:49 | P.PNCC ---
Subjective Subjective Remarks/Hospital Course: Patient is a 63-year-old male who presents the emergency room via EMS for STEMI alert. As per EMS, patient was with a girlfriend and reported to her that he was not feeling well. He had a syncopal episode. Apparently, patient did not hit his head on the floor, he was lowered to the floor. Patient did lose pulses , bystanders started CPR. When EMS arrived on scene, patient was found to be in V. fib arrest, he was shocked once at 150 and return to pulses. Patient was found to have ST segment elevations in leads II, III, aVF with reciprocal changes. Patient presents the emergency room obtunded, patient unable to provide any HPI. Per ER documentation GCS was 3 following return of spontaneous circulation. Patient was intubated in ER and placed on mechanical ventilation. STEMI alert was called and patient was evaluated by Dr. 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 RCA stenting performed at site of dissection. Patient was started on Versed and fentanyl during cardiac catheterization as he appeared to be gagging and fighting the ventilator. Following procedure he was transferred to [facility] [place] where I evaluated him following his arrival. I personally spoke with Dr. Kline and confirmed GCS 3 on her evaluation following patient's arrival to the ER. Decision was made to initiate hypothermia protocol. I spoke with patient's and son at bedside and they agreed to proceed with Quatro catheter placement and initiation of therapeutic hypothermia. According to patient's he was down for about 5 minutes before EMS arrival and being shocked. He was given bystander CPR by family immediately on going down. 03/30: at target temperature. on low-dose vasopressors intermittently. uop marginal but adequate, likely due to hypothermia. trop increasing still, but no other evidence of coronary ischemia. 03/31: rewarmed. following commands. still on levophed. organ function stable. 04/01: Off norepinephrine. Quattro catheter has been removed. Very weak. Nasogastric tube remains in place. Follows commands. Subjective 04/02: Patient became acutely and confused this a.m. Received 1 dose of melatonin overnight. Required dexmedetomidine drip but this is been discontinued. Currently awake and oriented to person place and year. CT brain revealed chronic microvascular changes. No acute findings. Objective Vital Signs / I&O: Vital Signs 04/01/18 14:00 04/01/18 16:00 04/01/18 17:05 Temperature 97.8 F Pulse Rate 106 H 111 H 118 H Respiratory Rate 17 22 Blood Pressure 100/59 L Pulse Oximetry 100 04/01/18 17:07 04/01/18 18:00 04/01/18 20:00 Temperature 97.8 F Pulse Rate 126 H 121 H Respiratory Rate 14 Blood Pressure 107/62 Pulse Oximetry 97 97 04/01/18 22:00 04/02/18 00:00 04/02/18 02:00 Temperature 98.0 F Pulse Rate 112 H 128 H 108 H Respiratory Rate 26 H Blood Pressure 122/74 Pulse Oximetry 96 04/02/18 04:00 04/02/18 06:00 04/02/18 07:00 Temperature 98.0 F Pulse Rate 114 H 89 Respiratory Rate 12 Blood Pressure 109/62 Pulse Oximetry 98 97 Intake & Output 04/01/18 04/02/18 04/02/18 18:59 06:59 18:59 Intake Total 200 / 200 0 / 0 Output Total 350 / 350 600 / 600 Balance -150 / -150 -600 / -600 Weight 70.5 kg Intake: Oral 200 / 200 0 / 0 Output: Stool 0 / 0 Urine/Stool Mix 0 / 0 Urine Amount (Catheter) 350 / 350 600 / 600 Indwelling Temp Sensing 350 / 350 600 / 600 Catheter Other: Date of Last Bowel Movement 03/28/18 03/28/18 # Bowel Movements 0 # Incontinent Bowel Movements 0 Result Diagrams: 04/02/18 04:56 04/02/18 04:56 Other Results: Microbiology 03/30/18 20:45 Blood - Line Aerobic Blood Culture - Preliminary No growth in 3 days 03/30/18 20:45 Blood - Line Anaerobic Blood Culture - Preliminary No growth in 3 days Imaging: Chest X-Ray 03/29/18 11:24 CONCLUSION: 1. The endotracheal tube and NG tube are in good position. 2. No evidence of pneumothorax. 3. No acute pulmonary infiltrates. Abdomen X-Ray 03/31/18 15:51 CONCLUSION: Dobbhoff tube in the stomach. Abdomen X-Ray 04/01/18 00:00 CONCLUSION: Dobbhoff tube in the stomach. Abdomen/Bladder Ultrasound 04/02/18 00:00 CONCLUSION: Ultrasound of the kidneys demonstrate no significant abnormality. There is no hydronephrosis. Head CT 04/02/18 06:40 CONCLUSION: 1. No acute intracranial abnormality is identified. 2. Chronic changes include mild generalized atrophy and mild periventricular white matter low-attenuation most likely representing chronic microvascular ischemia. . Objective Remarks: GENERAL: 63-year-old male resting in bed in no acute distress HEENT: Normocephalic. Atraumatic. Pupils equal, round, reactive, conjugate. Mucous membranes are moist G-tube in place NECK: Trachea is midline. There is no JVD. CHEST: Essentially clear to auscultation bilateral without wheezes rales rhonchi CARDIOVASCULAR: Tachycardic, regular rhythm. S1, S2. No S4 per ABDOMEN: Soft, nontender, nondistended. No guarding. MUSCULOSKELETAL: Pulses 2+. No peripheral edema. NEUROLOGICAL: Cranial nerves II through XII grossly intact. Strength is equal and symmetric. Normal sensation. Assessment and Plan - Assessment and Plan Plan: Neuro/Psych: Hypoxic ischemic encephalopathy- improving ICU delirium Acetaminophen 650 mg by tube every 4 hours as needed fever Oxycodone 5 mg by tube every 4 hours as needed pain 1 through 5 Morphine sulfate 2 mg IV every 2 hours as needed pain 6-10 s/p therapetuic hypothermia. rewarmed AM 03/31. Written for melatonin 5 mg at night as needed insomnia Sleep hygiene stressed Respiratory: Acute hypoxic and hypercarbic respiratory failure Incentive spirometry while awake Nasal cannula to maintain saturations greater than equal to 92% Head of bed elevated Albuterol/ipratropium aerosols every 6 hours with albuterol aerosols every 2 hours as needed dyspnea Cardiovascular: Out of hospital ventricular fibrillation cardiac arrest Cardiogenic shock Acute systolic and diastolic heart failure ST elevation myocardial infarction Hyperlipidemia RCA dissection Status post RCA stent 03/29 for dissection 2D echocardiogram revealed EF of 40-45 %. Global hypokinesis. Grade 1 diastolic dysfunction. s/p target temperature monitoring Continue ticagrelor 90 mg twice daily and aspirin 81 mg daily for dual action platelet therapy for drug-eluting stent Continue atorvastatin 80 mg daily for hyperlipidemia 11-minute V. fib arrest document by pacemaker Currently on metoprolol tartrate 6.25 mg twice daily. No MAKSIM inhibitor due to hypotension Renal Acute kidney injury-creatinine currently 1.54 Secondary to cardiogenic shock from out of hospital cardiac arrest Discontinued Tellez Trend creatinine -- Strict I/Os Urine eosinophils, sodium and creatinine pending FEN/GI: Acute hypophosphatemia Advance diet as tolerated ICU electrolyte protocol Daily BMP, magnesium, phosphorus Received 30 mmol K-Phos IV x1 today. Recheck in a.m. Heme/ID: Thrombocytopenia Normocytic anemia Daily CBC No indication for transfusion of blood products. Endocrine: Hyperglycemia of critical illness -- SSI Prophylaxis: GI Prophylaxis Famotidine DVT Prophylaxis -- SCDs Enoxaparin Lines: Quatro Cool catheter 03/29- Tellez 03/29 Level 2 follow-up
[2018-04-02] MEDS ORDERED: Aluminum/Magnesium/Simethacone Susp 30 ML UDC PO ONE (16:17)
[2018-04-02 23:15] LABS: Creatinine,Urine Random 187 mg/dL (27-300)
[2018-04-02] MEDS: Melatonin 5 MG Tablet PO PRN (23:56)
[2018-04-03] MEDS: Oral Hygiene Kit OROPHARYNG SCH ×4 (03:39→15:58)
[2018-04-03] MEDS: Famotidine 20 MG Tablet PO SCH ×2 (03:39→21:11)
[2018-04-03 05:11] LABS: Baso % (Auto) 0.2 % (0.0-2.0); Eos # (Auto) 0.2 th/mm3 (0.0-0.4); Eos % (Auto) 1.6 % (0.0-4.0); Hematocrit 25.3 % (39.0-51.0); Hemoglobin 8.8 gm/dL (13.0-17.0); Lymph # (Auto) 1.2 th/mm3 (1.0-4.8); Lymph % (Auto) 12.3 % (9.0-44.0); Mean Corpuscular HGB Conc 34.8 % (32.0-36.0); Mean Corpuscular Hemoglobin 33.2 pg (27.0-34.0); Mean Corpuscular Volume 95.5 fL (80.0-100.0); Mean Platelet Volume 8.1 fL (7.0-11.0); Mono # (Auto) 0.8 th/mm3 (0.0-0.9); Mono % (Auto) 8.3 % (0.0-8.0); Neut # (Auto) 7.5 th/mm3 (1.8-7.7); Neut % (Auto) 77.6 % (16.0-70.0); Platelet Count 146 th/mm3 (150-450); Red Blood Count 2.65 mil/mm3 (4.50-5.90); Red Cell Distribution Width 14.6 % (11.6-17.2); White Blood Count 9.6 th/mm3 (4.0-11.0)
[2018-04-03 05:29] LABS: Calcium 8.1 mg/dL (8.5-10.1); Carbon Dioxide 26.2 meq/L (21.0-32.0); Magnesium 1.8 mg/dL (1.5-2.5); Potassium 3.6 meq/L (3.5-5.1)
[2018-04-03 05:31] LABS: Phosphorus 3.6 mg/dL (2.5-4.9)
[2018-04-03] MEDS: Metoprolol Tartrate 25 MG Tablet PO SCH ×2 (08:56→21:11)
[2018-04-03] MEDS: Enoxaparin Inj 40 MG/0.4 ML Syringe SQ SCH (08:57)
[2018-04-03] MEDS: Chlorhexidine 0.12% Oral Kit 15 ML UDC OROPHARYNG SCH ×2 (09:42→21:11)
--- NOTE | 2018-04-03 12:18 | P.PNCA ---
Subjective Interval history: No complaints Up to the chair Medications and Allergies Active Medications: Active Medications Acetaminophen (Tylenol Liq) 650 mg PO Q6H PRN PRN Reason: FEVER Last Admin: 04/03/18 09:45 Dose: 650 mg Albuterol (Albuterol Neb (Prn)) 2.5 mg NEB Q2HR NEB PRN PRN Reason: DYSPNEA Albuterol (Duoneb Neb (Mendez)) 1 ampul NEB Q6HR WHILE AWAKE NEB [facility] Last Admin: 04/03/18 01:11 Dose: Not Given Artificial Tears (Lacrilube Opth Oint) 1 applicatio EACH EYE Q4H PRN PRN Reason: WHILE ON NMB Aspirin (Aspirin Chew) 81 mg PO DAILY [facility] Last Admin: 04/03/18 08:55 Dose: 81 mg Atorvastatin Calcium (Lipitor) 80 mg PO HS [facility] Last Admin: 04/02/18 20:32 Dose: 80 mg Bisacodyl (Dulcolax Ec) 10 mg PO DAILY PRN PRN Reason: CONSTIPATION Chlorhexidine Gluconate (Peridex 0.12% Oral Kit) 15 ml OROPHARYNG BID@0800, 1999 [facility] Last Admin: 04/03/18 09:42 Dose: Not Given Docusate Sodium (Colace Liq) 100 mg PO BID [facility] Last Admin: 04/02/18 20:32 Dose: 100 mg Enoxaparin Sodium (Lovenox Inj) 40 mg SQ DAILY [facility] Last Admin: 04/03/18 08:57 Dose: 40 mg Famotidine (Pepcid) 20 mg PO HS [facility] Last Admin: 04/03/18 03:39 Dose: 20 mg Magnesium Sulfate 4 gm/ Sodium (Chloride) 100 mls @ 50 mls/hr IV.SIG UNSCH PRN PRN Reason: For Magnesium 0.9 - 1.1 mg/dL Potassium Chloride (Kcl 40 Meq Premix Inj) 40 meq in 100 mls @ 25 mls/hr IV.SIG Q2H PRN PRN Reason: For Potassium 2.8 - 3.2 mEq/L Potassium Chloride (Kcl 20 Meq Premix Inj) 20 meq in 100 mls @ 50 mls/hr IV.SIG Q2H PRN PRN Reason: For Potassium 3.3 - 3.5 mEq/L Potassium Chloride (Kcl 40 Meq Premix Inj) 40 meq in 100 mls @ 25 mls/hr IV.SIG UNSCH PRN PRN Reason: For Potassium 3.3 - 3.5 mEq/L Potassium Chloride (Kcl 20 Meq Premix Inj) 20 meq in 100 mls @ 50 mls/hr IV.SIG Q2H PRN PRN Reason: For Potassium 2.8 - 3.2 mEq/L Potassium Phosphate 30 mmol/ (Sodium Chloride) 260 mls @ 42 mls/hr IV.SIG UNSCH PRN PRN Reason: SEE LABEL COMMENTS Sodium Phosphate 30 mmol/ (Sodium Chloride) 260 mls @ 42 mls/hr IV.SIG UNSCH PRN PRN Reason: For Phosphorus < 2.5 mg/dL Magnesium Sulfate 2 gm/ Sodium (Chloride) 100 mls @ 50 mls/hr IV.SIG UNSCH PRN PRN Reason: For Magnesium 1.2 - 1.6 mg/dL Sodium Chloride (Ns Inj) 500 mls @ 0 mls/hr IV.SIG BOLUS MENDEZ Magnesium Oxide (Mag-Ox) 800 mg PO UNSCH PRN PRN Reason: For Magnesium 1.2 - 1.6 mg/dL Melatonin (Melatonin) 5 mg PO HS PRN PRN Reason: INSOMNIA Last Admin: 04/02/18 23:56 Dose: 5 mg Metoclopramide HCl (Reglan Inj) 10 mg IV.PUSH Q6H PRN PRN Reason: NAUSEA OR VOMITING Metoprolol Tartrate (Lopressor) 6.25 mg PO BID [facility] Last Admin: 04/03/18 08:56 Dose: 6.25 mg Miscellaneous Information (Misc Mix All Iv Meds In Ns) 1 each MISCELLANE UNSCH PRN PRN Reason: SEE LABEL COMMENTS Miscellaneous Medication () 1 each OROPHARYNG 0000,0400,1200,1600 [facility] Last Admin: 04/03/18 11:15 Dose: Not Given Morphine Sulfate (Morphine Inj) 2 mg IV.PUSH Q2H PRN PRN Reason: Pain 6 through 10 Last Admin: 04/01/18 22:38 Dose: 2 mg Ondansetron HCl (Zofran Inj) 4 mg IV.PUSH Q6H PRN PRN Reason: NAUSEA OR VOMITING Oxycodone HCl (Roxicodone Intensol Liq) 5 mg PO Q4H PRN PRN Reason: Pain 1 through 5 Last Admin: 04/03/18 11:58 Dose: 5 mg Potassium Bicarb/Potassium Chloride (K-Lyte Cl Eff) 50 meq PO UNSCH PRN PRN Reason: For Potassium 3.3 - 3.5 mEq/L Potassium Phosphate (K-Phos Original) 2,000 mg PO Q4H PRN PRN Reason: Phosphorus Less Than 2.5 mg/dL Potassium Phosphate (K-Phos Original) 2,000 mg PO UNSCH PRN PRN Reason: SEE LABEL COMMENTS Sodium Bicarbonate (Sodium Bicarbonate 8.4% Inj) 100 meq IV.PUSH NOW [facility] Sodium Chloride (Ns Flush) 2 ml IV.FLUSH BID [facility] Last Admin: 04/03/18 08:57 Dose: 2 ml Sodium Chloride (Ns Flush) 2 ml IV.FLUSH PRN PRN PRN Reason: FLUSH AFTER USING IV ACCESS Ticagrelor (Brilinta) 90 mg PO BID [facility] Last Admin: 04/03/18 08:55 Dose: 90 mg Allergies Allergy/AdvReac Type Severity Reaction Status Date / Time No Allergy Information Allergy Verified 03/29/18 11:38 Available Home Medications Medication Instructions Recorded Confirmed Type Unable to Obtain Home Meds 03/29/18 03/29/18 History Physical Exam Vital signs: Vital Signs 04/02/18 14:00 04/02/18 15:55 04/02/18 16:00 Temperature 98.2 F Pulse Rate 94 H 102 H 106 H Respiratory Rate 20 22 Blood Pressure 104/62 Pulse Oximetry 100 04/02/18 18:00 04/02/18 19:00 04/02/18 20:00 Temperature 99.9 F H Pulse Rate 101 H 117 H Respiratory Rate 21 Blood Pressure 101/62 Pulse Oximetry 93 L 97 04/02/18 22:00 04/03/18 00:00 04/03/18 02:00 Temperature 98.2 F Pulse Rate 109 H 101 H 97 H Respiratory Rate 22 Blood Pressure 95/61 L Pulse Oximetry 95 04/03/18 04:00 04/03/18 06:00 04/03/18 06:41 Temperature 98.5 F Pulse Rate 92 H 93 H Respiratory Rate 19 Blood Pressure 98/61 L Pulse Oximetry 92 L 93 L 04/03/18 08:00 04/03/18 08:32 04/03/18 10:00 Temperature 98.2 F Pulse Rate 92 H 95 H 105 H Respiratory Rate 24 18 Blood Pressure 108/69 Pulse Oximetry Intake & Output 04/02/18 04/03/18 04/03/18 18:59 06:59 18:59 Intake Total 660 / 660 300 / 300 Output Total 275 / 275 520 / 520 Balance 385 / 385 -220 / -220 Weight 77.5 kg Intake: IV 260 / 260 Potassium Phosphate Inj 30 MMOL 260 / 260 In NS Inj 250 ML @ 43.333 mls/ hr IV.SIG ONCE ONE Rx#:[id number] Oral 400 / 400 300 / 300 Output: Urine 275 / 275 520 / 520 Stool 0 / 0 Urine/Stool Mix 0 / 0 Other: # Voids 2 # Incontinent Voids 0 # Urine Diapers 0 Date of Last Bowel Movement 03/28/18 03/28/18 # Bowel Movements 0 # Incontinent Bowel Movements 0 Narrative: GENERAL: NAD, AAOx3 SKIN: Warm and dry. HEAD: Atraumatic. Normocephalic. EYES: Pupils equal and round. No scleral icterus. No injection or drainage. ENT: No nasal bleeding or discharge. Mucous membranes pink and moist. Tongue with ecchymosis most likely from biting it NECK: Trachea midline. No JVD. CARDIOVASCULAR: Regular rhythm and rate RESPIRATORY: No accessory muscle use. Clear to auscultation. Breath sounds equal bilaterally. GASTROINTESTINAL: Abdomen soft, non-tender, nondistended. Hepatic and splenic margins not palpable. MUSCULOSKELETAL: Extremities without clubbing, cyanosis, or edema. No obvious deformities. NEUROLOGICAL: Awake and alert. No obvious cranial nerve deficits. Motor grossly within normal limits. Five out of 5 muscle strength in the arms and legs. Normal speech. - Urinary Catheter Management Indwelling Temp Sensing Catheter Cath placed during this visit: yes, but has since been removed by the nurse Reason for continuing: Hourly intake/output Insertion date: 03/29/18 Insertion time: 15:00 Removal date: 04/02/18 Removal time: 08:00 Results 04/03/18 03:50 04/03/18 03:50 Cardiac Enzymes 04/02/18 Range/Units 04:56 AST 164 H (15-37) U/L CBC 04/02/18 04/03/18 Range/Units 04:56 03:50 WBC 7.6 9.6 (4.0-11.0) th/mm3 RBC 2.73 L 2.65 L (4.50-5.90) mil/mm3 Hgb 9.1 L 8.8 L (13.0-17.0) gm/dL Hct 26.4 L 25.3 L (39.0-51.0) % Plt Count 140 L 146 L (150-450) th/mm3 Neut # (Auto) 6.5 7.5 (1.8-7.7) th/mm3 Lymph # (Auto) 0.6 L 1.2 (1.0-4.8) th/mm3 Clinch # (Auto) 0.4 0.8 (0.0-0.9) th/mm3 Eos # (Auto) 0.0 0.2 (0.0-0.4) th/mm3 Baso # (Auto) 0.0 0.0 (0.0-0.2) th/mm3 Comprehensive Metabolic Panel 04/02/18 04/03/18 Range/Units 04:56 03:50 Sodium 140 139 (136-145) meq/L Potassium 3.5 3.6 (3.5-5.1) meq/L Chloride 105 104 (98-107) meq/L Carbon Dioxide 24.8 26.2 (21.0-32.0) meq/L BUN 21 H 21 H (7-18) mg/dL Creatinine 1.54 H 1.48 H (0.60-1.30) mg/dL Calcium 8.2 L 8.1 L (8.5-10.1) mg/dL AST 164 H (15-37) U/L ALT 35 (12-78) U/L Alkaline Phosphatase 111 (45-117) U/L Total Protein 5.2 L (6.4-8.2) g/dL Albumin 2.0 L (3.4-5.0) g/dL Intake and Output 04/02/18 04/03/18 04/03/18 22:59 06:59 14:59 Intake Total 660 / 660 300 / 300 Output Total 275 / 275 520 / 520 Balance 385 / 385 -220 / -220 Intake: IV 260 / 260 Potassium Phosphate Inj 30 MMOL 260 / 260 In NS Inj 250 ML @ 43.333 mls/ hr IV.SIG ONCE ONE Rx#:[id number] Oral 400 / 400 300 / 300 Output: Urine 275 / 275 520 / 520 Stool 0 / 0 Urine/Stool Mix 0 / 0 Other: # Voids 2 # Incontinent Voids 0 # Urine Diapers 0 Date of Last Bowel Movement 03/28/18 03/28/18 # Bowel Movements 0 # Incontinent Bowel Movements 0 Weight 77.5 kg - Imaging and Cardiology Imaging: Impressions Abdomen/Bladder Ultrasound 04/02/18 00:00 CONCLUSION: Ultrasound of the kidneys demonstrate no significant abnormality. There is no hydronephrosis. Head CT 04/02/18 06:40 CONCLUSION: 1. No acute intracranial abnormality is identified. 2. Chronic changes include mild generalized atrophy and mild periventricular white matter low-attenuation most likely representing chronic microvascular ischemia. . Assessment and Plan - Assessment (1) ST elevation myocardial infarction (STEMI) Code(s): I21.3 - ST elevation (STEMI) myocardial infarction of unspecified site Status: Acute (2) History of permanent cardiac pacemaker placement Code(s): Z95.0 - Presence of cardiac pacemaker Status: Acute (3) Cardiac arrest with ventricular fibrillation Code(s): I46.9 - Cardiac arrest, cause unspecified; I49.01 - Ventricular fibrillation Status: Acute (4) History of coronary artery stent placement Code(s): Z95.5 - Presence of coronary angioplasty implant and graft Status: Acute (5) Hyperlipidemia Code(s): E78.5 - Hyperlipidemia, unspecified Status: Acute (6) Hypertension Code(s): I10 - Essential (primary) hypertension Status: Acute (7) Acute respiratory failure Code(s): J96.00 - Acute respiratory failure, unspecified whether with hypoxia or hypercapnia Status: Acute - Plan 1) Vfib arrest Most likely due to coronary dissection 2) Inferior STEMI with coronary dissection s/p KAILA to RCA Significant spasm in multiple vessels due to Vfib arrest/ischemia ASA/Brilinta/Statin/BB MAKSIM-I on hold due to borderline hypotension 3) Encephalopathy Post cardiac arrest, hypothermia, and rewarming Now AAOx3 4) Hypothermia protocol completed 5) PPM interrogated 11 mins of ventricular fibrillation No other events 6) asked about defibrillator placement Vfib arrest due to inferior STEMI with RCA dissection Would not consider him a candidate as area of concern fixed 7) Physical therapy 8) Stable for transfer out of ICU (1) ST elevation myocardial infarction (STEMI) Qualifiers: Involved coronary artery: unspecified coronary artery Qualified Code(s): I21.3 - ST elevation (STEMI) myocardial infarction of unspecified site
--- NOTE | 2018-04-03 12:41 | P.PNCC ---
Subjective Subjective Remarks/Hospital Course: Patient is a 63-year-old male who presents the emergency room via EMS for STEMI alert. As per EMS, patient was with a girlfriend and reported to her that he was not feeling well. He had a syncopal episode. Apparently, patient did not hit his head on the floor, he was lowered to the floor. Patient did lose pulses , bystanders started CPR. When EMS arrived on scene, patient was found to be in V. fib arrest, he was shocked once at 150 and return to pulses. Patient was found to have ST segment elevations in leads II, III, aVF with reciprocal changes. Patient presents the emergency room obtunded, patient unable to provide any HPI. Per ER documentation GCS was 3 following return of spontaneous circulation. Patient was intubated in ER and placed on mechanical ventilation. STEMI alert was called and patient was evaluated by Dr. 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 RCA stenting performed at site of dissection. Patient was started on Versed and fentanyl during cardiac catheterization as he appeared to be gagging and fighting the ventilator. Following procedure he was transferred [place] [facility] [place] evaluated him following his arrival. I personally spoke with Dr. Kline and confirmed GCS 3 on her evaluation following patient's arrival to the ER. Decision was made to initiate hypothermia protocol. I spoke with patient's and son at bedside and they agreed to proceed with Quatro catheter placement and initiation of therapeutic hypothermia. According to patient's he was down for about 5 minutes before EMS arrival and being shocked. He was given bystander CPR by family immediately on going down. 03/30: at target temperature. on low-dose vasopressors intermittently. uop marginal but adequate, likely due to hypothermia. trop increasing still, but no other evidence of coronary ischemia. 03/31: rewarmed. following commands. still on levophed. organ function stable. 04/01: Off norepinephrine. Quattro catheter has been removed. Very weak. Nasogastric tube remains in place. Follows commands. 04/02: Patient became acutely and confused this a.m. Received 1 dose of melatonin overnight. Required dexmedetomidine drip but this is been discontinued. Currently awake and oriented to person place and year. CT brain revealed chronic microvascular changes. No acute findings. Subjective 04/03: Slept poorly overnight. Blood pressure slowly increasing. Okayed by cardiology transfer to intermediate care. Denies chest pain or shortness of breath. On 1 L nasal cannula. Objective Vital Signs / I&O: Vital Signs 04/02/18 14:00 04/02/18 15:55 04/02/18 16:00 Temperature 98.2 F Pulse Rate 94 H 102 H 106 H Respiratory Rate 20 22 Blood Pressure 104/62 Pulse Oximetry 100 04/02/18 18:00 04/02/18 19:00 04/02/18 20:00 Temperature 99.9 F H Pulse Rate 101 H 117 H Respiratory Rate 21 Blood Pressure 101/62 Pulse Oximetry 93 L 97 04/02/18 22:00 04/03/18 00:00 04/03/18 02:00 Temperature 98.2 F Pulse Rate 109 H 101 H 97 H Respiratory Rate 22 Blood Pressure 95/61 L Pulse Oximetry 95 04/03/18 04:00 04/03/18 06:00 04/03/18 06:41 Temperature 98.5 F Pulse Rate 92 H 93 H Respiratory Rate 19 Blood Pressure 98/61 L Pulse Oximetry 92 L 93 L 04/03/18 08:00 04/03/18 08:32 04/03/18 10:00 Temperature 98.2 F Pulse Rate 92 H 95 H 105 H Respiratory Rate 24 18 Blood Pressure 108/69 Pulse Oximetry 04/03/18 12:00 Temperature Pulse Rate 96 H Respiratory Rate Blood Pressure Pulse Oximetry Intake & Output 04/02/18 04/03/18 04/03/18 18:59 06:59 18:59 Intake Total 660 / 660 300 / 300 Output Total 275 / 275 520 / 520 Balance 385 / 385 -220 / -220 Weight 77.5 kg Intake: IV 260 / 260 Potassium Phosphate Inj 30 MMOL 260 / 260 In NS Inj 250 ML @ 43.333 mls/ hr IV.SIG ONCE ONE Rx#:[id number] Oral 400 / 400 300 / 300 Output: Urine 275 / 275 520 / 520 Stool 0 / 0 Urine/Stool Mix 0 / 0 Other: # Voids 2 # Incontinent Voids 0 # Urine Diapers 0 Date of Last Bowel Movement 03/28/18 03/28/18 # Bowel Movements 0 # Incontinent Bowel Movements 0 Result Diagrams: 04/03/18 03:50 04/03/18 03:50 Other Results: Microbiology 03/30/18 20:45 Blood - Line Aerobic Blood Culture - Preliminary No growth in 4 days 03/30/18 20:45 Blood - Line Anaerobic Blood Culture - Preliminary No growth in 4 days Imaging: Chest X-Ray 03/29/18 11:24 CONCLUSION: 1. The endotracheal tube and NG tube are in good position. 2. No evidence of pneumothorax. 3. No acute pulmonary infiltrates. Abdomen X-Ray 03/31/18 15:51 CONCLUSION: Dobbhoff tube in the stomach. Abdomen X-Ray 04/01/18 00:00 CONCLUSION: Dobbhoff tube in the stomach. Abdomen/Bladder Ultrasound 04/02/18 00:00 CONCLUSION: Ultrasound of the kidneys demonstrate no significant abnormality. There is no hydronephrosis. Head CT 04/02/18 06:40 CONCLUSION: 1. No acute intracranial abnormality is identified. 2. Chronic changes include mild generalized atrophy and mild periventricular white matter low-attenuation most likely representing chronic microvascular ischemia. . Objective Remarks: GENERAL: 63-year-old male resting in bed in no acute distress HEENT: Normocephalic. Atraumatic. Pupils equal, round, reactive, conjugate. Mucous membranes are moist G-tube in place NECK: Trachea is midline. There is no JVD. CHEST: Essentially clear to auscultation bilateral without wheezes rales rhonchi CARDIOVASCULAR: Tachycardic, regular rhythm. S1, S2. No S4 per ABDOMEN: Soft, nontender, nondistended. No guarding. MUSCULOSKELETAL: Pulses 2+. No peripheral edema. NEUROLOGICAL: Cranial nerves II through XII grossly intact. Strength is equal and symmetric. Normal sensation. Assessment and Plan - Assessment and Plan Plan: Neuro/Psych: Hypoxic ischemic encephalopathy- improving ICU delirium Acetaminophen 650 mg by tube every 4 hours as needed fever Oxycodone 5 mg by tube every 4 hours as needed pain 1 through 5 Morphine sulfate 2 mg IV every 2 hours as needed pain 6-10 s/p therapetuic hypothermia. rewarmed AM 03/31. Written for melatonin 5 mg at night as needed insomnia Sleep hygiene stressed Respiratory: Acute hypoxic and hypercarbic respiratory failure Incentive spirometry while awake Nasal cannula to maintain saturations greater than equal to 92% Head of bed elevated Albuterol/ipratropium aerosols every 6 hours with albuterol aerosols every 2 hours as needed dyspnea Cardiovascular: Out of hospital ventricular fibrillation cardiac arrest Cardiogenic shock Acute systolic and diastolic heart failure ST elevation myocardial infarction Hyperlipidemia RCA dissection Status post RCA stent 03/29 for dissection 2D echocardiogram revealed EF of 40-45 %. Global hypokinesis. Grade 1 diastolic dysfunction. s/p target temperature monitoring Continue ticagrelor 90 mg twice daily and aspirin 81 mg daily for dual action platelet therapy for drug-eluting stent Continue atorvastatin 80 mg daily for hyperlipidemia 11-minute V. fib arrest document by pacemaker Currently on metoprolol tartrate 6.25 mg twice daily. No MAKSIM inhibitor due to hypotension Renal Acute kidney injury-creatinine currently 1.54 Secondary to cardiogenic shock from out of hospital cardiac arrest Discontinued Tellez Trend creatinine -- Strict I/Os Urine eosinophils, sodium and creatinine pending FEN/GI: Advance diet as tolerated ICU electrolyte protocol Daily BMP, magnesium, phosphorus Received 30 milliequivalents potassium chloride and 2 g mag sulfate IV x1 now. Recheck in a.m. Heme/ID: Thrombocytopenia Normocytic anemia Daily CBC No indication for transfusion of blood products. Endocrine: Hyperglycemia of critical illness -- SSI Prophylaxis: GI Prophylaxis Famotidine DVT Prophylaxis -- SCDs Enoxaparin Lines: Quatro Cool catheter 03/29- Tellez 03/29 discontinued Level 2 follow-up. Stable from critical care standpoint. Assign care to hospitalist in a.m. 04/04.
[2018-04-03] MEDS: Mag Sulf 1 gm/100 ml Premix 100 ML IV.SIG SCH ×2 (14:05→15:58)
[2018-04-03] MEDS: Docusate Sodium Liq 100 MG/10 ML UDC PO SCH ×2 (18:46→21:10)
[2018-04-03] MEDS ORDERED: Acetaminophen 325 MG Tablet PO PRN (20:07)
[2018-04-04] MEDS: Oral Hygiene Kit OROPHARYNG SCH ×4 (00:33→23:01)
[2018-04-04] MEDS: Melatonin 5 MG Tablet PO PRN ×2 (01:02→21:18)
[2018-04-04] MEDS: Chlorhexidine 0.12% Oral Kit 15 ML UDC OROPHARYNG SCH ×2 (08:02→20:45)
[2018-04-04] MEDS: Docusate Sodium Liq 100 MG/10 ML UDC PO SCH ×2 (08:29→21:16)
[2018-04-04] MEDS: Metoprolol Tartrate 25 MG Tablet PO SCH ×2 (08:31→21:14)
[2018-04-04] MEDS: Enoxaparin Inj 40 MG/0.4 ML Syringe SQ SCH (08:32)
[2018-04-04 08:54] LABS: Baso % (Auto) 0.2 % (0.0-2.0); Eos # (Auto) 0.2 th/mm3 (0.0-0.4); Eos % (Auto) 2.9 % (0.0-4.0); Hematocrit 27.3 % (39.0-51.0); Hemoglobin 9.3 gm/dL (13.0-17.0); Lymph # (Auto) 1.1 th/mm3 (1.0-4.8); Mean Corpuscular HGB Conc 34.2 % (32.0-36.0); Mean Corpuscular Hemoglobin 32.8 pg (27.0-34.0); Mean Platelet Volume 8.3 fL (7.0-11.0); Mono % (Auto) 13.2 % (0.0-8.0); Neut # (Auto) 5.5 th/mm3 (1.8-7.7); Neut % (Auto) 69.7 % (16.0-70.0); Platelet Count 169 th/mm3 (150-450); Red Blood Count 2.84 mil/mm3 (4.50-5.90); Red Cell Distribution Width 14.9 % (11.6-17.2); White Blood Count 7.9 th/mm3 (4.0-11.0)
[2018-04-04 09:00] LABS: Calcium 8.5 mg/dL (8.5-10.1); Magnesium 1.9 mg/dL (1.5-2.5); Phosphorus 3.6 mg/dL (2.5-4.9)
--- NOTE | 2018-04-04 09:50 | P.PN ---
Subjective Interval history: City Manager Notes: Patient is a 63-year-old male who presents the emergency room via EMS for STEMI alert. As per EMS, patient was with a girlfriend and reported to her that he was not feeling well. He had a syncopal episode. Apparently, patient did not hit his head on the floor, he was lowered to the floor. Patient did lose pulses , bystanders started CPR. When EMS arrived on scene, patient was found to be in V. fib arrest, he was shocked once at 150 and return to pulses. Patient was found to have ST segment elevations in leads II, III, aVF with reciprocal changes. Patient presents the emergency room obtunded, patient unable to provide any HPI. Per ER documentation GCS was 3 following return of spontaneous circulation. Patient was intubated in ER and placed on mechanical ventilation. STEMI alert was called and patient was evaluated by Dr. 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 RCA stenting performed at site of dissection. Patient was started on Versed and fentanyl during cardiac catheterization as he appeared to be gagging and fighting the ventilator. Following procedure he was transferred to [facility] where I evaluated him following his arrival. I personally spoke with Dr. Kline and confirmed GCS 3 on her evaluation following patient's arrival to the ER. Decision was made to initiate hypothermia protocol. I spoke with patient's and son at bedside and they agreed to proceed with Quatro catheter placement and initiation of therapeutic hypothermia. According to patient's he was down for about 5 minutes before EMS arrival and being shocked. He was given bystander CPR by family immediately on going down. 03/30: at target temperature. on low-dose vasopressors intermittently. uop marginal but adequate, likely due to hypothermia. trop increasing still, but no other evidence of coronary ischemia. 03/31: rewarmed. following commands. still on levophed. organ function stable. 04/01: Off norepinephrine. Quattro catheter has been removed. Very weak. Nasogastric tube remains in place. Follows commands. 04/02: Patient became acutely and confused this a.m. Received 1 dose of melatonin overnight. Required dexmedetomidine drip but this is been discontinued. Currently awake and oriented to person place and year. CT brain revealed chronic microvascular changes. No acute findings. 04/03: Slept poorly overnight. Blood pressure slowly increasing. Okayed by cardiology transfer to intermediate care. Denies chest pain or shortness of breath. On 1 L nasal cannula. Hospitalist Notes: 04/04: Patient stable in his bedroom, in the presence of his , no nausea, vomit or diarrhea. Physical Exam Vital signs: Vital Signs 04/03/18 10:00 04/03/18 11:00 04/03/18 12:00 Temperature 97.7 F Pulse Rate 105 H 103 H 99 H Respiratory Rate 31 H 41 H Blood Pressure 109/66 110/69 Pulse Oximetry 96 97 04/03/18 13:00 04/03/18 14:00 04/03/18 14:35 Temperature Pulse Rate 104 H 109 H 101 H Respiratory Rate 36 H 38 H 18 Blood Pressure 99/67 L 121/78 Pulse Oximetry 94 L 96 04/03/18 15:00 04/03/18 16:00 04/03/18 17:00 Temperature 98.0 F Pulse Rate 107 H 102 H 103 H Respiratory Rate 23 23 24 Blood Pressure 110/67 108/68 104/66 Pulse Oximetry 88 L 98 93 L 04/03/18 18:00 04/03/18 19:00 04/03/18 20:00 Temperature 98.3 F Pulse Rate 101 H 104 H 109 H Respiratory Rate 23 31 H 33 H Blood Pressure 108/70 114/76 Pulse Oximetry 98 98 96 04/03/18 20:01 04/03/18 21:00 04/03/18 22:00 Temperature Pulse Rate 109 H 106 H 110 H Respiratory Rate 30 H 24 Blood Pressure 129/70 110/74 Pulse Oximetry 97 96 04/03/18 22:02 04/03/18 23:00 04/04/18 00:00 Temperature 97.7 F Pulse Rate 106 H 102 H 111 H Respiratory Rate 20 18 Blood Pressure 111/66 Pulse Oximetry 97 96 04/04/18 01:00 04/04/18 02:00 04/04/18 03:00 Temperature Pulse Rate 102 H 101 H 96 H Respiratory Rate Blood Pressure Pulse Oximetry 04/04/18 04:00 04/04/18 05:00 04/04/18 06:00 Temperature 98.0 F Pulse Rate 102 H 88 97 H Respiratory Rate 16 Blood Pressure 100/60 Pulse Oximetry 95 Intake & Output 04/03/18 04/04/18 04/04/18 18:59 06:59 18:59 Intake Total 1000 / 1000 480 / 480 Output Total 400 / 400 100 / 100 Balance 600 / 600 380 / 380 Weight 73 kg Intake: IV 100 / 100 Magnesium Sulfate 1 gm/D5W 100 100 / 100 ml Premix 100 ML @ 100 mls/hr IV.SIG Q1H OMAR Rx#:[id number] Oral 900 / 900 480 / 480 Output: Urine 400 / 400 100 / 100 Other: # Incontinent Voids 1 Date of Last Bowel Movement 04/04/18 Narrative: GENERAL: This is a well-nourished, well-developed patient, in no apparent distress. CARDIOVASCULAR: Regular rate and rhythm without murmurs, gallops, or rubs. RESPIRATORY: Clear to auscultation. Breath sounds equal bilaterally. No wheezes , rales, or rhonchi. GASTROINTESTINAL: Abdomen soft, non-tender, nondistended. Normal active bowel sounds MUSCULOSKELETAL: Extremities without clubbing, cyanosis, or edema. NEURO: Alert & Oriented x4 to person, place, time, situation. Moves all ext x4 - Urinary Catheter Management Indwelling Temp Sensing Catheter Cath placed during this visit: yes, but has since been removed by the nurse Reason for continuing: Hourly intake/output Insertion date: 03/29/18 Insertion time: 15:00 Removal date: 04/02/18 Removal time: 08:00 Results - Labs CBC & Chem 7: 04/04/18 08:16 04/04/18 08:16 Laboratory Results - last 24 hr 04/04/18 04/04/18 08:16 08:16 WBC 7.9 RBC 2.84 L Hgb 9.3 L Hct 27.3 L MCV 96.0 MCH 32.8 MCHC 34.2 RDW 14.9 Plt Count 169 MPV 8.3 Neut % (Auto) 69.7 Lymph % (Auto) 14.0 [place] % (Auto) 13.2 H Eos % (Auto) 2.9 Baso % (Auto) 0.2 Neut # (Auto) 5.5 Lymph # (Auto) 1.1 [place] # (Auto) 1.0 H Eos # (Auto) 0.2 Baso # (Auto) 0.0 WBC Differential . Differential Comment Auto diff final Sodium 137 Potassium 4.0 Chloride 102 Carbon Dioxide 25.0 Anion Gap 10 BUN 15 Creatinine 1.27 Estimated GFR 57 L Random Glucose 83 Calcium 8.5 Phosphorus 3.6 Magnesium 1.9 Microbiology 03/30/18 20:45 Blood - Line Aerobic Blood Culture - Preliminary No growth in 4 days 03/30/18 20:45 Blood - Line Anaerobic Blood Culture - Preliminary No growth in 4 days - Imaging Chest X-Ray 03/29/18 11:24 CONCLUSION: 1. The endotracheal tube and NG tube are in good position. 2. No evidence of pneumothorax. 3. No acute pulmonary infiltrates. Abdomen X-Ray 04/01/18 00:00 CONCLUSION: Dobbhoff tube in the stomach. Abdomen/Bladder Ultrasound 04/02/18 00:00 CONCLUSION: Ultrasound of the kidneys demonstrate no significant abnormality. There is no hydronephrosis. Head CT 04/02/18 06:40 CONCLUSION: 1. No acute intracranial abnormality is identified. 2. Chronic changes include mild generalized atrophy and mild periventricular white matter low-attenuation most likely representing chronic microvascular ischemia. . - Procedures Status post RCA stent 03/29 for dissection Assessment and Plan - Plan 1. Hypoxic Ischemic Encephalopathy/Delirium s/p therapetuic hypothermia. rewarmed AM 03/31. 2. Acute Hypoxic and hypercarbic respiratory failure Continue Bronchodilator, Mucolytic, incentive spirometry, oxygen as needed to Keep oxygen saturation equal of 92%. 3. Status post Ventricular Fibrillation Cardiac Arrest/Cardiogenic Shock/Acute systolic and diastolic heart failure ST elevation SD/Hyperlipidemia/RCA dissection Status post RCA stent 03/29 for dissection 2D echocardiogram revealed EF of 40-45 %. Global hypokinesis. Grade 1 diastolic dysfunction. s/p target temperature monitoring Continue ticagrelor 90 mg twice daily and aspirin 81 mg daily for dual action platelet therapy for drug-eluting stent Continue atorvastatin 80 mg daily for hyperlipidemia 11-minute V. fib arrest document by pacemaker Currently on metoprolol tartrate 6.25 mg twice daily. No MAKSIM inhibitor due to hypotension 4. Acute Kidney Injury secondary to cardiogenic shock continue following Creatinine level 5. Thrombocytopenia/Anemia Prophylaxis: GI Prophylaxis Famotidine DVT Prophylaxis -- SCDs Enoxaparin Code Status: Full code. Discussed Condition With: patient, his and Nurse. Discharge Planning: Once cleared by experience specialist. Expected by tomorrow.
[2018-04-04] MEDS: Famotidine 20 MG Tablet PO SCH (21:14)
--- NOTE | 2018-04-04 21:35 | P.PNCA ---
Subjective Interval history: No events overnight Feeling much better, up and walking with PT with walker Medications and Allergies Active Medications: Active Medications Acetaminophen (Tylenol) 650 mg PO Q6H PRN PRN Reason: FEVER OR PAIN 1-10 Last Admin: 04/04/18 08:36 Dose: 650 mg Albuterol (Albuterol Neb (Prn)) 2.5 mg NEB Q2HR NEB PRN PRN Reason: DYSPNEA Albuterol (Duoneb Neb (Mendez)) 1 ampul NEB Q6HR WHILE AWAKE NEB [facility] Last Admin: 04/04/18 20:47 Dose: Not Given Artificial Tears (Lacrilube Opth Oint) 1 applicatio EACH EYE Q4H PRN PRN Reason: WHILE ON NMB Aspirin (Aspirin Chew) 81 mg PO DAILY [facility] Last Admin: 04/04/18 08:30 Dose: 81 mg Atorvastatin Calcium (Lipitor) 80 mg PO HS [facility] Last Admin: 04/04/18 21:13 Dose: 80 mg Bisacodyl (Dulcolax Ec) 10 mg PO DAILY PRN PRN Reason: CONSTIPATION Calcium Carbonate (Tums Chew) 500 mg CHEW Q6H PRN PRN Reason: DYSPEPSIA Last Admin: 04/03/18 19:29 Dose: 500 mg Chlorhexidine Gluconate (Peridex 0.12% Oral Kit) 15 ml OROPHARYNG BID@0800, 2000 [facility] Last Admin: 04/04/18 20:45 Dose: Not Given Docusate Sodium (Colace Liq) 100 mg PO BID [facility] Last Admin: 04/04/18 21:16 Dose: Not Given Enoxaparin Sodium (Lovenox Inj) 40 mg SQ DAILY [facility] Last Admin: 04/04/18 08:32 Dose: 40 mg Famotidine (Pepcid) 20 mg PO HS [facility] Last Admin: 04/04/18 21:14 Dose: 20 mg Magnesium Sulfate 4 gm/ Sodium (Chloride) 100 mls @ 50 mls/hr IV.SIG UNSCH PRN PRN Reason: For Magnesium 0.9 - 1.1 mg/dL Potassium Chloride (Kcl 40 Meq Premix Inj) 40 meq in 100 mls @ 25 mls/hr IV.SIG Q2H PRN PRN Reason: For Potassium 2.8 - 3.2 mEq/L Potassium Chloride (Kcl 20 Meq Premix Inj) 20 meq in 100 mls @ 50 mls/hr IV.SIG Q2H PRN PRN Reason: For Potassium 3.3 - 3.5 mEq/L Potassium Chloride (Kcl 40 Meq Premix Inj) 40 meq in 100 mls @ 25 mls/hr IV.SIG UNSCH PRN PRN Reason: For Potassium 3.3 - 3.5 mEq/L Potassium Chloride (Kcl 20 Meq Premix Inj) 20 meq in 100 mls @ 50 mls/hr IV.SIG Q2H PRN PRN Reason: For Potassium 2.8 - 3.2 mEq/L Potassium Phosphate 30 mmol/ (Sodium Chloride) 260 mls @ 42 mls/hr IV.SIG UNSCH PRN PRN Reason: SEE LABEL COMMENTS Sodium Phosphate 30 mmol/ (Sodium Chloride) 260 mls @ 42 mls/hr IV.SIG UNSCH PRN PRN Reason: For Phosphorus < 2.5 mg/dL Magnesium Sulfate 2 gm/ Sodium (Chloride) 100 mls @ 50 mls/hr IV.SIG UNSCH PRN PRN Reason: For Magnesium 1.2 - 1.6 mg/dL Sodium Chloride (Ns Inj) 500 mls @ 0 mls/hr IV.SIG BOLUS [facility] Lisinopril (Prinivil) 5 mg PO DAILY [facility] Magnesium Oxide (Mag-Ox) 800 mg PO UNSCH PRN PRN Reason: For Magnesium 1.2 - 1.6 mg/dL Melatonin (Melatonin) 5 mg PO HS PRN PRN Reason: INSOMNIA Last Admin: 04/04/18 21:18 Dose: 5 mg Metoclopramide HCl (Reglan Inj) 10 mg IV.PUSH Q6H PRN PRN Reason: NAUSEA OR VOMITING Metoprolol Tartrate (Lopressor) 6.25 mg PO BID [facility] Last Admin: 04/04/18 21:14 Dose: 6.25 mg Miscellaneous Information (Misc Mix All Iv Meds In Ns) 1 each MISCELLANE UNSCH PRN PRN Reason: SEE LABEL COMMENTS Miscellaneous Medication () 1 each OROPHARYNG 0000,0400,1200,1600 [facility] Last Admin: 04/04/18 16:17 Dose: Not Given Morphine Sulfate (Morphine Inj) 2 mg IV.PUSH Q2H PRN PRN Reason: Pain 6 through 10 Last Admin: 04/01/18 22:38 Dose: 2 mg Ondansetron HCl (Zofran Inj) 4 mg IV.PUSH Q6H PRN PRN Reason: NAUSEA OR VOMITING Oxycodone HCl (Roxicodone Intensol Liq) 5 mg PO Q4H PRN PRN Reason: Pain 1 through 5 Last Admin: 04/03/18 11:58 Dose: 5 mg Potassium Bicarb/Potassium Chloride (K-Lyte Cl Eff) 50 meq PO UNSCH PRN PRN Reason: For Potassium 3.3 - 3.5 mEq/L Potassium Phosphate (K-Phos Original) 2,000 mg PO Q4H PRN PRN Reason: Phosphorus Less Than 2.5 mg/dL Potassium Phosphate (K-Phos Original) 2,000 mg PO UNSCH PRN PRN Reason: SEE LABEL COMMENTS Sodium Bicarbonate (Sodium Bicarbonate 8.4% Inj) 100 meq IV.PUSH NOW [facility] Sodium Chloride (Ns Flush) 2 ml IV.FLUSH BID [facility] Last Admin: 04/04/18 21:16 Dose: 2 ml Sodium Chloride (Ns Flush) 2 ml IV.FLUSH PRN PRN PRN Reason: FLUSH AFTER USING IV ACCESS Ticagrelor (Brilinta) 90 mg PO BID [facility] Last Admin: 04/04/18 21:14 Dose: 90 mg Allergies Allergy/AdvReac Type Severity Reaction Status Date / Time No Allergy Information Allergy Verified 03/29/18 11:38 Available Home Medications Medication Instructions Recorded Confirmed Type Unable to Obtain Home Meds 03/29/18 03/29/18 History Physical Exam Vital signs: Vital Signs 04/03/18 22:00 04/03/18 22:02 04/03/18 23:00 Temperature Pulse Rate 110 H 106 H 102 H Respiratory Rate 20 Blood Pressure Pulse Oximetry 97 04/04/18 00:00 04/04/18 01:00 04/04/18 02:00 Temperature 97.7 F Pulse Rate 111 H 102 H 101 H Respiratory Rate 18 Blood Pressure 111/66 Pulse Oximetry 96 04/04/18 03:00 04/04/18 04:00 04/04/18 05:00 Temperature 98.0 F Pulse Rate 96 H 102 H 88 Respiratory Rate 16 Blood Pressure 100/60 Pulse Oximetry 95 04/04/18 06:00 04/04/18 07:00 04/04/18 08:00 Temperature 98.0 F Pulse Rate 97 H 96 H 74 Respiratory Rate 18 Blood Pressure 115/67 Pulse Oximetry 95 95 04/04/18 09:00 04/04/18 10:00 04/04/18 11:00 Temperature Pulse Rate 72 74 87 Respiratory Rate Blood Pressure Pulse Oximetry 04/04/18 12:00 04/04/18 15:00 04/04/18 16:00 Temperature 97.4 F L 97.6 F Pulse Rate 72 109 H 76 Respiratory Rate 16 16 Blood Pressure 104/69 110/71 Pulse Oximetry 98 96 04/04/18 17:00 04/04/18 18:00 04/04/18 19:00 Temperature Pulse Rate 92 H 101 H Respiratory Rate Blood Pressure Pulse Oximetry 98 04/04/18 20:00 04/04/18 20:46 Temperature 98.3 F Pulse Rate 83 Respiratory Rate 16 Blood Pressure 125/77 Pulse Oximetry 96 98 Intake & Output 04/04/18 04/04/18 04/05/18 06:59 18:59 06:59 Intake Total 480 / 480 Output Total 100 / 100 Balance 380 / 380 Weight 73 kg Intake: Oral 480 / 480 Output: Urine 100 / 100 Other: # Incontinent Voids 1 Date of Last Bowel Movement 04/04/18 04/04/18 04/04/18 Narrative: GENERAL: This is a well-nourished, well-developed patient, in no apparent distress. CARDIOVASCULAR: Regular rate and rhythm without murmurs, gallops, or rubs. RESPIRATORY: Clear to auscultation. Breath sounds equal bilaterally. No wheezes , rales, or rhonchi. GASTROINTESTINAL: Abdomen soft, non-tender, nondistended. Normal active bowel sounds MUSCULOSKELETAL: Extremities without clubbing, cyanosis, or edema. NEURO: Alert & Oriented x4 to person, place, time, situation. Moves all ext x4 - Urinary Catheter Management Indwelling Temp Sensing Catheter Cath placed during this visit: yes, but has since been removed by the nurse Reason for continuing: Hourly intake/output Insertion date: 03/29/18 Insertion time: 15:00 Removal date: 04/02/18 Removal time: 08:00 Results 04/04/18 08:16 04/04/18 08:16 CBC 04/03/18 04/04/18 Range/Units 03:50 08:16 WBC 9.6 7.9 (4.0-11.0) th/mm3 RBC 2.65 L 2.84 L (4.50-5.90) mil/mm3 Hgb 8.8 L 9.3 L (13.0-17.0) gm/dL Hct 25.3 L 27.3 L (39.0-51.0) % Plt Count 146 L 169 (150-450) th/mm3 Neut # (Auto) 7.5 5.5 (1.8-7.7) th/mm3 Lymph # (Auto) 1.2 1.1 (1.0-4.8) th/mm3 [place] # (Auto) 0.8 1.0 H (0.0-0.9) th/mm3 Eos # (Auto) 0.2 0.2 (0.0-0.4) th/mm3 Baso # (Auto) 0.0 0.0 (0.0-0.2) th/mm3 Comprehensive Metabolic Panel 04/03/18 04/04/18 Range/Units 03:50 08:16 Sodium 139 137 (136-145) meq/L Potassium 3.6 4.0 (3.5-5.1) meq/L Chloride 104 102 (98-107) meq/L Carbon Dioxide 26.2 25.0 (21.0-32.0) meq/L BUN 21 H 15 (7-18) mg/dL Creatinine 1.48 H 1.27 (0.60-1.30) mg/dL Calcium 8.1 L 8.5 (8.5-10.1) mg/dL Intake and Output 04/04/18 04/04/18 04/04/18 06:59 14:59 22:59 Intake Total 480 / 480 Output Total 100 / 100 Balance 380 / 380 Intake: Oral 480 / 480 Output: Urine 100 / 100 Other: # Incontinent Voids 1 Date of Last Bowel Movement 04/04/18 04/04/18 04/04/18 Weight 73 kg Assessment and Plan - Assessment (1) ST elevation myocardial infarction (STEMI) Code(s): I21.3 - ST elevation (STEMI) myocardial infarction of unspecified site Status: Acute (2) History of permanent cardiac pacemaker placement Code(s): Z95.0 - Presence of cardiac pacemaker Status: Acute (3) Cardiac arrest with ventricular fibrillation Code(s): I46.9 - Cardiac arrest, cause unspecified; I49.01 - Ventricular fibrillation Status: Acute (4) History of coronary artery stent placement Code(s): Z95.5 - Presence of coronary angioplasty implant and graft Status: Acute (5) Hyperlipidemia Code(s): E78.5 - Hyperlipidemia, unspecified Status: Acute (6) Hypertension Code(s): I10 - Essential (primary) hypertension Status: Acute (7) Acute respiratory failure Code(s): J96.00 - Acute respiratory failure, unspecified whether with hypoxia or hypercapnia Status: Acute - Plan 1) Vfib arrest Due to coronary dissection 2) Inferior STEMI with coronary dissection s/p KAILA to RCA Significant spasm in multiple vessels due to Vfib arrest/ischemia ASA/Brilinta/Statin/BB Add MAKSIM-I 3) Encephalopathy Post cardiac arrest, hypothermia, and rewarming Now AAOx3 4) Hypothermia protocol completed 5) PPM interrogated 11 mins of ventricular fibrillation No other events 6) asked about defibrillator placement Vfib arrest due to inferior STEMI with RCA dissection Would not consider him a candidate as area of concern fixed 7) Physical therapy 8) Plan for discharge tomorrow if possible (1) ST elevation myocardial infarction (STEMI) Qualifiers: Involved coronary artery: unspecified coronary artery Qualified Code(s): I21.3 - ST elevation (STEMI) myocardial infarction of unspecified site
[2018-04-05] MEDS: Oral Hygiene Kit OROPHARYNG SCH ×3 (04:03→17:15)
[2018-04-05] MEDS ORDERED: Lisinopril 5 MG Tablet PO SCH (09:00)
[2018-04-05] MEDS: Enoxaparin Inj 40 MG/0.4 ML Syringe SQ SCH (09:01)
[2018-04-05] MEDS: Metoprolol Tartrate 25 MG Tablet PO SCH (09:01)
[2018-04-05] MEDS: Docusate Sodium Liq 100 MG/10 ML UDC PO SCH (09:01)
[2018-04-05 09:50] VITALS: O2SAT 97
[2018-04-05] MEDS: Chlorhexidine 0.12% Oral Kit 15 ML UDC OROPHARYNG SCH (10:22)
[2018-04-05 11:16] LABS: Hemoglobin 10.6 gm/dL (13.0-17.0); Mean Corpuscular HGB Conc 34.1 % (32.0-36.0); Mean Corpuscular Hemoglobin 33.2 pg (27.0-34.0); Mean Corpuscular Volume 97.4 fL (80.0-100.0); Mean Platelet Volume 8.4 fL (7.0-11.0); Platelet Count 233 th/mm3 (150-450); Red Blood Count 3.18 mil/mm3 (4.50-5.90); Red Cell Distribution Width 15.5 % (11.6-17.2); White Blood Count 9.8 th/mm3 (4.0-11.0)
[2018-04-05 11:31] LABS: Calcium 9.1 mg/dL (8.5-10.1); Carbon Dioxide 28.3 meq/L (21.0-32.0); Potassium 4.1 meq/L (3.5-5.1)
[2018-04-05 12:42] VITALS: RESP 20
[2018-04-05 16:03] VITALS: BP 102/58; PULSE 88; TEMP 98.5
--- NOTE | 2018-04-05 18:41 | P.DS ---
Date of admission: 03/29/18 11:53 Primary care physician: UNKNOWN Brief History from admission: This patient is a 63-year-old male with a diagnosis of coronary artery disease status post VA 1 year ago and had 2 stents placed during that time. He is status post pacemaker placement. The patient presented to our emergency department as a STEMI alert. He underwent cardiopulmonary arrest at home and CPR was initiated by patient's family who were with him there. The patient was initially brought in obtunded, he was found to have ST segment elevations in 2 3 and aVF with reciprocal changes. DS: Medications - Discharge Medications Prescriptions: aspirin 81 mg PO DAILY #30 tab atorvastatin 80 mg PO HS #30 tab lisinopril 5 mg PO DAILY #30 tab metoprolol tartrate 6.25 mg PO BID #60 tab DS: Summary Hospital Course: This patient is a 63-year-old male with a diagnosis of coronary artery disease status post VA 1 year ago and had 2 stents placed during that time. He is status post pacemaker placement. The patient presented to our emergency department as a STEMI alert. He underwent cardiopulmonary arrest at home and CPR was initiated by patient's family who were with him there. The patient was initially brought in obtunded, he was found to have ST segment elevations in 2 3 and aVF with reciprocal changes. 1. STEMI 2. V. fib due to coronary dissection with cardio pulmonary arrest 3. Coronary artery disease 4. Acute encephalopathy secondary to #1 5. Acute kidney injury secondary to cardiac arrest The patient initially was in the intensive care unit. Initially the patient was encephalopathic. His mental status has improved after cardiac intervention. Cardiology immediately evaluated the patient and he underwent cardiac catheterization which showed RCA dissection, he ended up having a drug- eluting stent placed to the RCA. The patient's pacemaker was interrogated which showed 11 minutes of ventricular fibrillation. He was monitored on telemetry and there have not been any significant events noted on telemetry. The plan is for the patient to continue aspirin, Brilinta, statin, and beta- emi, MAKSIM inhibitor as per cardiology recommendations. The patient serum creatinine peaked at 1.5 and is now downtrending to 1.4. Recommend that he follows up with his primary care doctor who is Dr. Paulo Shah within 1 week. A renal panel should be ordered to evaluate the patient's kidney function since he is currently on lisinopril. The patient denies any current chest pain. He does not have any shortness of breath with ambulation. He will be discharged home today. He was advised to follow-up with his primary care doctor within 1 week. - Time Spent with Patient Total time spent providing and/or coordinating discharge services: Greater than 30 minutes - Quality: VTE Deep Vein Thrombosis/Pulmonary Embolism Present on Admission: No Exam Vital signs: Vital Signs 04/04/18 19:00 04/04/18 20:00 04/04/18 20:46 Temperature 98.3 F Pulse Rate 75 85 Respiratory Rate 16 Blood Pressure 125/77 Pulse Oximetry 98 96 98 04/04/18 21:00 04/04/18 22:00 04/04/18 23:00 Temperature Pulse Rate 87 76 78 Respiratory Rate Blood Pressure Pulse Oximetry 04/05/18 00:00 04/05/18 01:00 04/05/18 02:00 Temperature 98.9 F Pulse Rate 94 H 90 94 H Respiratory Rate 17 Blood Pressure 86/50 L Pulse Oximetry 97 04/05/18 03:00 04/05/18 04:00 04/05/18 05:00 Temperature 97.6 F Pulse Rate 93 H 93 H 89 Respiratory Rate 18 Blood Pressure 106/55 L Pulse Oximetry 95 04/05/18 06:00 04/05/18 07:00 04/05/18 08:00 Temperature 98.2 F Pulse Rate 93 H 76 91 H Respiratory Rate 18 Blood Pressure 110/55 L Pulse Oximetry 97 97 04/05/18 09:00 04/05/18 10:00 04/05/18 11:00 Temperature Pulse Rate 90 92 H 86 Respiratory Rate Blood Pressure Pulse Oximetry 04/05/18 12:00 04/05/18 13:00 04/05/18 16:00 Temperature 98.6 F 98.5 F Pulse Rate 81 86 88 Respiratory Rate 20 20 Blood Pressure 99/68 L 102/58 L Pulse Oximetry 97 97 Intake & Output 04/04/18 04/05/18 04/05/18 18:59 06:59 18:59 Intake Total 240 / 240 800 / 800 Output Total 700 / 700 Balance -460 / -460 800 / 800 Weight 72.5 kg Intake: Oral 240 / 240 800 / 800 Output: Urine 700 / 700 Other: # Voids 4 Date of Last Bowel Movement 04/04/18 04/04/18 Narrative: General patient in no acute distress HEENT extraocular movements are intact, clear oropharyngeal mucosa, no JVD Cardiovascular S1-S2 audible, RRR, no murmurs rubs or gallops Respiratory clear to auscultation bilaterally Abdomen soft, nontender, nondistended, normal bowel sounds Extremities no edema 2+ distal pulses in bilateral upper and lower extremities Neuro cranial nerves II through XII intact Results Procedures completed during hospitalization: Status post RCA stent 03/29 for dissection Labs on day of discharge: Labs from last 24 hours 04/05/18 04/05/18 10:53 10:53 WBC 9.8 RBC 3.18 L Hgb 10.6 L Hct 31.0 L MCV 97.4 MCH 33.2 MCHC 34.1 RDW 15.5 Plt Count 233 D MPV 8.4 Sodium 137 Potassium 4.1 Chloride 100 Carbon Dioxide 28.3 Anion Gap 9 BUN 14 Creatinine 1.40 H Estimated GFR 51 L Random Glucose 110 H Calcium 9.1 - Impressions ITS Impressions Chest X-Ray 03/29/18 11:24 CONCLUSION: 1. The endotracheal tube and NG tube are in good position. 2. No evidence of pneumothorax. 3. No acute pulmonary infiltrates. Abdomen X-Ray 04/01/18 00:00 CONCLUSION: Dobbhoff tube in the stomach. Abdomen/Bladder Ultrasound 04/02/18 00:00 CONCLUSION: Ultrasound of the kidneys demonstrate no significant abnormality. There is no hydronephrosis. Head CT 04/02/18 06:40 CONCLUSION: 1. No acute intracranial abnormality is identified. 2. Chronic changes include mild generalized atrophy and mild periventricular white matter low-attenuation most likely representing chronic microvascular ischemia. . Discharge Plan - Discharge Disposition Patient Disposition: 01 Discharge Home - Discharge Condition Condition: Fair - Discharge Order Discharge Orders: Discharge Order (Routine); Ordered 04/05/18 Ordered By: Mandy Payne - Physicians Team Primary Care Provider: UNKNOWN, Attending Provider: Mandy Payne Other Providers: Trae Flores MD ; Mayo Hernandes MD ; Ranjan Fry DO
--- NOTE | 2018-04-05 21:25 | P.PNCA ---
Subjective Interval history: No events overnight Mild hypotension, but up and walking without complaints Medications and Allergies Allergies Allergy/AdvReac Type Severity Reaction Status Date / Time No Allergy Information Allergy Verified 03/29/18 11:38 Available Physical Exam Vital signs: Vital Signs 04/04/18 22:00 04/04/18 23:00 04/05/18 00:00 Temperature 98.9 F Pulse Rate 76 78 94 H Respiratory Rate 17 Blood Pressure 86/50 L Pulse Oximetry 97 04/05/18 01:00 04/05/18 02:00 04/05/18 03:00 Temperature Pulse Rate 90 94 H 93 H Respiratory Rate Blood Pressure Pulse Oximetry 04/05/18 04:00 04/05/18 05:00 04/05/18 06:00 Temperature 97.6 F Pulse Rate 93 H 89 93 H Respiratory Rate 18 Blood Pressure 106/55 L Pulse Oximetry 95 04/05/18 07:00 04/05/18 08:00 04/05/18 09:00 Temperature 98.2 F Pulse Rate 76 91 H 90 Respiratory Rate 18 Blood Pressure 110/55 L Pulse Oximetry 97 97 04/05/18 10:00 04/05/18 11:00 04/05/18 12:00 Temperature 98.6 F Pulse Rate 92 H 86 81 Respiratory Rate 20 Blood Pressure 99/68 L Pulse Oximetry 97 04/05/18 13:00 04/05/18 16:00 Temperature 98.5 F Pulse Rate 86 88 Respiratory Rate 20 Blood Pressure 102/58 L Pulse Oximetry 97 Intake & Output 04/05/18 04/05/18 04/06/18 06:59 18:59 06:59 Intake Total 240 / 240 800 / 800 Output Total 700 / 700 Balance -460 / -460 800 / 800 Weight 72.5 kg Intake: Oral 240 / 240 800 / 800 Output: Urine 700 / 700 Other: # Voids 4 Date of Last Bowel Movement 04/04/18 Narrative: General patient in no acute distress HEENT extraocular movements are intact, clear oropharyngeal mucosa, no JVD Cardiovascular S1-S2 audible, RRR, no murmurs rubs or gallops Respiratory clear to auscultation bilaterally Abdomen soft, nontender, nondistended, normal bowel sounds Extremities no edema 2+ distal pulses in bilateral upper and lower extremities Neuro cranial nerves II through XII intact - Urinary Catheter Management Indwelling Temp Sensing Catheter Cath placed during this visit: yes, but has since been removed by the nurse Reason for continuing: Hourly intake/output Insertion date: 03/29/18 Insertion time: 15:00 Removal date: 04/02/18 Removal time: 08:00 Results 04/05/18 10:53 04/05/18 10:53 CBC 04/04/18 04/05/18 Range/Units 08:16 10:53 WBC 7.9 9.8 (4.0-11.0) th/mm3 RBC 2.84 L 3.18 L (4.50-5.90) mil/mm3 Hgb 9.3 L 10.6 L (13.0-17.0) gm/dL Hct 27.3 L 31.0 L (39.0-51.0) % Plt Count 169 233 D (150-450) th/mm3 Neut # (Auto) 5.5 (1.8-7.7) th/mm3 Lymph # (Auto) 1.1 (1.0-4.8) th/mm3 [place] # (Auto) 1.0 H (0.0-0.9) th/mm3 Eos # (Auto) 0.2 (0.0-0.4) th/mm3 Baso # (Auto) 0.0 (0.0-0.2) th/mm3 Comprehensive Metabolic Panel 04/04/18 04/05/18 Range/Units 08:16 10:53 Sodium 137 137 (136-145) meq/L Potassium 4.0 4.1 (3.5-5.1) meq/L Chloride 102 100 (98-107) meq/L Carbon Dioxide 25.0 28.3 (21.0-32.0) meq/L BUN 15 14 (7-18) mg/dL Creatinine 1.27 1.40 H (0.60-1.30) mg/dL Calcium 8.5 9.1 (8.5-10.1) mg/dL Intake and Output 04/05/18 04/05/18 04/05/18 06:59 14:59 22:59 Intake Total 240 / 240 800 / 800 Output Total 700 / 700 Balance -460 / -460 800 / 800 Intake: Oral 240 / 240 800 / 800 Output: Urine 700 / 700 Other: # Voids 4 Date of Last Bowel Movement 04/04/18 Weight 72.5 kg Assessment and Plan - Assessment (1) ST elevation myocardial infarction (STEMI) Code(s): I21.3 - ST elevation (STEMI) myocardial infarction of unspecified site Status: Acute (2) History of permanent cardiac pacemaker placement Code(s): Z95.0 - Presence of cardiac pacemaker Status: Acute (3) Cardiac arrest with ventricular fibrillation Code(s): I46.9 - Cardiac arrest, cause unspecified; I49.01 - Ventricular fibrillation Status: Acute (4) History of coronary artery stent placement Code(s): Z95.5 - Presence of coronary angioplasty implant and graft Status: Acute (5) Hyperlipidemia Code(s): E78.5 - Hyperlipidemia, unspecified Status: Acute Plan: statin (6) Hypertension Code(s): I10 - Essential (primary) hypertension Status: Acute (7) Acute respiratory failure Code(s): J96.00 - Acute respiratory failure, unspecified whether with hypoxia or hypercapnia Status: Acute - Plan 1) Vfib arrest Due to coronary dissection 2) Inferior STEMI with coronary dissection s/p KAILA to RCA Significant spasm in multiple vessels due to Vfib arrest/ischemia ASA/Brilinta/Statin/BB Add MAKSIM-I 3) Encephalopathy Post cardiac arrest, hypothermia, and rewarming Now AAOx3 4) Hypothermia protocol completed 5) PPM interrogated 11 mins of ventricular fibrillation No other events 6) asked about defibrillator placement Vfib arrest due to inferior STEMI with RCA dissection Would not consider him a candidate as area of concern fixed 7) Physical therapy 8) Cardiovascularly stable for discharge Follow up in the office with me in 2-4 weeks (1) ST elevation myocardial infarction (STEMI) Qualifiers: Involved coronary artery: unspecified coronary artery Qualified Code(s): I21.3 - ST elevation (STEMI) myocardial infarction of unspecified site
== END 2018-04-05 18:57 | disposition home or self-care (01) ==
LOC: NEPC 11:18 → NEDA 11:35 → HIMC 13:06 → HCIS 04-03 22:58
PROVIDERS: ADMIT Hospitalist; ATTEND Hospitalist